=== PATIENT | female | born 1965 | race Caucasian/White ===

== ENCOUNTER 2022-05-20 13:59 | Day surgery (SDC) | payer BC ==
[2022-05-20 15:16] LABS: BASOPHILS # (AUTO) 0.1 X10'3 (0-0.2); BASOPHILS % (AUTO) 0.6 % (0-1); EOSINOPHILS # (AUTO) 0.3 X10'3 (0-0.9); EOSINOPHILS % (AUTO) 2.3 % (0-6); LYMPHOCYTES # (AUTO) 1.9 X10'3 (1.1-4.8); LYMPHOCYTES % (AUTO) 15.4 % (21-51); MEAN CORPUSCULAR HEMOGLOBIN 28.9 PG (27.0-31.0); MEAN CORPUSCULAR HGB CONC 33.4 g/dL (33.0-36.5); MEAN CORPUSCULAR VOLUME 86.5 FL (78-98); MEAN PLATELET VOLUME 9.2 FL (7.4-10.4); MONOCYTES # (AUTO) 0.9 X10'3 (0-0.9); MONOCYTES % (AUTO) 7.3 % (2-12); NEUTROPHILS % (AUTO) 74.4 % (42-75); PRE OP HEMATOCRIT 45.7 % (35.0-45.0); PRE OP HEMOGLOBIN 15.3 g/dL (12.0-16.0); PRE OP PLATELET COUNT 287 X10'3 (140-440); RED BLOOD COUNT 5.28 X10'6 (4.20-5.60); RED CELL DISTRIBUTION WIDTH 13.4 % (11.5-14.5)
[2022-05-20 15:29] LABS: PRE OP INR 0.9 INR; PRE OP PROTIME 9.8 SECONDS (9.0-12.0)
[2022-05-20 15:30] LABS: ALBUMIN 3.3 G/DL (3.4-5.0); ALBUMIN/GLOBULIN RATIO 0.9 (1.1-1.5); ALKALINE PHOSPHATASE 114 IU/L (46-116); BLOOD UREA NITROGEN 18 MG/DL (7-18); CALCIUM 8.8 MG/DL (8.5-10.1); CHLORIDE 100 MMOL/L (99-107); CREATININE 1.06 MG/DL (0.40-0.90); PRE OP ALT 24 U/L (30-65); PRE OP ANION GAP 6 (8-16); PRE OP AST 10 U/L (10-37); PRE OP BILIRUB, TOTAL 0.5 MG/DL (0.0-1.0); PRE OP POTASSIUM 3.4 MMOL/L (3.4-5.1); PRE OP SODIUM 137 MMOL/L (135-145); TOTAL CARBON DIOXIDE 30.8 MMOL/L (24-32); TOTAL PROTEIN 6.9 G/DL (6.4-8.2); eGFR 53 ML/MIN
[2022-05-20 15:35] LABS: PRE OP GLUCOSE 300 MG/DL (70-104)
[2022-05-20 15:39] LABS: HEMOGLOBIN A1C 12.1 % (4.5-6.2)
[2022-05-20] MEDS ORDERED: ATOR40TA PO (15:57)
[2022-05-20] MEDS ORDERED: HYDR12.55 PO (15:57)
[2022-05-20] MEDS ORDERED: SEMA1PEN3 (15:57)
[2022-05-20] MEDS ORDERED: ASPI-529 PO (15:57)
[2022-05-20] MEDS ORDERED: METF-900 PO (15:57)
[2022-05-20] MEDS ORDERED: LOSA25TA96 PO (15:57)
[2022-05-20] MEDS ORDERED: AMLO2.5T2 PO (15:57)
[2022-05-20] MEDS ORDERED: ESCI5TAB PO (15:57)
== END 2022-05-20 23:59 | disposition home or self-care (01) ==
LOC: PRE-OP 13:59 → EDSTATUS 05-23 11:15
PROVIDERS: ATTEND Surgery
DX: Z01.818 Encounter for other preprocedural examination (principal); D49.0 Neoplasm of unspecified behavior of digestive system; Z79.01 Long term (current) use of anticoagulants; Z79.899 Other long term (current) drug therapy; Z98.890 Other specified postprocedural states; Z88.2 Allergy status to sulfonamides; F17.210 Nicotine dependence, cigarettes, uncomplicated; Z90.710 Acquired absence of both cervix and uterus; F41.9 Anxiety disorder, unspecified; E66.01 Morbid (severe) obesity due to excess calories; E11.9 Type 2 diabetes mellitus without complications; Z85.42 Personal history of malignant neoplasm of other parts of uterus
CPT/HCPCS: 36415; 71046; 80053; 83036; 85025; 85610; 85730; 86885; 86900; 86901; 87081; 93005

== ENCOUNTER 2022-06-17 05:48 | Inpatient (IN) | payer BC ==
[2022-06-10 11:26] LABS: BASOPHILS # (AUTO) 0.1 X10'3 (0-0.2); BASOPHILS % (AUTO) 0.6 % (0-1); EOSINOPHILS # (AUTO) 0.2 X10'3 (0-0.9); EOSINOPHILS % (AUTO) 2.2 % (0-6); LYMPHOCYTES # (AUTO) 1.5 X10'3 (1.1-4.8); MEAN CORPUSCULAR HEMOGLOBIN 29.1 PG (27.0-31.0); MEAN CORPUSCULAR HGB CONC 33.6 g/dL (33.0-36.5); MEAN CORPUSCULAR VOLUME 86.7 FL (78-98); MEAN PLATELET VOLUME 9.5 FL (7.4-10.4); MONOCYTES # (AUTO) 0.5 X10'3 (0-0.9); MONOCYTES % (AUTO) 6.1 % (2-12); NEUTROPHILS # (AUTO) 6.6 X10'3 (1.8-7.7); NEUTROPHILS % (AUTO) 74.1 % (42-75); PRE OP HEMATOCRIT 47.2 % (35.0-45.0); PRE OP HEMOGLOBIN 15.8 g/dL (12.0-16.0); PRE OP PLATELET COUNT 292 X10'3 (140-440); RED BLOOD COUNT 5.44 X10'6 (4.20-5.60); RED CELL DISTRIBUTION WIDTH 13.4 % (11.5-14.5)
[2022-06-10 11:37] LABS: CLARITY,URINE CLEAR (Clear); COLOR,URINE YELLOW (Yellow); GLUCOSE, URINE >=1000 mg/dl (Neg); KETONES,URINE NEGATIVE (Neg); LEUKOCYTE ESTERASE ,URINE NEGATIVE (Neg); NITRITES, URINE NEGATIVE (Neg); OCCULT BLOOD,URINE NEGATIVE (Neg); PROTEIN,URINE 30 mg/dl (Neg); UROBILINOGEN,URINE 0.2 E.U/dL (0.2-1.0)
[2022-06-10 11:39] LABS: PRE OP INR 0.9 INR; PRE OP PROTIME 9.8 SECONDS (9.0-12.0)
[2022-06-10 11:40] LABS: BLOOD UREA NITROGEN 19 MG/DL (7-18); BUN/CREATININE RATIO 16.7 (6.6-38.0); CHLORIDE 97 MMOL/L (99-107); CREATININE 1.14 MG/DL (0.40-0.90); PRE OP ANION GAP 9 (8-16); PRE OP POTASSIUM 3.4 MMOL/L (3.4-5.1); PRE OP SODIUM 135 MMOL/L (135-145); TOTAL CARBON DIOXIDE 29.2 MMOL/L (24-32)
[2022-06-10 11:40] LABS: UA COLLECTION TYPE CLN CATCH MIDSTREAM
[2022-06-10 11:41] LABS: ALBUMIN 3.2 G/DL (3.4-5.0); ALBUMIN/GLOBULIN RATIO 0.8 (1.1-1.5); ALKALINE PHOSPHATASE 107 IU/L (46-116); CALCIUM 8.7 MG/DL (8.5-10.1); PRE OP ALT 16 U/L (30-65); PRE OP AST 12 U/L (10-37); PRE OP BILIRUB, TOTAL 0.5 MG/DL (0.0-1.0); eGFR 49 ML/MIN
[2022-06-10 11:42] LABS: PRE OP GLUCOSE 349 MG/DL (70-104)
[2022-06-10 11:45] LABS: YEAST MODERATE /HPF (NEGATIVE)
[2022-06-10 11:46] LABS: BACTERIA,URINE 2+ /HPF (Neg); MUCUS STRANDS NONE SEEN /LPF (Neg); RBC,URINE 0-2 /HPF (0-2); SQUAMOUS EPITHELIAL CELL,UR MODERATE /LPF (FEW)
[~2022-06-17] VITALS: Ht 154.9 cm; Wt 120.5 kg
[2022-06-17] VITALS (31 sets, daily range): BP systolic 147–189; BP diastolic 65–108
[~2022-06-17 05:48] MED LIST: AMLO2.5T2 PO; ASPI-529 PO; ATOR40TA PO; ESCI5TAB PO; HYDR12.55 PO; LOSA25TA96 PO; METF-900 PO; SEMA1PEN3; albuterol 2.5 MG/3 ML nebule NEB ONE; ceFOXitin 2GM-NS 100mL ADDvant 100 ML IV ONE; famotidine 20mg tablet PO ONE; ringers solution, lacted 1,000 ML IV SCH
[2022-06-17] MEDS ORDERED: insulin regular, human U-100 3ml vial - multi-dose IV ONE ×3 (06:25→12:00)
[2022-06-17] MEDS ORDERED: insulin regular, human 10 units/0.1 ml syringe IV ONE (08:00)
[2022-06-17] MEDS ORDERED: INDOCYANINE GREEN 25 MG/10 ML VIAL IV ONE ×3 (08:25→14:16)
[2022-06-17] MEDS: BUPIVAcaine/PF 2.5 mg/ml (0.25%) 30ml vial ONE ×2 (08:45→13:15)
[2022-06-17] MEDS ORDERED: fentaNYL /PF 50mcg/ml 5ml ampule ONE (08:50)
[2022-06-17] MEDS ORDERED: BUPIVACAINE liposomal/PF 13.3 MG/ML vial IM ONE (08:56)
[2022-06-17] MEDS ORDERED: BUPIVAcaine/PF 2.5 mg/ml (0.25%) 30ml vial ONE (08:56)
[2022-06-17] MEDS ORDERED: sevoflurane 250ml liquid IH ONE (12:20)
[2022-06-17] MEDS ORDERED: propofol inj 20 ML IV ONE (13:05)
[2022-06-17] MEDS ORDERED: rocuronium 10mg/ml inj IV ONE ×3 (13:06→14:28)
[2022-06-17] MEDS ORDERED: ondansetron/PF 4mg/2ml inj ONE (13:06)
[2022-06-17] MEDS ORDERED: LIDOcaine 2% (20mg/ml) 5ml vial ONE (13:06)
[2022-06-17] MEDS ORDERED: labetalol 20mg/4ml (5mg/ml) syringe IV ONE ×3 (13:29→16:18)
[2022-06-17] MEDS ORDERED: fentaNYL/PF 50MCG/1 ML 2ML syringe IV PRN ×2 (13:40)
[2022-06-17] MEDS ORDERED: labetalol 20mg/4ml (5mg/ml) syringe IV PRN (13:40)
[2022-06-17] MEDS ORDERED: ringers solution, lacted 1,000 ML IV SCH (13:40)
[2022-06-17] MEDS ORDERED: morphine 2 MG/ML inj. syringe IV PRN (13:40)
[2022-06-17] MEDS ORDERED: morphine 4 MG/ML inj SYRINge IV PRN (13:40)
[2022-06-17] MEDS ORDERED: ondansetron/PF 4mg/2ml inj IV PRN ×2 (13:40→16:50)
[2022-06-17] MEDS ORDERED: hydrALAZINE 20mg/ml inj. IV ONE ×2 (13:46→15:58)
[2022-06-17] MEDS ORDERED: sugammadex 200mg/2ml injection IV ONE (13:50)
--- NOTE | 2022-06-17 16:45 | NUR ---
Received from OR via HOSPITAL BED, accompanied by Anesthesiologist and OR NURSE. PT DROWSY DOES NOT APPEAR TO BE IN DISTRESS OR DISCOMFORT. ABDOMEN WITH 4 LAP SITES; 2 WITH BANDAIDS AND 2 WITH ALAN AND SMALL TEFLA DRESSING. ALAN WITH SEROSANGUINESS DRAINAGE. VELASCO CATHETER TO GRAVITY WITH YELLOW URINE. PT HTN; MD AWARE WILL GIVE MEDS PER ORDER. report given by Anesthesiolgist. Addendum: 06/17/22 at 1731 by Lavern Padilla RN Amended: Links added.
[2022-06-17] MEDS ORDERED: naloxone 0.4 mg/ml inj IV PRN (16:50)
[2022-06-17] MEDS ORDERED: HYDROmorphone inj. 0.5 MG/0.5 ML DISP.SYRIN IV PRN (16:50)
[2022-06-17] MEDS ORDERED: MESSAGE TO PHARMACY PO ONE (17:05)
[2022-06-17] MEDS ORDERED: dextrose 50%-water 50ml dispensing syringe IV PRN ×2 (17:05)
[2022-06-17] MEDS ORDERED: glucagon, human recombinant 1mg kit SUBCUT PRN (17:05)
[2022-06-17] MEDS ORDERED: DEXTROSE 15 GM of carb/4 tabs (each vial/BOTTLE has 4 tablets) PO PRN ×2 (17:05)
[2022-06-17] MEDS ORDERED: insulin Lispro (HumaLOG) vial - multi-dose SQ SCH ×2 (17:05→17:49)
--- NOTE | 2022-06-17 17:14 | NUR ---
PT VOMITED GREEN BILE WITH CONCERN OF ASPIRATION. 50 ML OUTPUT; MALATHI GIVEN AND NOTIFIED. ORDERS FOR CHEST XRAY Addendum: 06/17/22 at 1735 by Lavern Padilla RN Amended: Links added.
[2022-06-17] MEDS: hydrALAZINE 20mg/ml inj. IV PRN ×2 (17:16→18:06)
--- NOTE | 2022-06-17 18:55 | NUR ---
Received report from LEANDRO Govea. Awaiting patient arrival to the floor.
[2022-06-17 19:05] LABS: ABG BASE EXCESS -2.4 mmol/L (-2.0-2.0); ABG HCO3 22.7 mmol/L (22.0-26.0); ABG PCO2 (T) 38.8 mmHg (32.0-45.0); ABG PO2 (T) 71.4 mmHg (75.0-100.0); ALLEN'S TEST POSITIVE; FCOHb 0.4 % (0.0-3.9); FLOW 4 L/min; FMetHb 0.4 % (0.0-1.5); FO2Hb 94.2 % (94-97); PATIENT TEMPERATURE 36.3
[2022-06-17] MEDS: nitroGLYCERIN 0.4mg/hour patch TD SCH (19:09)
[2022-06-17] MEDS: metoclopramide 5 mg/ml inj IV SCH (19:16)
--- NOTE | 2022-06-17 19:55 | NUR ---
DR MARTINEZ IN TO ASSESS PT; PT HAD SMALL AMOUNT OF GREEN BILE EMESIS,ORDERS RECEIVED TO PLACX AN NGT AND REMOVE IF NO OUTPUT. NG PLACED PT DID NOT TOLERATE WELL, NO OUTPUT, NGT D'CD. Report called to receiving nurse. Transferred via BED. 2 BAGS OF Belongings RECEIVING NURSE AT BEDSIDE; BLL, CALL LIGHT GIVEN. SR UP X2. Special Issues communicated to receiving nurse. Addendum: 06/17/22 at 2105 by Lavern Padilla RN Amended: Links added.
[2022-06-17] MEDS: Potassium Cl inj 20 MEQ in ringers solution, lacted 1,000 ML IV SCH (22:04)
[2022-06-17] MEDS: insulin glargine (Lantus) pen - multi-dose SQ SCH (22:37)
[2022-06-18] VITALS (7 sets, daily range): BP systolic 132–203; BP diastolic 65–91
[2022-06-18] MEDS: Potassium Cl inj 20 MEQ in ringers solution, lacted 1,000 ML IV SCH ×3 (00:55→17:05)
[2022-06-18] MEDS: ceFOXitin inj 1,000 MG in normal saline 100ml IV soln 100 ML IV SCH ×2 (01:28→07:31)
[2022-06-18] MEDS: metoclopramide 5 mg/ml inj IV SCH ×4 (01:29→20:24)
[2022-06-18 06:10] LABS: BASOPHILS % (AUTO) 0.2 % (0-1); EOSINOPHILS % (AUTO) 0 % (0-6); HEMATOCRIT 43.7 % (35.0-45.0); HEMOGLOBIN 14.7 g/dl (12.0-16.0); LYMPHOCYTES # (AUTO) 0.9 X10'3 (1.1-4.8); LYMPHOCYTES % (AUTO) 4.8 % (21-51); MEAN CORPUSCULAR HEMOGLOBIN 29.4 PG (27.0-31.0); MEAN CORPUSCULAR HGB CONC 33.5 g/dL (33.0-36.5); MEAN CORPUSCULAR VOLUME 87.7 FL (78-98); MEAN PLATELET VOLUME 9.5 FL (7.4-10.4); MONOCYTES # (AUTO) 1.1 X10'3 (0-0.9); MONOCYTES % (AUTO) 5.9 % (2-12); NEUTROPHILS # (AUTO) 16.1 X10'3 (1.8-7.7); NEUTROPHILS % (AUTO) 89.1 % (42-75); PLATELET COUNT 263 X10'3 (140-440); RED BLOOD COUNT 4.98 X10'6 (4.20-5.60); RED CELL DISTRIBUTION WIDTH 13.9 % (11.5-14.5); WHITE BLOOD COUNT 18.1 X10'3 (4.5-11.0)
[2022-06-18 06:11] LABS: ALBUMIN 2.9 G/DL (3.4-5.0); ANION GAP 9 (8-16); BLOOD UREA NITROGEN 13 MG/DL (7-18); BUN/CREATININE RATIO 9.6 (6.6-38.0); CALCIUM 8.4 MG/DL (8.5-10.1); CHLORIDE 100 MMOL/L (99-107); CREATININE 1.35 MG/DL (0.40-0.90); GLUCOSE 344 MG/DL (70-104); POTASSIUM 3.4 MMOL/L (3.5-5.1); SODIUM 139 MMOL/L (135-145); TOTAL CARBON DIOXIDE 29.7 MMOL/L (24-32); eGFR 40 ML/MIN
--- NOTE | 2022-06-18 06:20 | NUR ---
received report from fer arguello
--- NOTE | 2022-06-18 06:22 | NUR ---
Problems reprioritized. Patient report given, questions answered & plan of care reviewed with LEANDRO Mclean.
[2022-06-18] MEDS: aspirin 81mg, enteric-coated 1 TAB TABLET.DR PO SCH (07:30)
[2022-06-18] MEDS: HYDROcodone/acetaminophen 5mg/325mg tablet PO PRN ×2 (07:30→20:34)
[2022-06-18] MEDS: atorvastatin 20mg tablet PO SCH (07:31)
[2022-06-18] MEDS ORDERED: amLODIPine 2.5mg tablet PO SCH (08:00)
[2022-06-18] MEDS: nitroGLYCERIN 0.4mg/hour patch TD SCH (08:00)
[2022-06-18] MEDS ORDERED: ESCITALOPRAM OXALATE 5 MG TABLET PO SCH ×2 (08:00→10:18)
[2022-06-18] MEDS: insulin Lispro (HumaLOG) vial - multi-dose SQ SCH ×3 (09:02→19:16)
[2022-06-18] MEDS ORDERED: potassium Cl 40MEQ/1/2NS 520ml 520 ML IV PRN ×2 (13:45)
[2022-06-18] MEDS ORDERED: potassium Cl 20 mEq SR tablet PO PRN (13:45)
--- NOTE | 2022-06-18 14:16 | NUR ---
THIS MORNING I WALKED PT TO BATHROOM TO VOID PT HAS NOT HAS VOIDED FOR A WHILE THEREFORE, I BLADDER SCANNED PT, SCANNER SHOWED 3ML IN BLADDER, CONTINUE TO ENCOURAGE PO INTAKE
--- NOTE | 2022-06-18 14:54 | NUR ---
EDUCATED PT ON USING HER IS, PT RETURNED DEMO HOW TO USE TO IS, CONTINUE TO ENCOURAGE PT TO USE HER IS
[2022-06-18] MEDS: potassium Cl 20 mEq SR tablet PO PRN ×2 (15:12→20:32)
--- NOTE | 2022-06-18 15:53 | NUR ---
[facility] PHARMACIST DISCOVERED THAT PT TAKES 10 MG OF LEXAPRO DAILY AT HOME, THIS MORNING PT TOOK 50 MG OF LEXAPRO THAT WAS SCHEDULED TO BE ADMIN ON HER EMAR, PT DOES REPORT CURRENTLY TAKING LEXAPRO BUT IS UNABLE TO TELL THE NURSE THE DOSE, [facility] PHARMACIST AND NURSE CALLED PT [facility] ON [address] IN [place], [place] AND [facility] TOLD ME AND [facility] PHARMACIST THAT PT HAS NOT FILLED HER 10 MG LEXAPRO SINCE SEP 2021, THEREFORE, [facility] DISCONTINUED LEXAPRO AT THIS TIME, SURGEON IN SURGERY AT THIS TIME, THEREFORE UNABLE TO NOTIFY SURGEON OF MEDICATION STOPPAGE, CONTINUE TO MONITOR PT
--- NOTE | 2022-06-18 18:21 | NUR ---
GAVE REPORT TO February
[2022-06-18] MEDS: ceFOXitin 2GM-NS 100mL ADDvant 100 ML IV SCH (20:17)
[2022-06-18] MEDS: losartan 50mg tablet PO SCH (20:21)
[2022-06-18] MEDS: HYDROchlorothiazide 12.5mg capsule PO SCH (20:22)
[2022-06-18] MEDS: insulin glargine (Lantus) pen - multi-dose SQ SCH (22:54)
[2022-06-19] VITALS (8 sets, daily range): BP systolic 163–199; BP diastolic 78–93
[2022-06-19] MEDS: Potassium Cl inj 20 MEQ in ringers solution, lacted 1,000 ML IV SCH ×3 (01:10→17:20)
[2022-06-19] MEDS ORDERED: nitroGLYCERIN 0.4mg/hour patch TD SCH ×2 (02:12→02:17)
[2022-06-19] MEDS: metoclopramide 5 mg/ml inj IV SCH ×4 (02:28→21:13)
[2022-06-19] MEDS: ceFOXitin 2GM-NS 100mL ADDvant 100 ML IV SCH ×4 (02:28→21:13)
[2022-06-19] MEDS: potassium Cl 20 mEq SR tablet PO PRN (02:50)
[2022-06-19] MEDS: HYDROcodone/acetaminophen 5mg/325mg tablet PO PRN (05:33)
--- NOTE | 2022-06-19 06:10 | NUR ---
Patient in room ORTHO 4021. I have received report from February and had the opportunity to ask questions and assume patient care.
[2022-06-19 06:12] LABS: BASOPHILS % (AUTO) 0.2 % (0-1); EOSINOPHILS % (AUTO) 0.1 % (0-6); HEMATOCRIT 43.3 % (35.0-45.0); HEMOGLOBIN 14.1 g/dl (12.0-16.0); LYMPHOCYTES # (AUTO) 1.1 X10'3 (1.1-4.8); LYMPHOCYTES % (AUTO) 6.8 % (21-51); MEAN CORPUSCULAR HEMOGLOBIN 29.2 PG (27.0-31.0); MEAN CORPUSCULAR HGB CONC 32.6 g/dL (33.0-36.5); MEAN CORPUSCULAR VOLUME 89.5 FL (78-98); MEAN PLATELET VOLUME 9.7 FL (7.4-10.4); MONOCYTES # (AUTO) 1.1 X10'3 (0-0.9); MONOCYTES % (AUTO) 6.9 % (2-12); NEUTROPHILS # (AUTO) 13.9 X10'3 (1.8-7.7); PLATELET COUNT 260 X10'3 (140-440); RED BLOOD COUNT 4.84 X10'6 (4.20-5.60); RED CELL DISTRIBUTION WIDTH 14.4 % (11.5-14.5); WHITE BLOOD COUNT 16.2 X10'3 (4.5-11.0)
[2022-06-19 06:16] LABS: ALBUMIN 2.9 G/DL (3.4-5.0); ANION GAP 9 (8-16); BLOOD UREA NITROGEN 12 MG/DL (7-18); BUN/CREATININE RATIO 9.8 (6.6-38.0); CALCIUM 8.9 MG/DL (8.5-10.1); CHLORIDE 104 MMOL/L (99-107); CREATININE 1.22 MG/DL (0.40-0.90); GLUCOSE 228 MG/DL (70-104); POTASSIUM 3.8 MMOL/L (3.5-5.1); SODIUM 142 MMOL/L (135-145); TOTAL CARBON DIOXIDE 29.1 MMOL/L (24-32); eGFR 45 ML/MIN
[2022-06-19] MEDS: aspirin 81mg, enteric-coated 1 TAB TABLET.DR PO SCH (08:14)
[2022-06-19] MEDS: amLODIPine 5mg tablet PO SCH (08:15)
[2022-06-19] MEDS: atorvastatin 20mg tablet PO SCH (08:15)
[2022-06-19] MEDS: insulin Lispro (HumaLOG) vial - multi-dose SQ SCH ×3 (08:37→19:08)
--- NOTE | 2022-06-19 13:06 | NUR ---
Reviewed charting with Amanda during documentation. I agree with the charted assessment.
--- NOTE | 2022-06-19 18:23 | NUR ---
Problems reprioritized. Patient report given, questions answered & plan of care reviewed with Kavita.
--- NOTE | 2022-06-19 18:23 | NUR ---
Patient in room ORTHO 4021. I have received report from Chaya REEVES and had the opportunity to ask questions and assume patient care.
[2022-06-19] MEDS: HYDROchlorothiazide 12.5mg capsule PO SCH (21:14)
[2022-06-19] MEDS: losartan 50mg tablet PO SCH (21:14)
[2022-06-19] MEDS: insulin glargine (Lantus) pen - multi-dose SQ SCH (21:36)
[2022-06-20] MEDS: ceFOXitin 2GM-NS 100mL ADDvant 100 ML IV SCH ×4 (01:23→15:19)
[2022-06-20] MEDS: Potassium Cl inj 20 MEQ in ringers solution, lacted 1,000 ML IV SCH ×2 (02:06→09:30)
[2022-06-20] MEDS: metoclopramide 5 mg/ml inj IV SCH ×4 (02:06→15:19)
[2022-06-20] MEDS: HYDROcodone/acetaminophen 5mg/325mg tablet PO PRN (05:10)
[2022-06-20] MEDS: amLODIPine 5mg tablet PO SCH (06:09)
[2022-06-20 06:21] LABS: BASOPHILS % (AUTO) 0.3 % (0-1); EOSINOPHILS # (AUTO) 0.2 X10'3 (0-0.9); EOSINOPHILS % (AUTO) 1.3 % (0-6); HEMATOCRIT 42.6 % (35.0-45.0); HEMOGLOBIN 14.2 g/dl (12.0-16.0); LYMPHOCYTES # (AUTO) 1.5 X10'3 (1.1-4.8); MEAN CORPUSCULAR HEMOGLOBIN 29.6 PG (27.0-31.0); MEAN CORPUSCULAR HGB CONC 33.4 g/dL (33.0-36.5); MEAN CORPUSCULAR VOLUME 88.6 FL (78-98); MEAN PLATELET VOLUME 9.5 FL (7.4-10.4); MONOCYTES % (AUTO) 7.8 % (2-12); NEUTROPHILS % (AUTO) 78.6 % (42-75); PLATELET COUNT 234 X10'3 (140-440); RED BLOOD COUNT 4.81 X10'6 (4.20-5.60); WHITE BLOOD COUNT 12.7 X10'3 (4.5-11.0)
--- NOTE | 2022-06-20 06:28 | NUR ---
Problems reprioritized. Patient report given, questions answered & plan of care reviewed with Dione REEVES.
[2022-06-20 06:53] LABS: ALBUMIN 2.7 G/DL (3.4-5.0); ANION GAP 8 (8-16); BLOOD UREA NITROGEN 10 MG/DL (7-18); CALCIUM 8.9 MG/DL (8.5-10.1); CHLORIDE 103 MMOL/L (99-107); CREATININE 0.91 MG/DL (0.40-0.90); GLUCOSE 149 MG/DL (70-104); POTASSIUM 3.4 MMOL/L (3.5-5.1); SODIUM 142 MMOL/L (135-145); TOTAL CARBON DIOXIDE 31.2 MMOL/L (24-32); eGFR 63 ML/MIN
[2022-06-20 07:30] VITALS: BP 196/99
[2022-06-20] MEDS: aspirin 81mg, enteric-coated 1 TAB TABLET.DR PO SCH (09:21)
[2022-06-20] MEDS: atorvastatin 20mg tablet PO SCH (09:21)
[2022-06-20] MEDS: insulin Lispro (HumaLOG) vial - multi-dose SQ SCH (09:24)
[2022-06-20 10:00] VITALS: BP 182/93
--- NOTE | 2022-06-20 10:31 | NUR ---
0800 dose of mefoxin "out for delivery" per pharmacy @ 4190
--- NOTE | 2022-06-20 16:35 | NUR ---
Patient stable and appropriate for discharge home. IV and library monitor removed. All belongings taken from room. ALAN drain dc'd without incident. All discharge instructions and education given and reviewed with patient, all questions answered. New RX sent by Dr. Roa office.
== END 2022-06-20 16:30 | disposition home or self-care (01) | DRG 331 ==
LOC: PAS IN 05:48 → ORTHO 4S 20:01
PROVIDERS: ADMIT Surgery; ATTEND Surgery
PROC: 0DTF0ZZ Resection of Right Large Intestine, Open Approach (ICD-10-PCS; principal; 2022-06-18)
PROC: 8E0W0CZ Robotic Assisted Procedure of Trunk Region, Open Approach (ICD-10-PCS; 2022-06-18)
DX: D12.2 Benign neoplasm of ascending colon (principal); Z79.899 Other long term (current) drug therapy; Z20.822 Contact with and (suspected) exposure to COVID-19
CPT/HCPCS: Z7506; Z7508; 36415; 36600; 71045; 80048; 80053; 81001; 82803; 82948; 85018; 85025; 85610; 85730; 86885; 86900; 86901; 87081; 87088; 87811; A4215; A4615; A4618; A6209; A6223; A6258; A6402; C1758; C9290; G0378; J0360; J0694; J1170; J1815; J2405; J2704; J2765; J3010; J3480; J3490; J7030; J7120

== ENCOUNTER 2022-12-04 17:07 | Inpatient (IN) | payer BC ==
[~2022-12-04] VITALS: Ht 154.9 cm; Wt 130.0 kg
[2022-12-04] MEDS: normal saline 1000ml 1,000 ML IV SCH ×2 (02:00→21:40)
[~2022-12-04 17:07] MED LIST changes: +ASPI-280 PO; +ATOR20TA66 PO; +CLOP75TA34 PO; -ESCI5TAB PO; -METF-900 PO; -SEMA1PEN3; -albuterol 2.5 MG/3 ML nebule NEB ONE; -ceFOXitin 2GM-NS 100mL ADDvant 100 ML IV ONE; -famotidine 20mg tablet PO ONE; -ringers solution, lacted 1,000 ML IV SCH
--- NOTE | 2022-12-04 17:46 | NUR ---
back from CT
[2022-12-04 17:51] LABS: BASOPHILS % (AUTO) 0.3 % (0-1); EOSINOPHILS % (AUTO) 0.1 % (0-6); HEMATOCRIT 50.4 % (35.0-45.0); HEMOGLOBIN 16.2 g/dl (12.0-16.0); LYMPHOCYTES # (AUTO) 1.1 X10'3 (1.1-4.8); LYMPHOCYTES % (AUTO) 7.8 % (21-51); MEAN CORPUSCULAR HEMOGLOBIN 28.7 PG (27.0-31.0); MEAN CORPUSCULAR HGB CONC 32.1 g/dL (33.0-36.5); MEAN CORPUSCULAR VOLUME 89.4 FL (78-98); MEAN PLATELET VOLUME 9.5 FL (7.4-10.4); MONOCYTES # (AUTO) 0.9 X10'3 (0-0.9); MONOCYTES % (AUTO) 6.4 % (2-12); NEUTROPHILS # (AUTO) 11.9 X10'3 (1.8-7.7); NEUTROPHILS % (AUTO) 85.4 % (42-75); PLATELET COUNT 339 X10'3 (140-440); RED BLOOD COUNT 5.64 X10'6 (4.20-5.60); RED CELL DISTRIBUTION WIDTH 13.3 % (11.5-14.5); WHITE BLOOD COUNT 13.9 X10'3 (4.5-11.0)
[2022-12-04 18:05] LABS: APTT 25 SECONDS (22-32)
[2022-12-04 18:13] LABS: ALANINE AMINOTRANSFERASE 23 U/L (12-78); ALBUMIN 3.8 G/DL (3.4-5.0); ALBUMIN/GLOBULIN RATIO 1.1 (1.1-1.5); ALKALINE PHOSPHATASE 113 IU/L (46-116); ANION GAP 8 (8-16); ASPARTATE AMINO TRANSFERASE 16 U/L (10-37); BILIRUBIN,TOTAL 1.2 MG/DL (0.1-1.0); BLOOD UREA NITROGEN 61 MG/DL (7-18); BUN/CREATININE RATIO 31.8 (6.6-38.0); CALCIUM 10.2 MG/DL (8.5-10.1); CHLORIDE 95 MMOL/L (99-107); CREATININE 1.92 MG/DL (0.40-0.90); GLUCOSE 342 MG/DL (70-104); SODIUM 139 MMOL/L (135-145); TOTAL CARBON DIOXIDE 36.2 MMOL/L (24-32); TOTAL PROTEIN 7.4 G/DL (6.4-8.2); eGFR 27 ML/MIN
[2022-12-04] MEDS ORDERED: normal saline 1000ML IV soln IVB ONE ×2 (18:35→19:30)
[2022-12-04] MEDS ORDERED: potassium Cl 20 mEq SR tablet PO ONE (18:37)
[2022-12-04 18:44] LABS: CLARITY,URINE SLIGHTLY CLOUDY (Clear); COLOR,URINE YELLOW (Yellow); GLUCOSE, URINE 500 mg/dl (Neg); KETONES,URINE TRACE mg/dl (Neg); LEUKOCYTE ESTERASE ,URINE NEGATIVE (Neg); NITRITES, URINE NEGATIVE (Neg); OCCULT BLOOD,URINE NEGATIVE (Neg); PH,URINE 5.5 (4.8-8.0); PROTEIN,URINE 30 mg/dl (Neg); UROBILINOGEN,URINE 0.2 E.U/dL (0.2-1.0)
[2022-12-04 18:51] LABS: UA COLLECTION TYPE STRAIGHT CATH
[2022-12-04 18:55] LABS: BACTERIA,URINE 2+ /HPF (Neg); MUCUS STRANDS FEW /LPF (Neg); SQUAMOUS EPITHELIAL CELL,UR FEW /LPF (FEW); TRANSITIONAL EPI CELLS,URINE FEW /HPF
[2022-12-04] MEDS ORDERED: CefTRIAXone 2gm/D5W 50ml BAG 50 ML IV ONE (19:30)
[2022-12-04] MEDS ORDERED: CEPH500C2 PO (20:50)
--- NOTE | 2022-12-04 21:32 | NUR ---
Pt. was helped getting OOB to w/c with max assist for discharge. Spoke with Dr. Dixon and felt this would not be a safe discharge. Dr. Dixon at bedside while I went to get larger W/C. Upon my return patient had slid down to the floor. Required max assist to get patient back to bed. Discharge cancelled per Dr. Dixon. Pt. minimally verbalizes, only able to answer questions that are yes/no answers and able to say her first and middle name.
[2022-12-04] MEDS ORDERED: ondansetron 4mg rapidly disintigrating tab PO PRN (21:40)
[2022-12-04] MEDS ORDERED: magnesium hydroxide 30ml (MOM) UD suspension PO PRN (21:40)
[2022-12-04] MEDS ORDERED: ondansetron/PF 4mg/2ml inj IV PRN (21:40)
[2022-12-04] MEDS ORDERED: Insulin Reg/NS 100units/100mL 100 ML IV SCH (21:40)
[2022-12-04] MEDS ORDERED: sodium bicarbonate (8.4%) inj. 50 MEQ in dextrose 5% water 500ml 250 ML IV PRN (21:40)
[2022-12-04] MEDS ORDERED: acetaminophen 650mg rectal suppository RC PRN (21:40)
[2022-12-04] MEDS ORDERED: sodium bicarbonate (8.4%) inj. 100 MEQ in dextrose 5% water 500ml 500 ML IV PRN (21:40)
[2022-12-04] MEDS ORDERED: potassium Cl 20 mEq SR tablet PO PRN ×3 (21:40)
[2022-12-04] MEDS ORDERED: sodium phosphate inj. 15 MMOL in dextrose 5%-water 250 ML IV PRN (21:40)
[2022-12-04] MEDS ORDERED: Neutra Phos packet PO PRN (21:40)
[2022-12-04] MEDS ORDERED: mag hydrox/Alum hydrox/simeth 30ml oral suspension PO PRN (21:40)
[2022-12-04] MEDS ORDERED: acetaminophen 325mg tablet PO PRN ×2 (21:40)
[2022-12-04] MEDS ORDERED: insulin regular, human U-100 3ml vial - multi-dose IV PRN (21:40)
[2022-12-04] MEDS ORDERED: magnesium 4gm in 100ml NS 100 ML IV PRN (21:40)
[2022-12-04] MEDS ORDERED: potassium CL 20mEq in D5-1/2NS 1,000 ML IV PRN (21:40)
[2022-12-04] MEDS ORDERED: sodium phosphate inj. 30 MMOL in dextrose 5%-water 250 ML IV PRN (21:40)
[2022-12-04] MEDS ORDERED: magnesium Cl slow-release 64mg tablet PO PRN (21:40)
[2022-12-04] MEDS ORDERED: potassium Cl 40MEQ/1/2NS 520ml 520 ML IV PRN ×3 (21:40)
[2022-12-04] MEDS ORDERED: normal saline 1000ml 1,000 ML IV SCH ×2 (21:40)
[2022-12-04 21:46] LABS: ABG BASE EXCESS 6.9 mmol/L (-2.0-2.0); ABG HCO3 30.3 mmol/L (22.0-26.0); ABG OXYGEN SATURATION 95.3 % (94-97); ABG PCO2 (T) 37.9 mmHg (32.0-45.0); ABG PO2 (T) 70.4 mmHg (75.0-100.0); ALLEN'S TEST POSITIVE; FCOHb 1.4 % (0.0-3.9); FMetHb 0.2 % (0.0-1.5); FO2Hb 93.8 % (94-97); PATIENT TEMPERATURE 36.5; TOTAL HEMOGLOBIN 16.4 G/dl (12.0-16.0)
[2022-12-04 22:15] LABS: PHOSPHORUS 3.3 MG/DL (2.3-4.5)
--- NOTE | 2022-12-04 22:40 | NUR ---
SPOKE TO DR. JACKSON REGARDING STARTING THE INSULIN GTT THAT WAS ORDERED AND K LEVEL OF 3.O. INSULIN GTT NOT TO BE STARTED PER DR. JACKSON, HE PUT IN NEW ORDER FOR INSULIN PROTOCOL AND CANCELLED THE DKA PROTOCOL.
[2022-12-04] MEDS ORDERED: dextrose 50%-water 50ml dispensing syringe IV PRN ×2 (23:30)
[2022-12-04] MEDS ORDERED: insulin regular, human U-100 3ml vial - multi-dose SQ SCH (23:30)
[2022-12-04] MEDS ORDERED: MESSAGE TO PHARMACY PO ONE (23:30)
[2022-12-04] MEDS ORDERED: DEXTROSE 15 GM of carb/4 tabs (each vial/BOTTLE has 4 tablets) PO PRN ×2 (23:30)
[2022-12-04] MEDS ORDERED: glucagon, human recombinant 1mg kit SUBCUT PRN (23:30)
[2022-12-05] MEDS: potassium Cl 40MEQ/1/2NS 520ml 520 ML IV SCH ×2 (00:34→04:21)
[2022-12-05 03:34] LABS: BASOPHILS % (AUTO) 0.2 % (0-1); EOSINOPHILS # (AUTO) 0.1 X10'3 (0-0.9); EOSINOPHILS % (AUTO) 0.5 % (0-6); HEMATOCRIT 43.6 % (35.0-45.0); HEMOGLOBIN 14.2 g/dl (12.0-16.0); LYMPHOCYTES # (AUTO) 1.5 X10'3 (1.1-4.8); MEAN CORPUSCULAR HEMOGLOBIN 29.1 PG (27.0-31.0); MEAN CORPUSCULAR HGB CONC 32.7 g/dL (33.0-36.5); MEAN CORPUSCULAR VOLUME 89.2 FL (78-98); MEAN PLATELET VOLUME 9.5 FL (7.4-10.4); MONOCYTES # (AUTO) 1.5 X10'3 (0-0.9); MONOCYTES % (AUTO) 11.6 % (2-12); NEUTROPHILS # (AUTO) 9.7 X10'3 (1.8-7.7); NEUTROPHILS % (AUTO) 75.7 % (42-75); PLATELET COUNT 284 X10'3 (140-440); RED BLOOD COUNT 4.88 X10'6 (4.20-5.60); RED CELL DISTRIBUTION WIDTH 13.3 % (11.5-14.5); WHITE BLOOD COUNT 12.8 X10'3 (4.5-11.0)
[2022-12-05 03:46] LABS: ALANINE AMINOTRANSFERASE 19 U/L (12-78); ALKALINE PHOSPHATASE 90 IU/L (46-116); ANION GAP 6 (8-16); ASPARTATE AMINO TRANSFERASE 13 U/L (10-37); BILIRUBIN,TOTAL 0.9 MG/DL (0.1-1.0); BLOOD UREA NITROGEN 64 MG/DL (7-18); BUN/CREATININE RATIO 32.7 (6.6-38.0); CALCIUM 8.8 MG/DL (8.5-10.1); CHLORIDE 103 MMOL/L (99-107); CREATININE 1.96 MG/DL (0.40-0.90); GLUCOSE 260 MG/DL (70-104); MAGNESIUM 2.1 MG/DL (1.5-2.4); PHOSPHORUS 3.5 MG/DL (2.3-4.5); POTASSIUM 3.6 MMOL/L (3.5-5.1); SODIUM 143 MMOL/L (135-145); TOTAL CARBON DIOXIDE 33.8 MMOL/L (24-32); eGFR 26 ML/MIN
--- NOTE | 2022-12-05 04:41 | NUR ---
PT. HAS BEEN SLEEPING MOST OF NIGHT WITHOUT DISTRESS. PURE WICK PLACED EARLIER IN THE EVENING, NO URINE OUTPUT AND HAS NOT BEEN INCONTINENT OF URINE.
--- NOTE | 2022-12-05 07:49 | NUR ---
Pt was seen by Cyril Speech Therapist. Patient passed the swallow eval, recommended mechanical soft diet
[2022-12-05] MEDS ORDERED: K and/or MAG REPLACEMENT MC SCH (08:00)
[2022-12-05] MEDS: docusate sod 100mg capsule PO SCH ×2 (08:00→19:39)
--- NOTE | 2022-12-05 08:05 | NUR ---
Attempted to give report to the nurse, the nurse not available at this time, just got a new patient.
[2022-12-05 09:15] VITALS: BP 198/88
--- NOTE | 2022-12-05 09:31 | NUR ---
Received report From Shanna, Patient arrived on floor at 0915, settled in room educated community relations specialist light. B/P , No Meds ordered to lower B/P. Paged Hospitalist Page Sent promotional table spacer PAGER ID: [phone] MESSAGE: RE: 347B Aimee Benitez, B/P , no med orders, please advise. [facility] 3864
[2022-12-05] MEDS: K and/or MAG REPLACEMENT MC SCH ×2 (10:09→19:31)
--- NOTE | 2022-12-05 10:17 | NUR ---
Noted pt hx DM A1C 11.4 11/21/22 recent admit; pt seen by CHRISSY for written/verbal DM diet ed 11/22/22. Pt endorsed non-compliance w/ no desire to follow or seek DM treatment at that time. Addendum: 12/05/22 at [address] Amended: Links added.
[2022-12-05 11:31] VITALS: BP 171/73
[2022-12-05] MEDS: hydrALAZINE 20mg/ml inj. IV PRN (12:28)
[2022-12-05] MEDS: insulin Lispro (HumaLOG) vial - multi-dose SQ SCH (13:19)
[2022-12-05 14:47] VITALS: BP 159/85
--- NOTE | 2022-12-05 16:44 | NUR ---
Per patient request Re 347B Aimee Benitze, Patient requesting X-ray of bilateral knees, has lg bruise on both knees from fall prior to admit. Please advise Patsy, Surgical [id number] Addendum: 12/05/22 at 1645 by Patsy Moore RN Page to Hospitalist
[2022-12-05 18:00] VITALS: BP 166/77
--- NOTE | 2022-12-05 18:12 | NUR ---
Problems reprioritized. Patient report given, questions answered & plan of care reviewed with Daisha RN.
--- NOTE | 2022-12-05 19:04 | NUR ---
Patient in room [facility] 347. I have received report from ALYSON REEVES and had the opportunity to ask questions and assume patient care.
[2022-12-05] MEDS: CefTRIAXone/D5W-Rocephin 1gm 50 ML IV SCH (19:39)
[2022-12-05] MEDS: insulin glargine (Lantus) pen - multi-dose SQ SCH (21:58)
[2022-12-05 22:00] VITALS: BP 137/90
[2022-12-06 04:40] LABS: BASOPHILS # (AUTO) 0.1 X10'3 (0-0.2); BASOPHILS % (AUTO) 0.6 % (0-1); EOSINOPHILS # (AUTO) 0.2 X10'3 (0-0.9); HEMATOCRIT 41.1 % (35.0-45.0); HEMOGLOBIN 13.6 g/dl (12.0-16.0); LYMPHOCYTES # (AUTO) 1.6 X10'3 (1.1-4.8); LYMPHOCYTES % (AUTO) 17.5 % (21-51); MEAN CORPUSCULAR HEMOGLOBIN 29.7 PG (27.0-31.0); MEAN CORPUSCULAR HGB CONC 33.1 g/dL (33.0-36.5); MEAN CORPUSCULAR VOLUME 89.6 FL (78-98); MEAN PLATELET VOLUME 9.4 FL (7.4-10.4); MONOCYTES # (AUTO) 0.8 X10'3 (0-0.9); MONOCYTES % (AUTO) 8.6 % (2-12); NEUTROPHILS # (AUTO) 6.5 X10'3 (1.8-7.7); NEUTROPHILS % (AUTO) 71.3 % (42-75); PLATELET COUNT 260 X10'3 (140-440); RED BLOOD COUNT 4.59 X10'6 (4.20-5.60); RED CELL DISTRIBUTION WIDTH 13.5 % (11.5-14.5); WHITE BLOOD COUNT 9.1 X10'3 (4.5-11.0)
[2022-12-06 04:57] LABS: ALANINE AMINOTRANSFERASE 16 U/L (12-78); ALBUMIN 2.8 G/DL (3.4-5.0); ALKALINE PHOSPHATASE 84 IU/L (46-116); ANION GAP 4 (8-16); ASPARTATE AMINO TRANSFERASE 21 U/L (10-37); BILIRUBIN,TOTAL 0.8 MG/DL (0.1-1.0); BLOOD UREA NITROGEN 59 MG/DL (7-18); BUN/CREATININE RATIO 40.4 (6.6-38.0); CALCIUM 8.8 MG/DL (8.5-10.1); CHLORIDE 107 MMOL/L (99-107); CREATININE 1.46 MG/DL (0.40-0.90); GLUCOSE 167 MG/DL (70-104); MAGNESIUM 1.9 MG/DL (1.5-2.4); PHOSPHORUS 2.7 MG/DL (2.3-4.5); POTASSIUM 3.4 MMOL/L (3.5-5.1); SODIUM 144 MMOL/L (135-145); TOTAL CARBON DIOXIDE 32.7 MMOL/L (24-32); TOTAL PROTEIN 5.7 G/DL (6.4-8.2); eGFR 37 ML/MIN
[2022-12-06 06:23] VITALS: BP 139/85
--- NOTE | 2022-12-06 06:34 | NUR ---
Patient in room [facility] 347. I have received report from LEANDRO King and had the opportunity to ask questions and assume patient care.
--- NOTE | 2022-12-06 06:38 | NUR ---
Problems reprioritized. Patient report given, questions answered & plan of care reviewed with KAMRAN ESCOBEDO.
[2022-12-06] MEDS: K and/or MAG REPLACEMENT MC SCH ×2 (08:00→19:24)
[2022-12-06] MEDS: atorvastatin 20mg tablet PO SCH (08:28)
[2022-12-06] MEDS: docusate sod 100mg capsule PO SCH ×2 (08:29→19:16)
[2022-12-06] MEDS: clopidogrel 75mg tablet PO SCH (08:29)
[2022-12-06] MEDS: aspirin 81mg, enteric-coated 1 TAB TABLET.DR PO SCH (08:32)
--- NOTE | 2022-12-06 08:34 | NUR ---
Student Medication Administration: For this medication-pass time frame, all medication were reviewed, dispensed, administered and documented per hospital policy by Chance lim with Geremias Jameson RN instructor.
[2022-12-06] MEDS: potassium Cl 20 mEq SR tablet PO PRN ×2 (09:01→16:44)
[2022-12-06] MEDS: insulin Lispro (HumaLOG) vial - multi-dose SQ SCH ×3 (09:08→19:15)
[2022-12-06 10:56] VITALS: BP 158/94
[2022-12-06] MEDS: hydrALAZINE 20mg/ml inj. IV PRN ×2 (11:55→19:46)
--- NOTE | 2022-12-06 13:12 | NUR ---
PAGER ID: [phone] MESSAGE: Patient in room 347B, Aimee Benitez had a manual BP of 191/114, PRN Hydralazine 10mg was administered. Recheck BP 176/73. Zoie 2485
[2022-12-06] MEDS ORDERED: amLODIPine 5mg tablet PO ONE (13:15)
[2022-12-06] MEDS: losartan 50mg tablet PO SCH (13:37)
--- NOTE | 2022-12-06 13:41 | NUR ---
Student Medication Administration: For this medication-pass time frame, all medication were reviewed, dispensed, administered and documented per hospital policy by Chance Perez and FANNY Pal
[2022-12-06] MEDS ORDERED: CLOP75TA34 PO (14:17)
[2022-12-06] MEDS ORDERED: ATOR20TA PO (14:17)
--- NOTE | 2022-12-06 14:28 | NUR ---
SLACKLINE OPERATOR documentation: I have reviewed and agree with all interventions, assessments performed and documented by Zoie Alexandra LVN .
[2022-12-06 18:00] VITALS: BP 176/84
--- NOTE | 2022-12-06 18:15 | NUR ---
Problems reprioritized. Patient report given, questions answered & plan of care reviewed with LEANDRO King.
--- NOTE | 2022-12-06 18:16 | NUR ---
Patient in room [facility] 347. I have received report from KAMRAN ESCOBEDO and had the opportunity to ask questions and assume patient care.
--- NOTE | 2022-12-06 18:43 | NUR ---
Student documentation: I have reviewed and agree with all interventions, assessments performed and documented by Joao Soni RN Instructor.
[2022-12-06] MEDS: CefTRIAXone/D5W-Rocephin 1gm 50 ML IV SCH (19:16)
[2022-12-06] MEDS: insulin glargine (Lantus) pen - multi-dose SQ SCH (21:49)
[2022-12-07 04:49] LABS: BASOPHILS # (AUTO) 0.1 X10'3 (0-0.2); BASOPHILS % (AUTO) 0.7 % (0-1); EOSINOPHILS # (AUTO) 0.3 X10'3 (0-0.9); EOSINOPHILS % (AUTO) 3.4 % (0-6); HEMATOCRIT 41.1 % (35.0-45.0); HEMOGLOBIN 13.5 g/dl (12.0-16.0); LYMPHOCYTES # (AUTO) 1.7 X10'3 (1.1-4.8); LYMPHOCYTES % (AUTO) 19.6 % (21-51); MEAN CORPUSCULAR HEMOGLOBIN 29.6 PG (27.0-31.0); MEAN CORPUSCULAR HGB CONC 32.9 g/dL (33.0-36.5); MEAN CORPUSCULAR VOLUME 89.8 FL (78-98); MEAN PLATELET VOLUME 9.4 FL (7.4-10.4); MONOCYTES # (AUTO) 0.8 X10'3 (0-0.9); MONOCYTES % (AUTO) 8.9 % (2-12); NEUTROPHILS # (AUTO) 5.7 X10'3 (1.8-7.7); NEUTROPHILS % (AUTO) 67.4 % (42-75); PLATELET COUNT 251 X10'3 (140-440); RED BLOOD COUNT 4.57 X10'6 (4.20-5.60); RED CELL DISTRIBUTION WIDTH 13.6 % (11.5-14.5); WHITE BLOOD COUNT 8.5 X10'3 (4.5-11.0)
[2022-12-07 04:58] LABS: ALANINE AMINOTRANSFERASE 17 U/L (12-78); ALBUMIN 2.8 G/DL (3.4-5.0); ALKALINE PHOSPHATASE 83 IU/L (46-116); ANION GAP 4 (8-16); ASPARTATE AMINO TRANSFERASE 17 U/L (10-37); BILIRUBIN,TOTAL 0.8 MG/DL (0.1-1.0); BLOOD UREA NITROGEN 46 MG/DL (7-18); BUN/CREATININE RATIO 38.3 (6.6-38.0); CALCIUM 9.1 MG/DL (8.5-10.1); CHLORIDE 105 MMOL/L (99-107); GLUCOSE 142 MG/DL (70-104); MAGNESIUM 1.8 MG/DL (1.5-2.4); PHOSPHORUS 2.7 MG/DL (2.3-4.5); POTASSIUM 3.7 MMOL/L (3.5-5.1); SODIUM 140 MMOL/L (135-145); TOTAL CARBON DIOXIDE 31.4 MMOL/L (24-32); TOTAL PROTEIN 5.7 G/DL (6.4-8.2); eGFR 46 ML/MIN
[2022-12-07] MEDS: hydrALAZINE 20mg/ml inj. IV PRN (05:50)
--- NOTE | 2022-12-07 06:29 | NUR ---
Problems reprioritized. Patient report given, questions answered & plan of care reviewed with AVELINA REEVES.
[2022-12-07 06:35] VITALS: BP 174/96
[2022-12-07] MEDS: K and/or MAG REPLACEMENT MC SCH (06:44)
[2022-12-07] MEDS ORDERED: amLODIPine 5mg tablet PO SCH (08:00)
[2022-12-07] MEDS: clopidogrel 75mg tablet PO SCH (08:12)
[2022-12-07] MEDS: atorvastatin 20mg tablet PO SCH (08:12)
[2022-12-07] MEDS: docusate sod 100mg capsule PO SCH (08:13)
[2022-12-07] MEDS: aspirin 81mg, enteric-coated 1 TAB TABLET.DR PO SCH (08:13)
[2022-12-07] MEDS: losartan 50mg tablet PO SCH (08:14)
[2022-12-07] MEDS: insulin Lispro (HumaLOG) vial - multi-dose SQ SCH ×2 (08:52→13:09)
[2022-12-07 10:51] VITALS: BP 169/84
[2022-12-07] MEDS ORDERED: LOSA50TA64 PO (15:08)
[2022-12-07] MEDS ORDERED: NOR5T PO (15:08)
--- NOTE | 2022-12-07 15:15 | NUR ---
I have tried to call Aditi, friend/mall plant caretaker for discharge but she is not answering message. I have left a brief message to call me back. If she calls me back I will talk to patient about potentially discharging tonight and if we need to provide a fww. Pt walked 200 ft w/fww. She needs some verbal direction because she is somewhat slow to respond to guidance but otherwise she did well. Dr Best has put in dc orders. I have messaged him to let him know i am unable to get ahold of caregiver at this time.
--- NOTE | 2022-12-07 16:48 | NUR ---
Pt caregiver Aditi has taken patient home. Patient did have incontinent BM on dc. IV taken out, patient and caregiver given extensive teaching on importance of having a pcp to follow patients blood sugar and blood pressure and cognitive changes that have, per aditi, been happening over the last few months. Pt slow at times to respond and find certain words but other times able to communicate fairly well. Aditi says this has been happening at home for quite a while.Tele taken off. Both aditi and patient state understanding that if there are any new concerns or further decline in condition to call 911 or come to nearest ER.
[2022-12-09] MEDS ORDERED: LOSA100T57 PO (17:30)
== END 2022-12-07 16:30 | disposition home health service (06) | DRG 689 ==
LOC: ER 17:08 → ED HOLD 21:46 → SUR 3N 21:47
PROVIDERS: ADMIT Family Medicine; ATTEND Family Medicine
DX: N39.0 Urinary tract infection, site not specified (principal); G93.41 Metabolic encephalopathy; I21.A1 Myocardial infarction type 2; N17.0 Acute kidney failure with tubular necrosis; E87.3 Alkalosis; E11.22 Type 2 diabetes mellitus with diabetic chronic kidney disease; E78.5 Hyperlipidemia, unspecified; E87.6 Hypokalemia; I12.9 Hypertensive chronic kidney disease with stage 1 through stage 4 chronic kidney disease, or unspecified chronic kidney disease; N18.9 Chronic kidney disease, unspecified; R29.6 Repeated falls; Z86.73 Personal history of transient ischemic attack (TIA), and cerebral infarction without residual deficits; Z88.2 Allergy status to sulfonamides
CPT/HCPCS: 36415; 36600; 70450; 71045; 80053; 81001; 82803; 82948; 83605; 83735; 84100; 84145; 84443; 84484; 85018; 85025; 85610; 85730; 87040; 87081; 87088; 92508; 92616; 93005; 96365; 97116; 97161; 97530; 99285; A4615; G0378; J0360; J0696; J1815; J3480; J7030; J7040

== ENCOUNTER 2022-12-08 15:35 | Inpatient (IN) | payer BC, MEDICAID ==
[~2022-12-08] VITALS: Ht 152.4 cm; Wt 100.9 kg
[~2022-12-08 15:35] MED LIST changes: -AMLO2.5T2 PO; -ASPI-280 PO; -ASPI-529 PO; +ATOR20TA PO; -ATOR20TA66 PO; -ATOR40TA PO; +CEPH500C2 PO; -HYDR12.55 PO; -LOSA25TA96 PO; +LOSA50TA64 PO; +NOR5T PO
[2022-12-08 15:57] LABS: BASOPHILS % (AUTO) 0.3 % (0-1); EOSINOPHILS # (AUTO) 0.1 X10'3 (0-0.9); EOSINOPHILS % (AUTO) 0.5 % (0-6); HEMATOCRIT 43.8 % (35.0-45.0); HEMOGLOBIN 14.4 g/dl (12.0-16.0); LYMPHOCYTES # (AUTO) 0.7 X10'3 (1.1-4.8); LYMPHOCYTES % (AUTO) 4.3 % (21-51); MEAN CORPUSCULAR HEMOGLOBIN 29.5 PG (27.0-31.0); MEAN CORPUSCULAR HGB CONC 32.8 g/dL (33.0-36.5); MEAN CORPUSCULAR VOLUME 89.8 FL (78-98); MEAN PLATELET VOLUME 8.9 FL (7.4-10.4); MONOCYTES # (AUTO) 0.8 X10'3 (0-0.9); MONOCYTES % (AUTO) 5.1 % (2-12); NEUTROPHILS # (AUTO) 13.8 X10'3 (1.8-7.7); NEUTROPHILS % (AUTO) 89.8 % (42-75); PLATELET COUNT 265 X10'3 (140-440); RED BLOOD COUNT 4.87 X10'6 (4.20-5.60); RED CELL DISTRIBUTION WIDTH 13.6 % (11.5-14.5); WHITE BLOOD COUNT 15.4 X10'3 (4.5-11.0)
[2022-12-08 16:25] LABS: ALANINE AMINOTRANSFERASE 20 U/L (12-78); ALBUMIN 3.2 G/DL (3.4-5.0); ALBUMIN/GLOBULIN RATIO 1.1 (1.1-1.5); ALKALINE PHOSPHATASE 89 IU/L (46-116); ANION GAP 12 (8-16); ASPARTATE AMINO TRANSFERASE 19 U/L (10-37); BILIRUBIN,TOTAL 1.1 MG/DL (0.1-1.0); BLOOD UREA NITROGEN 35 MG/DL (7-18); BUN/CREATININE RATIO 23.5 (6.6-38.0); CALCIUM 9.4 MG/DL (8.5-10.1); CHLORIDE 99 MMOL/L (99-107); CREATININE 1.49 MG/DL (0.40-0.90); GLUCOSE 306 MG/DL (70-104); POTASSIUM 4.4 MMOL/L (3.5-5.1); SODIUM 137 MMOL/L (135-145); TOTAL CARBON DIOXIDE 25.8 MMOL/L (24-32); TOTAL PROTEIN 6.1 G/DL (6.4-8.2); eGFR 36 ML/MIN
--- NOTE | 2022-12-09 08:46 | NUR ---
Meal tray requested for patient.
[2022-12-09] MEDS ORDERED: losartan 50mg tablet PO STA (10:54)
--- NOTE | 2022-12-09 13:33 | NUR ---
Patient has meal at bedside within reach.
--- NOTE | 2022-12-09 13:33 | NUR ---
Physical thereapy at bedside.
[2022-12-09] MEDS ORDERED: normal saline 1000ML IV soln IVB ONE (15:20)
--- NOTE | 2022-12-09 17:09 | NUR ---
Urine sent to lab.
[2022-12-09] MEDS ORDERED: morphine 2 MG/ML inj. syringe IV PRN ×2 (17:20)
[2022-12-09] MEDS ORDERED: magnesium hydroxide 30ml (MOM) UD suspension PO PRN (17:20)
[2022-12-09] MEDS ORDERED: ondansetron/PF 4mg/2ml inj IV PRN (17:20)
[2022-12-09] MEDS ORDERED: acetaminophen 325mg tablet PO PRN (17:20)
[2022-12-09] MEDS ORDERED: mag hydrox/Alum hydrox/simeth 30ml oral suspension PO PRN (17:20)
[2022-12-09] MEDS ORDERED: HYDROcodone/acetaminophen 5mg/325mg tablet PO PRN (17:20)
[2022-12-09] MEDS ORDERED: LOSA100T58 PO (17:30)
[2022-12-09] MEDS ORDERED: HYDR12.55 PO (17:30)
[2022-12-09] MEDS ORDERED: MESSAGE TO PHARMACY PO ONE (17:30)
[2022-12-09] MEDS ORDERED: DEXTROSE 15 GM of carb/4 tabs (each vial/BOTTLE has 4 tablets) PO PRN ×2 (17:30)
[2022-12-09] MEDS ORDERED: AMLO5TAB16 PO (17:30)
[2022-12-09] MEDS ORDERED: dextrose 50%-water 50ml dispensing syringe IV PRN ×2 (17:30)
[2022-12-09] MEDS ORDERED: glucagon, human recombinant 1mg kit SUBCUT PRN (17:30)
[2022-12-09] MEDS: losartan 50mg tablet PO SCH (17:37)
--- NOTE | 2022-12-09 17:42 | NUR ---
During medication administration patient was able to raise her right arm to her ear and scratch it for more than 5 seconds without my asking her to do so. When asked to raise her right arm to take her PO medication she raised her arm slowly and was not able to raise it to her mouth.
[2022-12-09 17:44] LABS: CLARITY,URINE SLIGHTLY CLOUDY (Clear); COLOR,URINE YELLOW (Yellow); GLUCOSE, URINE >=1000 mg/dl (Neg); KETONES,URINE 15 mg/dl (Neg); LEUKOCYTE ESTERASE ,URINE NEGATIVE (Neg); NITRITES, URINE NEGATIVE (Neg); OCCULT BLOOD,URINE NEGATIVE (Neg); PH,URINE 6.5 (4.8-8.0); PROTEIN,URINE TRACE mg/dl (Neg); UROBILINOGEN,URINE 0.2 E.U/dL (0.2-1.0)
[2022-12-09 17:45] LABS: UA COLLECTION TYPE STRAIGHT CATH
--- NOTE | 2022-12-09 17:49 | NUR ---
Dr. Schilling made aware of patients unilateral weakness when he came on shift. Patient to be admitted. Case management involved in patients care.
[2022-12-09 17:54] LABS: BACTERIA,URINE FEW /HPF (Neg); MUCUS STRANDS FEW /LPF (Neg); RBC,URINE 0-2 /HPF (0-2); SQUAMOUS EPITHELIAL CELL,UR MODERATE /LPF (FEW); WBC,URINE 0-4 /HPF (0-4); YEAST MANY /HPF (NEGATIVE)
--- NOTE | 2022-12-09 18:29 | NUR ---
Patient endorsed to Shiv ivy
[2022-12-09 19:30] LABS: BASOPHILS % (AUTO) 0.2 % (0-1); EOSINOPHILS # (AUTO) 0.1 X10'3 (0-0.9); EOSINOPHILS % (AUTO) 1.3 % (0-6); HEMATOCRIT 44.4 % (35.0-45.0); HEMOGLOBIN 14.5 g/dl (12.0-16.0); LYMPHOCYTES # (AUTO) 1.4 X10'3 (1.1-4.8); LYMPHOCYTES % (AUTO) 13.3 % (21-51); MEAN CORPUSCULAR HEMOGLOBIN 29.4 PG (27.0-31.0); MEAN CORPUSCULAR HGB CONC 32.7 g/dL (33.0-36.5); MEAN CORPUSCULAR VOLUME 89.8 FL (78-98); MEAN PLATELET VOLUME 8.9 FL (7.4-10.4); MONOCYTES # (AUTO) 1.1 X10'3 (0-0.9); MONOCYTES % (AUTO) 10.7 % (2-12); NEUTROPHILS # (AUTO) 7.9 X10'3 (1.8-7.7); NEUTROPHILS % (AUTO) 74.5 % (42-75); PLATELET COUNT 234 X10'3 (140-440); RED BLOOD COUNT 4.95 X10'6 (4.20-5.60); RED CELL DISTRIBUTION WIDTH 13.5 % (11.5-14.5); WHITE BLOOD COUNT 10.6 X10'3 (4.5-11.0)
[2022-12-09 19:45] LABS: ALANINE AMINOTRANSFERASE 21 U/L (12-78); ALBUMIN/GLOBULIN RATIO 0.9 (1.1-1.5); ALKALINE PHOSPHATASE 88 IU/L (46-116); ANION GAP 6 (8-16); ASPARTATE AMINO TRANSFERASE 18 U/L (10-37); BLOOD UREA NITROGEN 22 MG/DL (7-18); BUN/CREATININE RATIO 24.4 (6.6-38.0); CHLORIDE 103 MMOL/L (99-107); GLUCOSE 143 MG/DL (70-104); POTASSIUM 3.6 MMOL/L (3.5-5.1); SODIUM 139 MMOL/L (135-145); TOTAL CARBON DIOXIDE 29.7 MMOL/L (24-32); TOTAL PROTEIN 6.3 G/DL (6.4-8.2); eGFR 64 ML/MIN
--- NOTE | 2022-12-09 19:49 | NUR ---
pt placed on inpatient bed. food tray provided
[2022-12-09] MEDS: docusate sod 100mg capsule PO SCH (20:00)
[2022-12-09] MEDS: insulin glargine (Lantus) pen - multi-dose SQ SCH (21:00)
[2022-12-09] MEDS ORDERED: amLODIPine 5mg tablet PO ONE (22:15)
--- NOTE | 2022-12-09 22:18 | NUR ---
HOSPITALIST PAGED STATUS UPDATE PT BP ABOVE 200 . ORDER 5MG NORVASC.
[2022-12-09] MEDS: furosemide 20 MG/2 ML vial IV SCH (22:53)
[2022-12-10] VITALS (9 sets, daily range): BP systolic 142–186; BP diastolic 77–95
--- NOTE | 2022-12-10 01:18 | NUR ---
report called to floor nurse. tx to room 349
--- NOTE | 2022-12-10 01:18 | NUR ---
Received report from ELECTRICAL CONTACTS ADJUSTERLEANDRO Chaney. Patient to follow shortly on a hospital bed.
--- NOTE | 2022-12-10 01:30 | NUR ---
Patient arrived to floor at 0130. Alert but not very talkative. Alert to her name, couldn;t say her date of or wear she is. Settled in and VS taken , 2 RN skin check completed and MRSA swab taken.
--- NOTE | 2022-12-10 04:17 | NUR ---
Recheck on patients BP = very high at 189/106/75, 190/96 manual. New order for 1 time dose of norvasc 5mg po now.
[2022-12-10] MEDS ORDERED: amLODIPine 5mg tablet PO ONE (04:20)
--- NOTE | 2022-12-10 05:54 | NUR ---
Recheck on BP was 186/85 . order to give the jacquelyn borges.
[2022-12-10] MEDS: losartan 50mg tablet PO SCH ×2 (05:58→10:01)
--- NOTE | 2022-12-10 06:35 | NUR ---
Problems reprioritized. Patient report given, questions answered & plan of care reviewed with Andi REEVES.
--- NOTE | 2022-12-10 06:40 | NUR ---
Patient in room [facility] 349. I have received report from LEANDRO Palafox and had the opportunity to ask questions and assume patient care.
[2022-12-10 06:43] LABS: BASOPHILS % (AUTO) 0.4 % (0-1); EOSINOPHILS # (AUTO) 0.2 X10'3 (0-0.9); EOSINOPHILS % (AUTO) 2.4 % (0-6); HEMATOCRIT 46.7 % (35.0-45.0); HEMOGLOBIN 15.3 g/dl (12.0-16.0); LYMPHOCYTES # (AUTO) 1.3 X10'3 (1.1-4.8); LYMPHOCYTES % (AUTO) 13.2 % (21-51); MEAN CORPUSCULAR HEMOGLOBIN 29.5 PG (27.0-31.0); MEAN CORPUSCULAR HGB CONC 32.9 g/dL (33.0-36.5); MEAN CORPUSCULAR VOLUME 89.7 FL (78-98); MEAN PLATELET VOLUME 9.1 FL (7.4-10.4); MONOCYTES # (AUTO) 0.8 X10'3 (0-0.9); MONOCYTES % (AUTO) 8.9 % (2-12); NEUTROPHILS # (AUTO) 7.2 X10'3 (1.8-7.7); NEUTROPHILS % (AUTO) 75.1 % (42-75); PLATELET COUNT 251 X10'3 (140-440); RED CELL DISTRIBUTION WIDTH 13.5 % (11.5-14.5); WHITE BLOOD COUNT 9.5 X10'3 (4.5-11.0)
[2022-12-10 06:50] LABS: ALBUMIN 3.2 G/DL (3.4-5.0); ANION GAP 10 (8-16); BLOOD UREA NITROGEN 20 MG/DL (7-18); BUN/CREATININE RATIO 21.7 (6.6-38.0); CALCIUM 9.3 MG/DL (8.5-10.1); CHLORIDE 101 MMOL/L (99-107); CREATININE 0.92 MG/DL (0.40-0.90); GLUCOSE 146 MG/DL (70-104); POTASSIUM 3.2 MMOL/L (3.5-5.1); SODIUM 139 MMOL/L (135-145); TOTAL CARBON DIOXIDE 28.3 MMOL/L (24-32); eGFR 62 ML/MIN
--- NOTE | 2022-12-10 07:17 | NUR ---
PAGER ID: [phone] MESSAGE: 349A- Kaitlyn Benitez is 3.2 and receiving lasix 20 BID. Ok to add K replacement protocol? Andi 5186
[2022-12-10] MEDS: docusate sod 100mg capsule PO SCH ×2 (07:21→20:00)
[2022-12-10] MEDS: enoxaparin 40mg/0.4ml syringe SUBCUT SCH (07:21)
[2022-12-10] MEDS ORDERED: potassium Cl 20 mEq SR tablet PO STA (08:23)
[2022-12-10] MEDS: furosemide 20 MG/2 ML vial IV SCH ×2 (08:57→20:00)
--- NOTE | 2022-12-10 10:14 | NUR ---
PAGER ID: [phone] MESSAGE: 349A-Aimee Benitez- pt received her AM cozaar 100mg early at 0558 due to elevated BP. Another dose is ordered now. Please clarify if you would like her to have another dose or duplicate order?- Andi 2046
[2022-12-10] MEDS: HYDROchlorothiazide 12.5mg capsule PO SCH (10:41)
--- NOTE | 2022-12-10 12:40 | NUR ---
PAGER ID: [phone] MESSAGE: Max- Aimee Benitez- BP is 174/95 HR 79. Received Cozaar 100mg daily and lasix 20 PO BID, microzide 12.5mg daily at 1041. Norvasc 5mg PO BID to start at 2000. ANy new orders? - Alicia 1541
[2022-12-10] MEDS: amLODIPine 5mg tablet PO SCH (13:18)
--- NOTE | 2022-12-10 13:42 | NUR ---
DM Consult: Pt A1C 11.4% recent 11/21/22 admit seen by CHRISSY at that time for DM diet ed. Addendum: 12/10/22 at [address] Amended: Links added. Addendum: 12/10/22 at [address] *CORRECTION* Noted pt A1C 11.4% recent 11/21/22 admit seen by CHRISSY at that time for DM diet ed.
--- NOTE | 2022-12-10 17:04 | NUR ---
PAGER ID: [phone] MESSAGE: 349A-Emmanuel, Yu- UA culture indicated. Not on abx. Do you want abx ordered?- Andi 0497
--- NOTE | 2022-12-10 18:23 | NUR ---
Problems reprioritized. Patient report given, questions answered & plan of care reviewed with LEANDRO Palafox.
--- NOTE | 2022-12-10 18:35 | NUR ---
Patient in room [facility] 349. I have received report from Andi REEVES and had the opportunity to ask questions and assume patient care.
[2022-12-10] MEDS: insulin Lispro (HumaLOG) vial - multi-dose SQ SCH (19:49)
[2022-12-10] MEDS ORDERED: amLODIPine 5mg tablet PO SCH (20:00)
[2022-12-10] MEDS: insulin glargine (Lantus) pen - multi-dose SQ SCH (21:00)
[2022-12-10] MEDS: atorvastatin 20mg tablet PO SCH (22:12)
--- NOTE | 2022-12-10 22:33 | NUR ---
PER md, HOLD THE LANGeremiasUS TONIGHT PT. HAS ONLY JUST MET PROTOCOL AT DINNER TIME AND WAS GIVEN 5 UNITS THEN. Pt. has altered mentation, and does not know ss of low blood sugar.
[2022-12-11 06:00] VITALS: BP 151/67
[2022-12-11 06:40] LABS: BASOPHILS % (AUTO) 0.4 % (0-1); EOSINOPHILS # (AUTO) 0.2 X10'3 (0-0.9); EOSINOPHILS % (AUTO) 2.5 % (0-6); HEMATOCRIT 42.2 % (35.0-45.0); HEMOGLOBIN 13.9 g/dl (12.0-16.0); LYMPHOCYTES # (AUTO) 1.6 X10'3 (1.1-4.8); LYMPHOCYTES % (AUTO) 16.2 % (21-51); MEAN CORPUSCULAR HEMOGLOBIN 29.3 PG (27.0-31.0); MEAN CORPUSCULAR HGB CONC 32.8 g/dL (33.0-36.5); MEAN CORPUSCULAR VOLUME 89.2 FL (78-98); MEAN PLATELET VOLUME 9.3 FL (7.4-10.4); MONOCYTES % (AUTO) 9.8 % (2-12); NEUTROPHILS # (AUTO) 6.9 X10'3 (1.8-7.7); NEUTROPHILS % (AUTO) 71.1 % (42-75); PLATELET COUNT 278 X10'3 (140-440); RED BLOOD COUNT 4.73 X10'6 (4.20-5.60); RED CELL DISTRIBUTION WIDTH 13.4 % (11.5-14.5); WHITE BLOOD COUNT 9.8 X10'3 (4.5-11.0)
--- NOTE | 2022-12-11 06:40 | NUR ---
Problems reprioritized. Patient report given, questions answered & plan of care reviewed with Prema REEVES.
--- NOTE | 2022-12-11 06:40 | NUR ---
Patient in room [facility] 349. I have received report from Vivienne REEVES and had the opportunity to ask questions and assume patient care.
[2022-12-11 06:42] LABS: ANION GAP 6 (8-16); BLOOD UREA NITROGEN 28 MG/DL (7-18); BUN/CREATININE RATIO 19.9 (6.6-38.0); CALCIUM 9.2 MG/DL (8.5-10.1); CHLORIDE 100 MMOL/L (99-107); CREATININE 1.41 MG/DL (0.40-0.90); GLUCOSE 151 MG/DL (70-104); SODIUM 139 MMOL/L (135-145); TOTAL CARBON DIOXIDE 32.8 MMOL/L (24-32); eGFR 38 ML/MIN
[2022-12-11] MEDS: docusate sod 100mg capsule PO SCH ×2 (08:00→19:38)
[2022-12-11] MEDS: losartan 50mg tablet PO SCH (08:00)
[2022-12-11 10:00] VITALS: BP 156/78
[2022-12-11] MEDS: furosemide 20 MG/2 ML vial IV SCH ×2 (10:01→19:26)
[2022-12-11] MEDS: clopidogrel 75mg tablet PO SCH (10:02)
[2022-12-11] MEDS: amLODIPine 5mg tablet PO SCH (10:02)
[2022-12-11] MEDS: enoxaparin 40mg/0.4ml syringe SUBCUT SCH (10:02)
[2022-12-11] MEDS: HYDROchlorothiazide 12.5mg capsule PO SCH (10:03)
[2022-12-11] MEDS ORDERED: POTASSIUM BICARB 20meq eff tab 20 MEQ TABLET.EFF PO ONE (10:55)
[2022-12-11] MEDS: insulin Lispro (HumaLOG) vial - multi-dose SQ SCH (12:49)
[2022-12-11] MEDS ORDERED: POTASSIUM BICARB 20meq eff tab 20 MEQ TABLET.EFF PO SCH (13:00)
[2022-12-11 18:00] VITALS: BP 165/82
[2022-12-11] MEDS: atorvastatin 20mg tablet PO SCH (20:40)
--- NOTE | 2022-12-11 21:08 | NUR ---
PAGER ID: [phone] MESSAGE: Aimee Benitez #349A- Pt met protocol, barely eating, GFR 38 from (62). Do you want me to start her on 6 units of lantus instead of 12 or HOLD it? She is a brittle diabetic. Thank you Prema Taylor [phone]
[2022-12-11] MEDS: insulin glargine (Lantus) pen - multi-dose SQ SCH (21:17)
[2022-12-11 22:00] VITALS: BP 146/84
[2022-12-12 06:00] VITALS: BP 137/80
[2022-12-12 06:42] LABS: BASOPHILS # (AUTO) 0.1 X10'3 (0-0.2); BASOPHILS % (AUTO) 0.7 % (0-1); EOSINOPHILS # (AUTO) 0.3 X10'3 (0-0.9); EOSINOPHILS % (AUTO) 3.3 % (0-6); HEMATOCRIT 42.2 % (35.0-45.0); HEMOGLOBIN 14.3 g/dl (12.0-16.0); LYMPHOCYTES # (AUTO) 1.2 X10'3 (1.1-4.8); LYMPHOCYTES % (AUTO) 13.3 % (21-51); MEAN CORPUSCULAR HEMOGLOBIN 30.1 PG (27.0-31.0); MEAN CORPUSCULAR HGB CONC 33.9 g/dL (33.0-36.5); MEAN CORPUSCULAR VOLUME 88.9 FL (78-98); MEAN PLATELET VOLUME 9.2 FL (7.4-10.4); MONOCYTES # (AUTO) 0.9 X10'3 (0-0.9); MONOCYTES % (AUTO) 9.2 % (2-12); NEUTROPHILS # (AUTO) 6.8 X10'3 (1.8-7.7); NEUTROPHILS % (AUTO) 73.5 % (42-75); PLATELET COUNT 244 X10'3 (140-440); RED BLOOD COUNT 4.74 X10'6 (4.20-5.60); RED CELL DISTRIBUTION WIDTH 13.3 % (11.5-14.5); WHITE BLOOD COUNT 9.3 X10'3 (4.5-11.0)
--- NOTE | 2022-12-12 06:46 | NUR ---
Problems reprioritized. Patient report given, questions answered & plan of care reviewed with Naomie REEVES Traveler.
[2022-12-12 07:20] LABS: ALBUMIN 2.8 G/DL (3.4-5.0); ANION GAP 8 (8-16); BLOOD UREA NITROGEN 33 MG/DL (7-18); CALCIUM 9.3 MG/DL (8.5-10.1); CHLORIDE 98 MMOL/L (99-107); CREATININE 1.27 MG/DL (0.40-0.90); GLUCOSE 141 MG/DL (70-104); SODIUM 137 MMOL/L (135-145); TOTAL CARBON DIOXIDE 31.2 MMOL/L (24-32); eGFR 43 ML/MIN
[2022-12-12] MEDS ORDERED: potassium Cl 20 mEq SR tablet PO STA (08:53)
--- NOTE | 2022-12-12 09:00 | NUR ---
Dr Black verballly notified of K+ 3.0. Orders entered
[2022-12-12] MEDS: heparin, porcine 5000 units/ml vial SQ SCH ×2 (09:10→20:59)
[2022-12-12] MEDS: amLODIPine 5mg tablet PO SCH (09:11)
[2022-12-12] MEDS: losartan 50mg tablet PO SCH (09:11)
[2022-12-12] MEDS: clopidogrel 75mg tablet PO SCH (09:11)
[2022-12-12] MEDS: furosemide 20 MG/2 ML vial IV SCH ×2 (09:16→21:03)
--- NOTE | 2022-12-12 09:34 | NUR ---
DM Consult: Addressed; see prior RD note. Addendum: 12/12/22 at [address] Amended: Links added.
[2022-12-12] MEDS: insulin Lispro (HumaLOG) vial - multi-dose SQ SCH ×3 (10:17→18:53)
--- NOTE | 2022-12-12 10:17 | NUR ---
pt5
--- NOTE | 2022-12-12 10:17 | NUR ---
pt began vomiting after last bite of medications administered. Small emesis with meds, not notable. Zofran given. No insulin given, RN to follow later after rest of breakfast finished. Addendum: 12/12/22 at 1104 by Naomie Samuel RN Attempted to feed breakfast, pt refused
[2022-12-12 12:00] VITALS: BP 136/81
--- NOTE | 2022-12-12 15:19 | NUR ---
Encouraged PO intake. Pt does not express interest
[2022-12-12 16:00] VITALS: BP 135/80
[2022-12-12 18:00] VITALS: BP 142/70
--- NOTE | 2022-12-12 18:34 | NUR ---
Patient in room [facility] 349. I have received report from [place] and had the opportunity to ask questions and assume patient care.
[2022-12-12] MEDS: insulin glargine (Lantus) pen - multi-dose SQ SCH (20:56)
[2022-12-12] MEDS: atorvastatin 20mg tablet PO SCH (21:14)
[2022-12-12 22:00] VITALS: BP 133/78
[2022-12-13 06:00] VITALS: BP 138/89
--- NOTE | 2022-12-13 06:00 | NUR ---
report received from Cherelle REEVES
--- NOTE | 2022-12-13 06:51 | NUR ---
Problems reprioritized. Patient report given, questions answered & plan of care reviewed with Eboni.
[2022-12-13 07:03] LABS: BASOPHILS # (AUTO) 0.1 X10'3 (0-0.2); BASOPHILS % (AUTO) 0.7 % (0-1); EOSINOPHILS # (AUTO) 0.2 X10'3 (0-0.9); EOSINOPHILS % (AUTO) 2.4 % (0-6); HEMATOCRIT 41.7 % (35.0-45.0); HEMOGLOBIN 13.8 g/dl (12.0-16.0); LYMPHOCYTES # (AUTO) 1.3 X10'3 (1.1-4.8); LYMPHOCYTES % (AUTO) 13.5 % (21-51); MEAN CORPUSCULAR HEMOGLOBIN 29.4 PG (27.0-31.0); MEAN CORPUSCULAR HGB CONC 33.1 g/dL (33.0-36.5); MEAN CORPUSCULAR VOLUME 88.7 FL (78-98); MEAN PLATELET VOLUME 9.2 FL (7.4-10.4); MONOCYTES % (AUTO) 10.6 % (2-12); NEUTROPHILS # (AUTO) 7.1 X10'3 (1.8-7.7); NEUTROPHILS % (AUTO) 72.8 % (42-75); PLATELET COUNT 281 X10'3 (140-440); RED CELL DISTRIBUTION WIDTH 13.6 % (11.5-14.5); WHITE BLOOD COUNT 9.7 X10'3 (4.5-11.0)
[2022-12-13 07:46] LABS: ANION GAP 8 (8-16); BLOOD UREA NITROGEN 43 MG/DL (7-18); BUN/CREATININE RATIO 25.1 (6.6-38.0); CALCIUM 9.5 MG/DL (8.5-10.1); CHLORIDE 97 MMOL/L (99-107); CREATININE 1.71 MG/DL (0.40-0.90); GLUCOSE 131 MG/DL (70-104); POTASSIUM 3.3 MMOL/L (3.5-5.1); SODIUM 138 MMOL/L (135-145); TOTAL CARBON DIOXIDE 33.4 MMOL/L (24-32); eGFR 31 ML/MIN
[2022-12-13] MEDS: insulin Lispro (HumaLOG) vial - multi-dose SQ SCH ×3 (09:11→20:36)
[2022-12-13] MEDS: heparin, porcine 5000 units/ml vial SQ SCH ×2 (09:33→21:52)
[2022-12-13] MEDS: amLODIPine 5mg tablet PO SCH (09:36)
[2022-12-13] MEDS: clopidogrel 75mg tablet PO SCH (09:36)
[2022-12-13] MEDS: losartan 50mg tablet PO SCH (09:36)
[2022-12-13] MEDS: normal saline 1000ml 1,000 ML IV SCH (09:56)
[2022-12-13 11:17] VITALS: BP_SYST 148; BP_SYST 156; BP_DIAS 81; BP_DIAS 86
--- NOTE | 2022-12-13 11:34 | NUR ---
PRESSURE ULCER EDUCATION: DEFINITION: A pressure ulcer is an area of skin that breaks down when you stay in one position too long. The constant pressure against the skin reduces the blood flow to that area and the affected tissue dies. CAUSES: "Being bedridden or in a wheelchair "Fragile skin "Having a chronic condition, such as diabetes or vascular disease "Inability to move certain parts of your body without assistance "Older age "Incontinence of urine or stool SYMPTOMS: "A reddened area that DOES NOT turn white when pressed on - this can be the beginning of a pressure ulcer "A blister, deep sore or a crater - these can be advanced pressure ulcers FIRST AID: "Relieve the pressure on this area "Keep the area clean and dry "Call your primary doctor if you see any of the above symptoms "DO NOT massage the area "DO NOT use a donut shaped or ring shaped pillow- these actually interfere with the blood flow and cause complications PREVENTION: "Check for pressure ulcers everyday "Change position at least every two hours to relieve pressure "Use items that help relieve pressure- pillows, sheepskin, foam padding, and powders. "Keep skin clean and dry "Eat healthy well balanced meals "Exercise daily IF YOU SEE ANY OF THESE SYMPTOMS WHILE IN THE HOSPITAL - TELL YOUR NURSE IMMEDIATELY. IF YOU SEE ANY OF THESE SYMPTOMS WHILE AT HOME OR HAVE ANY QUESTIONS OR CONCERNS ABOUT PRESSURE ULCERS - CALL YOUR PRIMARY DOCTOR IMMEDIATELY. Addendum: 12/13/22 at 1135 by Kirstin Johnson LVN Amended: Links added.
[2022-12-13] MEDS: insulin glargine (Lantus) pen - multi-dose SQ SCH (21:49)
[2022-12-13] MEDS: atorvastatin 20mg tablet PO SCH (21:51)
[2022-12-13] MEDS: nystatin 15 GM powder TP SCH (21:51)
[2022-12-14 05:00] VITALS: BP 178/88
[2022-12-14] MEDS: normal saline 1000ml 1,000 ML IV SCH (05:55)
[2022-12-14 06:36] LABS: BASOPHILS # (AUTO) 0.1 X10'3 (0-0.2); BASOPHILS % (AUTO) 0.7 % (0-1); EOSINOPHILS # (AUTO) 0.3 X10'3 (0-0.9); HEMATOCRIT 41.3 % (35.0-45.0); HEMOGLOBIN 13.4 g/dl (12.0-16.0); LYMPHOCYTES # (AUTO) 1.2 X10'3 (1.1-4.8); LYMPHOCYTES % (AUTO) 14.3 % (21-51); MEAN CORPUSCULAR HEMOGLOBIN 28.8 PG (27.0-31.0); MEAN CORPUSCULAR HGB CONC 32.5 g/dL (33.0-36.5); MEAN CORPUSCULAR VOLUME 88.8 FL (78-98); MEAN PLATELET VOLUME 9.2 FL (7.4-10.4); MONOCYTES # (AUTO) 0.9 X10'3 (0-0.9); MONOCYTES % (AUTO) 10.1 % (2-12); NEUTROPHILS # (AUTO) 6.1 X10'3 (1.8-7.7); NEUTROPHILS % (AUTO) 71.9 % (42-75); PLATELET COUNT 277 X10'3 (140-440); RED BLOOD COUNT 4.65 X10'6 (4.20-5.60); RED CELL DISTRIBUTION WIDTH 13.6 % (11.5-14.5); WHITE BLOOD COUNT 8.5 X10'3 (4.5-11.0)
[2022-12-14 06:49] LABS: ALBUMIN 2.8 G/DL (3.4-5.0); ANION GAP 8 (8-16); BLOOD UREA NITROGEN 46 MG/DL (7-18); BUN/CREATININE RATIO 33.1 (6.6-38.0); CALCIUM 9.3 MG/DL (8.5-10.1); CHLORIDE 101 MMOL/L (99-107); CREATININE 1.39 MG/DL (0.40-0.90); GLUCOSE 148 MG/DL (70-104); POTASSIUM 3.4 MMOL/L (3.5-5.1); SODIUM 142 MMOL/L (135-145); TOTAL CARBON DIOXIDE 33.5 MMOL/L (24-32); eGFR 39 ML/MIN
[2022-12-14 09:38] VITALS: BP 137/87
[2022-12-14] MEDS: insulin Lispro (HumaLOG) vial - multi-dose SQ SCH (09:51)
[2022-12-14] MEDS: heparin, porcine 5000 units/ml vial SQ SCH ×2 (09:53→20:55)
[2022-12-14] MEDS: nystatin 15 GM powder TP SCH ×2 (09:55→20:56)
[2022-12-14] MEDS: losartan 50mg tablet PO SCH (09:56)
[2022-12-14] MEDS: clopidogrel 75mg tablet PO SCH (09:57)
[2022-12-14] MEDS: amLODIPine 5mg tablet PO SCH (09:57)
[2022-12-14 10:00] VITALS: BP 164/66
[2022-12-14] MEDS ORDERED: potassium Cl 40MEQ/1/2NS 520ml 520 ML IV ONE (10:45)
--- NOTE | 2022-12-14 11:29 | NUR ---
Initial: Pt admit for generalized weakness. Per EMR pt A/O x 3 and confused, receiving total assist with meals however eating poorly with mostly 0-25% PO intake of meals, though pt is documented with average 63% PO intake of dinner 12/13. Pt on an MM5 diet with thin liquids per ST recs. Recommend discontinuing heart healthy and CHO controlled restriction to diet order in view of poor PO intake. Message left for RN with recommendation for NGT placement for EN given poor PO intake throughout LOS. Noted pt with a low Fabian of 11, skin is intact per WOC note. LBM 2/10 per I&O. Will continue to follow closely. Recommendations: 1) Continue MM5 diet with thin liquids per ST recs; discontinue heart healthy and CHO controlled diet restriction in view of poor PO intake 2) Encourage PO intake; total assist with meals 3) Consider NGT placement for EN if within POC; IF EN continuous Glucerna 1.2 with 55 mL/hr goal rate 4) Routine bowel care 5) Weekly scaled weights Addendum: 12/14/22 at [address] Amended: Links added.
[2022-12-14 18:00] VITALS: BP 143/81
--- NOTE | 2022-12-14 19:02 | NUR ---
Report given to Supriya Epps RN, all questions answered at this time.
--- NOTE | 2022-12-14 19:03 | NUR ---
Patient in room [facility] 349. I have received report from AVELINA REEVES and had the opportunity to ask questions and assume patient care.
[2022-12-14] MEDS: atorvastatin 20mg tablet PO SCH (20:55)
[2022-12-14] MEDS: insulin glargine (Lantus) pen - multi-dose SQ SCH (21:11)
[2022-12-14 22:00] VITALS: BP 158/86
[2022-12-15] MEDS: normal saline 1000ml 1,000 ML IV SCH ×2 (04:42→23:18)
--- NOTE | 2022-12-15 06:35 | NUR ---
Problems reprioritized. Patient report given, questions answered & plan of care reviewed with TAMELA REEVES.
[2022-12-15 07:00] VITALS: BP 161/90
[2022-12-15] MEDS: amLODIPine 5mg tablet PO SCH (07:51)
[2022-12-15] MEDS: clopidogrel 75mg tablet PO SCH (07:51)
[2022-12-15] MEDS: heparin, porcine 5000 units/ml vial SQ SCH ×2 (07:51→19:21)
[2022-12-15] MEDS: nystatin 15 GM powder TP SCH ×2 (07:51→19:20)
[2022-12-15] MEDS: losartan 50mg tablet PO SCH (07:52)
--- NOTE | 2022-12-15 11:48 | NUR ---
Pt had 7gm CHO. CBG 112 this AM Not enough to warrant insulin coverage. RN to follow Addendum: 12/15/22 at 1321 by Naomie Samuel RN Nystatin powder applied under bilat breast folds and groin during morning med pass
[2022-12-15 12:00] VITALS: BP 167/90
--- NOTE | 2022-12-15 15:21 | NUR ---
Paged Dr Black: Emmanuel 349A. Pt not eating, FTT. K+ 3.4 today, no protocol ordered. Should we reassess code status or alternate nutrient source? Naomie 0170
[2022-12-15 18:00] VITALS: BP 169/90
[2022-12-15] MEDS: lisinopril 10 MG tablet PO SCH (19:21)
[2022-12-15] MEDS: insulin Lispro (HumaLOG) vial - multi-dose SQ SCH (19:23)
[2022-12-15] MEDS: atorvastatin 20mg tablet PO SCH ×2 (21:00→21:06)
[2022-12-15] MEDS: insulin glargine (Lantus) pen - multi-dose SQ SCH (21:06)
--- NOTE | 2022-12-15 21:10 | NUR ---
Attempt was made by student officer Virgie and this nurse to have patient take PO Lipitor as ordered, patient refused stating she just didn't want to take it. Patient request was honored at this time. Medication marked as refused by patient.
[2022-12-15 22:49] VITALS: BP 195/94
[2022-12-15] MEDS: cloNIDine 0.1 mg tablet PO PRN (23:27)
[2022-12-16] VITALS (8 sets, daily range): BP systolic 138–190; BP diastolic 67–91
--- NOTE | 2022-12-16 06:21 | NUR ---
Student documentation: I have reviewed and agree with all interventions, assessments performed and documented by Virgie Guevara Medication Administration: For this medication-pass time frame, all medication were reviewed, dispensed, administered and documented per hospital policy by Virgie Cheema
[2022-12-16] MEDS: clopidogrel 75mg tablet PO SCH (08:57)
[2022-12-16] MEDS: amLODIPine 5mg tablet PO SCH (08:57)
[2022-12-16] MEDS: heparin, porcine 5000 units/ml vial SQ SCH ×2 (08:58→20:12)
[2022-12-16] MEDS: lisinopril 10 MG tablet PO SCH ×2 (08:58→20:11)
[2022-12-16] MEDS: nystatin 15 GM powder TP SCH ×2 (09:07→20:12)
--- NOTE | 2022-12-16 10:08 | NUR ---
905: administering AM meds, SBP 170, HR 61, pt asymptomatic. Tele reported 21 beat vtach. Shannan REEVES notified Dr Black Addendum: 12/16/22 at 1057 by Naomie Samuel RN Verbally notified Dr Black and received verbal orders to d/c dana
--- NOTE | 2022-12-16 16:37 | NUR ---
Roommate and only family contact for pt is Aditi #[phone]. 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 Pt has been not interested in ADLs and apathetic for over a month. Aditi is not certain pt should be a full code. Answered all questions satisfactorily.
[2022-12-16] MEDS: normal saline 1000ml 1,000 ML IV SCH (17:40)
[2022-12-16] MEDS: atorvastatin 20mg tablet PO SCH (20:11)
[2022-12-16] MEDS: insulin glargine (Lantus) pen - multi-dose SQ SCH (21:00)
--- NOTE | 2022-12-17 01:40 | NUR ---
Patient in room [facility] 349. I have received report from Moe REEVES and had the opportunity to ask questions and assume patient care.
--- NOTE | 2022-12-17 01:41 | NUR ---
Problems reprioritized. Patient report given, questions answered & plan of care reviewed with BOBO. Addendum: 12/17/22 at 0141 by Nato Monroe RN Amended: Links added.
[2022-12-17 01:52] VITALS: BP 179/83
[2022-12-17] MEDS: cloNIDine 0.1 mg tablet PO PRN ×2 (01:53→14:00)
--- NOTE | 2022-12-17 02:00 | NUR ---
I have reviewed previous assessment and agree with findings.
[2022-12-17 06:00] VITALS: BP 129/68
--- NOTE | 2022-12-17 06:05 | NUR ---
Patient in room [facility] 349. I have received report from Vivienne REEVES and had the opportunity to ask questions and assume patient care.
[2022-12-17 06:10] LABS: ALBUMIN 2.4 G/DL (3.4-5.0); ANION GAP 6 (8-16); BLOOD UREA NITROGEN 25 MG/DL (7-18); BUN/CREATININE RATIO 32.5 (6.6-38.0); CALCIUM 8.8 MG/DL (8.5-10.1); CHLORIDE 106 MMOL/L (99-107); CREATININE 0.77 MG/DL (0.40-0.90); GLUCOSE 120 MG/DL (70-104); POTASSIUM 3.6 MMOL/L (3.5-5.1); SODIUM 139 MMOL/L (135-145); TOTAL CARBON DIOXIDE 26.6 MMOL/L (24-32); eGFR 77 ML/MIN
--- NOTE | 2022-12-17 06:30 | NUR ---
Problems reprioritized. Patient report given, questions answered & plan of care reviewed with Amanda ESCOBEDO.
[2022-12-17] MEDS: nystatin 15 GM powder TP SCH ×2 (08:00→20:27)
[2022-12-17] MEDS: clopidogrel 75mg tablet PO SCH (08:02)
[2022-12-17] MEDS: amLODIPine 5mg tablet PO SCH (08:02)
[2022-12-17] MEDS: lisinopril 10 MG tablet PO SCH ×2 (08:03→20:17)
[2022-12-17] MEDS: heparin, porcine 5000 units/ml vial SQ SCH ×2 (08:06→20:20)
[2022-12-17 11:00] VITALS: BP 180/83
--- NOTE | 2022-12-17 11:47 | NUR ---
F/u 12/17: Pt PO remains poor 0-25% vs refusing majority of meals now 8 days not meeting needs. PO 100% starch only WB no milk or protein intake this AM per RN; noted AOx4 in EMR though RN reports pt still w/ confusion. RD d/w RN and pagereinaldo SAMUEL recommends NG for supplemental EN to meet nutrition needs; TF recs below in case to start. Given prolonged inadequate intake 8 days, mild weakness, and BLE/BUE +1 edemas pt meets minimum non-severe malnutrition criteria; MD notified. IF no nutrition support pt would at least benefit from removal of carb controlled and heart healthy diet restrictions given poor intake. LBM 12/16. Will continue to follow. Recommendations: 1) Continue MM5 diet with thin liquids per ST recs; discontinue heart healthy and CHO controlled diet restriction in view of poor PO intake 2) Encourage PO intake; total assist with meals 3) Consider NGT placement for EN if within POC given malnutrition status w/ poor intake 8 days; IF EN continuous Glucerna 1.2 at 55 mL/hr goal rate would provide 1320ml volume/day, 1584 kcals, 1063ml water, and 79g protein 4) IF TF; additional free water 100ml Q4H; PALB Q / 5) Routine bowel care 6) Weekly scaled weights Addendum: 12/17/22 at [address] Amended: Links added.
--- NOTE | 2022-12-17 12:48 | NUR ---
verbally spoke with Dr. Black and he d/c fluids but wants to keep iv in place. nursing order was placed.
[2022-12-17 14:00] VITALS: BP 180/100
--- NOTE | 2022-12-17 17:30 | NUR ---
I have reviewed and agree with interventions, assessments and documentation by Radha Duarte LVN.
[2022-12-17 18:00] VITALS: BP 157/82
--- NOTE | 2022-12-17 18:13 | NUR ---
Problems reprioritized. Patient report given, questions answered & plan of care reviewed with Nikole REEVES.
[2022-12-17] MEDS: insulin Lispro (HumaLOG) vial - multi-dose SQ SCH (19:21)
[2022-12-17] MEDS: atorvastatin 20mg tablet PO SCH (20:17)
--- NOTE | 2022-12-17 20:57 | NUR ---
Pt. took two bites of her mashed potatoes, then refused the rest. Addendum: 12/17/22 at 2057 by Adele RIVERA Amended: Links added.
[2022-12-17] MEDS: insulin glargine (Lantus) pen - multi-dose SQ SCH (21:37)
[2022-12-17 22:00] VITALS: BP 140/66
--- NOTE | 2022-12-18 01:30 | NUR ---
GAVE REPORT TO LEANDRO BROUSSARD.
--- NOTE | 2022-12-18 01:30 | NUR ---
Patient in room [facility] 349. I have received report from Nikole Harrison and had the opportunity to ask questions and assume patient care.
--- NOTE | 2022-12-18 01:40 | NUR ---
I have reviewed previous assessment and agree with findings.
--- NOTE | 2022-12-18 06:40 | NUR ---
Problems reprioritized. Patient report given, questions answered & plan of care reviewed with Yolanda REEVES.
[2022-12-18] MEDS: nystatin 15 GM powder TP SCH ×2 (08:00→20:41)
[2022-12-18] MEDS: clopidogrel 75mg tablet PO SCH (09:12)
[2022-12-18] MEDS: amLODIPine 5mg tablet PO SCH (09:14)
[2022-12-18] MEDS: lisinopril 10 MG tablet PO SCH ×2 (09:14→20:34)
[2022-12-18] MEDS: heparin, porcine 5000 units/ml vial SQ SCH ×2 (09:16→20:36)
[2022-12-18 11:00] VITALS: BP 139/68
[2022-12-18] MEDS: insulin Lispro (HumaLOG) vial - multi-dose SQ SCH (13:58)
--- NOTE | 2022-12-18 18:25 | NUR ---
Problems reprioritized. Patient report given, questions answered & plan of care reviewed with NAT REEVES.
--- NOTE | 2022-12-18 18:25 | NUR ---
REport received from Yolanda REEVES.
[2022-12-18 18:48] VITALS: BP 159/83
[2022-12-18] MEDS: atorvastatin 20mg tablet PO SCH (20:34)
[2022-12-18] MEDS: insulin glargine (Lantus) pen - multi-dose SQ SCH (20:47)
--- NOTE | 2022-12-18 22:00 | NUR ---
Agree with student assessment with my exceptions.
--- NOTE | 2022-12-18 23:06 | NUR ---
Student Medication Administration: For this medication-pass time frame, all medication were reviewed, dispensed, administered and documented per hospital policy by Adele [facility]IN[facility].
--- NOTE | 2022-12-18 23:07 | NUR ---
Student documentation: I have reviewed interventions, assessments performed and documented by Adele [facility]IN[facility].
[2022-12-19 02:00] VITALS: BP 161/89
--- NOTE | 2022-12-19 06:35 | NUR ---
Report to Liudmila REEVES.
--- NOTE | 2022-12-19 06:53 | NUR ---
Patient in room [facility]. I have received report from LEANDRO Estrella and had the opportunity to ask questions and assume patient care.
[2022-12-19 07:27] VITALS: BP_SYST 75
[2022-12-19] MEDS: clopidogrel 75mg tablet PO SCH (08:53)
[2022-12-19] MEDS: lisinopril 10 MG tablet PO SCH ×2 (08:53→21:02)
[2022-12-19] MEDS: nystatin 15 GM powder TP SCH ×2 (08:54→21:06)
[2022-12-19] MEDS: heparin, porcine 5000 units/ml vial SQ SCH ×2 (08:54→21:02)
[2022-12-19] MEDS: amLODIPine 5mg tablet PO SCH (08:55)
[2022-12-19 11:04] LABS: BASOPHILS % (AUTO) 0.6 % (0-1); EOSINOPHILS # (AUTO) 0.2 X10'3 (0-0.9); EOSINOPHILS % (AUTO) 1.9 % (0-6); HEMATOCRIT 41.6 % (35.0-45.0); LYMPHOCYTES # (AUTO) 1.1 X10'3 (1.1-4.8); LYMPHOCYTES % (AUTO) 13.5 % (21-51); MEAN CORPUSCULAR HEMOGLOBIN 29.5 PG (27.0-31.0); MEAN CORPUSCULAR HGB CONC 33.6 g/dL (33.0-36.5); MEAN CORPUSCULAR VOLUME 87.9 FL (78-98); MEAN PLATELET VOLUME 8.4 FL (7.4-10.4); MONOCYTES # (AUTO) 0.7 X10'3 (0-0.9); MONOCYTES % (AUTO) 8.5 % (2-12); NEUTROPHILS # (AUTO) 6.1 X10'3 (1.8-7.7); NEUTROPHILS % (AUTO) 75.5 % (42-75); PLATELET COUNT 294 X10'3 (140-440); RED BLOOD COUNT 4.73 X10'6 (4.20-5.60); RED CELL DISTRIBUTION WIDTH 13.4 % (11.5-14.5); WHITE BLOOD COUNT 8.1 X10'3 (4.5-11.0)
[2022-12-19 11:19] LABS: ALANINE AMINOTRANSFERASE 32 U/L (12-78); ALBUMIN 2.6 G/DL (3.4-5.0); ALBUMIN/GLOBULIN RATIO 0.8 (1.1-1.5); ALKALINE PHOSPHATASE 109 IU/L (46-116); ANION GAP 6 (8-16); ASPARTATE AMINO TRANSFERASE 37 U/L (10-37); BILIRUBIN,TOTAL 0.9 MG/DL (0.1-1.0); BLOOD UREA NITROGEN 21 MG/DL (7-18); BUN/CREATININE RATIO 25.9 (6.6-38.0); CALCIUM 9.3 MG/DL (8.5-10.1); CHLORIDE 102 MMOL/L (99-107); CREATININE 0.81 MG/DL (0.40-0.90); GLUCOSE 114 MG/DL (70-104); POTASSIUM 3.8 MMOL/L (3.5-5.1); SODIUM 137 MMOL/L (135-145); TOTAL CARBON DIOXIDE 28.7 MMOL/L (24-32); eGFR 72 ML/MIN
--- NOTE | 2022-12-19 18:50 | NUR ---
Problems reprioritized. Patient report given, questions answered & plan of care reviewed with LEANDRO Anna.
[2022-12-19 20:00] VITALS: BP 166/92
[2022-12-19] MEDS: insulin glargine (Lantus) pen - multi-dose SQ SCH (21:00)
[2022-12-19] MEDS: atorvastatin 20mg tablet PO SCH (21:02)
[2022-12-19 22:00] VITALS: BP 147/84
[2022-12-20 06:00] VITALS: BP 135/86
--- NOTE | 2022-12-20 07:09 | NUR ---
Problems reprioritized. Patient report given, questions answered & plan of care reviewed with Juany REEVES.
[2022-12-20] MEDS: lisinopril 10 MG tablet PO SCH ×2 (08:26→19:12)
[2022-12-20] MEDS: amLODIPine 5mg tablet PO SCH (08:26)
[2022-12-20] MEDS: clopidogrel 75mg tablet PO SCH (08:26)
[2022-12-20] MEDS: heparin, porcine 5000 units/ml vial SQ SCH ×2 (08:27→19:13)
[2022-12-20] MEDS: nystatin 15 GM powder TP SCH ×2 (08:28→19:12)
[2022-12-20 10:00] VITALS: BP 161/80
--- NOTE | 2022-12-20 13:30 | NUR ---
Patient report given, questions answered & plan of care reviewed with Shannan Duarte RN.
--- NOTE | 2022-12-20 15:00 | NUR ---
Visitors at bedside. Pt demonstrating to them how she can mobilize her right hand/arm today. Pt smiling and actively participating in visit.
[2022-12-20 18:00] VITALS: BP 186/81
--- NOTE | 2022-12-20 18:22 | NUR ---
Patient in room [facility]. I have received report from BOOM REEVES and had the opportunity to ask questions and assume patient care.
[2022-12-20] MEDS: insulin glargine (Lantus) pen - multi-dose SQ SCH (21:00)
[2022-12-20 22:00] VITALS: BP 149/74
[2022-12-20] MEDS: atorvastatin 20mg tablet PO SCH (22:21)
--- NOTE | 2022-12-21 05:58 | NUR ---
Problems reprioritized. Patient report given, questions answered & plan of care reviewed with RONNIE REEVES.
--- NOTE | 2022-12-21 06:27 | NUR ---
Patient in room [facility]. I have received report from LEANDRO TENORIO and had the opportunity to ask questions and assume patient care.
[2022-12-21] MEDS: clopidogrel 75mg tablet PO SCH (08:10)
[2022-12-21] MEDS: amLODIPine 5mg tablet PO SCH (08:10)
[2022-12-21] MEDS: lisinopril 10 MG tablet PO SCH ×2 (08:10→21:02)
[2022-12-21] MEDS: heparin, porcine 5000 units/ml vial SQ SCH ×2 (08:11→21:01)
[2022-12-21] MEDS: nystatin 15 GM powder TP SCH ×2 (08:11→21:02)
[2022-12-21 08:21] VITALS: BP 165/90
[2022-12-21 11:01] VITALS: BP 158/57
--- NOTE | 2022-12-21 11:09 | NUR ---
Reassessment: Pt s/p f/u BSS with ST recs texture upgrade to EC7. PO intake fluctuates however overall remains poor. Since 12/18 pt with average 59% PO intake of 4 meals though has refused 4 meals, bringing overall average PO intake down to 30%, insufficient to meet estimated nutrient needs. Recommend Ensure Plus HP TID to optimize nutrient intake, to be sent pending physician approval in EMR. IF pt not accepting of ONS and/or PO intake of meals does not improve pt would benefit from NGT placement for supplemental EN. LBM 12/20. Will continue to follow closely. Recommendations: 1) Continue EC7 diet with thin liquids per ST recs; discontinue heart healthy and CHO controlled diet restriction in view of poor PO intake 2) Encourage PO intake; total assist with meals 3) Ensure Plus HP TID, pending physician approval in EMR 4) Consider NGT placement for EN if within POC given malnutrition status with poor intake 11 days; IF EN continuous Glucerna 1.2 at 55 mL/hr goal rate to provide 1320 ml volume/day, 1584 kcal, 1063 ml water, and 79 g protein 5) IF TF; additional 100 ml water flush Q4H; PALB Q / 6) Routine bowel care 7) Weekly scaled weights Addendum: 12/21/22 at [address] Amended: Links added.
[2022-12-21] MEDS: LACTOSE-REDUCED FOOD 237ML LIQUID PO SCH (13:00)
[2022-12-21 18:00] VITALS: BP 153/77
--- NOTE | 2022-12-21 18:19 | NUR ---
Problems reprioritized. Patient report given, questions answered & plan of care reviewed with LEANDRO King.
--- NOTE | 2022-12-21 18:34 | NUR ---
Patient in room [facility]. I have received report from RONNIE REEVES and had the opportunity to ask questions and assume patient care.
[2022-12-21] MEDS: insulin glargine (Lantus) pen - multi-dose SQ SCH (21:00)
[2022-12-21] MEDS: atorvastatin 20mg tablet PO SCH (21:01)
[2022-12-21 22:00] VITALS: BP 142/73
[2022-12-22 06:00] VITALS: BP 155/87
--- NOTE | 2022-12-22 06:23 | NUR ---
Problems reprioritized. Patient report given, questions answered & plan of care reviewed with BOOM REEVES.
[2022-12-22] MEDS: heparin, porcine 5000 units/ml vial SQ SCH ×2 (07:36→20:04)
[2022-12-22] MEDS: clopidogrel 75mg tablet PO SCH (07:37)
[2022-12-22] MEDS: amLODIPine 5mg tablet PO SCH (07:37)
[2022-12-22] MEDS: lisinopril 10 MG tablet PO SCH ×2 (07:37→20:03)
[2022-12-22] MEDS: nystatin 15 GM powder TP SCH ×2 (08:00→20:04)
[2022-12-22 10:42] VITALS: BP 154/83
[2022-12-22 18:00] VITALS: BP 176/84
--- NOTE | 2022-12-22 18:38 | NUR ---
Problems reprioritized. Patient report given, questions answered & plan of care reviewed with Vivienne REEVES.
--- NOTE | 2022-12-22 18:45 | NUR ---
Patient in room [facility]. I have received report from Shannan REEVES and had the opportunity to ask questions and assume patient care.
[2022-12-22] MEDS: atorvastatin 20mg tablet PO SCH (20:03)
[2022-12-22] MEDS: insulin glargine (Lantus) pen - multi-dose SQ SCH (21:00)
[2022-12-22 22:00] VITALS: BP 155/80
[2022-12-23] MEDS ORDERED: HALLS - SOOTHE MENTHOL 1.8 MG cough drop LOZENGE MM PRN (00:40)
--- NOTE | 2022-12-23 06:30 | NUR ---
Problems reprioritized. Patient report given, questions answered & plan of care reviewed with Patt monroe.
[2022-12-23 07:00] VITALS: BP 129/64
[2022-12-23] MEDS: nystatin 15 GM powder TP SCH ×2 (08:00→20:11)
[2022-12-23] MEDS: heparin, porcine 5000 units/ml vial SQ SCH ×2 (08:28→20:13)
[2022-12-23] MEDS: amLODIPine 5mg tablet PO SCH (08:28)
[2022-12-23] MEDS: clopidogrel 75mg tablet PO SCH (08:28)
[2022-12-23] MEDS: lisinopril 10 MG tablet PO SCH ×2 (08:28→20:07)
[2022-12-23] MEDS: LACTOSE-REDUCED FOOD 237ML LIQUID PO SCH ×2 (13:00→18:00)
[2022-12-23 17:14] VITALS: BP 146/89
[2022-12-23 18:00] VITALS: BP 141/75
--- NOTE | 2022-12-23 18:18 | NUR ---
Problems reprioritized. Patient report given, questions answered & plan of care reviewed with Vivienne REEVES.
--- NOTE | 2022-12-23 18:20 | NUR ---
Patient in room [facility]. I have received report from Shannan REEVES and had the opportunity to ask questions and assume patient care.
[2022-12-23] MEDS: atorvastatin 20mg tablet PO SCH (20:11)
[2022-12-23] MEDS: insulin glargine (Lantus) pen - multi-dose SQ SCH (21:00)
[2022-12-23] MEDS: cloNIDine 0.1 mg tablet PO PRN (21:59)
[2022-12-23 22:00] VITALS: BP 167/85
--- NOTE | 2022-12-24 06:37 | NUR ---
Problems reprioritized. Patient report given, questions answered & plan of care reviewed with Shannan REEVES.
[2022-12-24 07:00] VITALS: BP 131/72
[2022-12-24] MEDS: LACTOSE-REDUCED FOOD 237ML LIQUID PO SCH ×3 (08:00→18:00)
[2022-12-24] MEDS: amLODIPine 5mg tablet PO SCH (09:25)
[2022-12-24] MEDS: clopidogrel 75mg tablet PO SCH (09:25)
[2022-12-24] MEDS: heparin, porcine 5000 units/ml vial SQ SCH ×2 (09:25→21:44)
[2022-12-24] MEDS: lisinopril 10 MG tablet PO SCH ×2 (09:26→21:48)
[2022-12-24] MEDS: nystatin 15 GM powder TP SCH ×2 (09:26→21:55)
[2022-12-24 11:05] VITALS: BP 164/91
[2022-12-24 11:06] LABS: BASOPHILS % (AUTO) 0.6 % (0-1); EOSINOPHILS # (AUTO) 0.2 X10'3 (0-0.9); EOSINOPHILS % (AUTO) 3.2 % (0-6); HEMATOCRIT 41.5 % (35.0-45.0); HEMOGLOBIN 13.5 g/dl (12.0-16.0); LYMPHOCYTES # (AUTO) 1.3 X10'3 (1.1-4.8); MEAN CORPUSCULAR HGB CONC 32.5 g/dL (33.0-36.5); MEAN CORPUSCULAR VOLUME 89.3 FL (78-98); MEAN PLATELET VOLUME 8.9 FL (7.4-10.4); MONOCYTES # (AUTO) 0.8 X10'3 (0-0.9); MONOCYTES % (AUTO) 11.1 % (2-12); NEUTROPHILS # (AUTO) 4.8 X10'3 (1.8-7.7); NEUTROPHILS % (AUTO) 67.1 % (42-75); PLATELET COUNT 285 X10'3 (140-440); RED BLOOD COUNT 4.65 X10'6 (4.20-5.60); RED CELL DISTRIBUTION WIDTH 14.2 % (11.5-14.5); WHITE BLOOD COUNT 7.1 X10'3 (4.5-11.0)
[2022-12-24 11:14] LABS: ALANINE AMINOTRANSFERASE 39 U/L (12-78); ALBUMIN 2.5 G/DL (3.4-5.0); ALBUMIN/GLOBULIN RATIO 0.7 (1.1-1.5); ALKALINE PHOSPHATASE 117 IU/L (46-116); ANION GAP 5 (8-16); ASPARTATE AMINO TRANSFERASE 31 U/L (10-37); BILIRUBIN,TOTAL 0.6 MG/DL (0.1-1.0); BLOOD UREA NITROGEN 34 MG/DL (7-18); BUN/CREATININE RATIO 31.5 (6.6-38.0); CALCIUM 9.7 MG/DL (8.5-10.1); CHLORIDE 103 MMOL/L (99-107); CREATININE 1.08 MG/DL (0.40-0.90); GLUCOSE 146 MG/DL (70-104); POTASSIUM 3.8 MMOL/L (3.5-5.1); SODIUM 139 MMOL/L (135-145); TOTAL CARBON DIOXIDE 31.3 MMOL/L (24-32); TOTAL PROTEIN 6.1 G/DL (6.4-8.2); eGFR 52 ML/MIN
[2022-12-24 18:00] VITALS: BP 133/72
--- NOTE | 2022-12-24 18:39 | NUR ---
Patient in room [facility]. I have received report from Shannan REEVES and had the opportunity to ask questions and assume patient care.
--- NOTE | 2022-12-24 18:46 | NUR ---
Problems reprioritized. Patient report given, questions answered & plan of care reviewed with Vivienne REEVES.
[2022-12-24] MEDS: insulin glargine (Lantus) pen - multi-dose SQ SCH (21:00)
[2022-12-24] MEDS: atorvastatin 20mg tablet PO SCH (21:44)
[2022-12-24 23:00] VITALS: BP 126/64
--- NOTE | 2022-12-25 03:38 | NUR ---
Called MD with regard to no urine output thus far. Bladder scan revealed 183cc maximum Patient currently not on fluids. NO new orders received at this time. Will encourage fluid intake when patient is awake.
[2022-12-25 06:00] VITALS: BP 153/66
--- NOTE | 2022-12-25 06:35 | NUR ---
Problems reprioritized. Patient report given, questions answered & plan of care reviewed with Eboni REEVES.
--- NOTE | 2022-12-25 08:00 | NUR ---
RN notified MD regarding pt low urine output. No new interventions at this time, will continue to monitor, and encourage PO fluid intake.
[2022-12-25] MEDS: clopidogrel 75mg tablet PO SCH (08:54)
[2022-12-25] MEDS: lisinopril 10 MG tablet PO SCH ×2 (08:55→20:32)
[2022-12-25] MEDS: amLODIPine 5mg tablet PO SCH (08:55)
[2022-12-25] MEDS: heparin, porcine 5000 units/ml vial SQ SCH ×2 (08:56→20:32)
[2022-12-25] MEDS: LACTOSE-REDUCED FOOD 237ML LIQUID PO SCH ×3 (08:56→18:00)
[2022-12-25] MEDS: nystatin 15 GM powder TP SCH ×2 (08:56→20:33)
[2022-12-25 11:00] VITALS: BP 135/92
--- NOTE | 2022-12-25 14:50 | NUR ---
F/u 12/25: Pt PO overall remains poor this LOS though improving ~69% avg past 4 meals w/ Ensure Plus High Protein TIDWM started WS last night PO ~58% initial ONS. If current PO trends persist pt will be meeting estimated needs for first time this admit. If PO regresses again would certainly benefit from EN via NG for nutrition provision given prior 14 days poor PO intake this LOS. LBM 12/24. Will continue to follow. Recommendations: 1) Continue EC7 diet with thin liquids per ST recs; discontinue heart healthy and CHO controlled diet restriction in view of poor PO hx 2) Encourage PO intake; total assist with meals 3) Ensure Plus HP TID; encourage PO 4) IF PO regresses consider NGT placement for EN if within POC given malnutrition status w/ poor PO hx 14 days. IF EN continuous Glucerna 1.2 at 55 mL/hr goal rate to provide 1320 ml volume/day, 1584 kcal, 1063 ml water, and 79 g protein 5) Routine bowel care 6) Weekly scaled weights Addendum: 12/25/22 at [address] Amended: Links added.
[2022-12-25] MEDS: insulin Lispro (HumaLOG) vial - multi-dose SQ SCH (16:21)
--- NOTE | 2022-12-25 17:45 | NUR ---
Patient had large formed BM this evening
[2022-12-25 18:00] VITALS: BP 126/74
--- NOTE | 2022-12-25 18:30 | NUR ---
report given to tim REEVES
[2022-12-25] MEDS: atorvastatin 20mg tablet PO SCH (20:33)
[2022-12-25 22:00] VITALS: BP 138/76
[2022-12-25] MEDS: insulin glargine (Lantus) pen - multi-dose SQ SCH (22:36)
--- NOTE | 2022-12-26 00:56 | NUR ---
Pt. is awake alert attempting to feed self with right hand, nods yes able to feed self, ate very small amt. Able to drink fluids with assistance, unable to hold on to cup. Pt. has a flat affect appears depressed. IV/SL Purewick intact. Repositioned in bed as needed. Plan for LTAC, SNF when cleared.
[2022-12-26 06:00] VITALS: BP 141/76
[2022-12-26 06:23] LABS: BASOPHILS % (AUTO) 0.7 % (0-1); EOSINOPHILS # (AUTO) 0.2 X10'3 (0-0.9); EOSINOPHILS % (AUTO) 3.1 % (0-6); HEMATOCRIT 39.8 % (35.0-45.0); HEMOGLOBIN 12.9 g/dl (12.0-16.0); LYMPHOCYTES # (AUTO) 1.6 X10'3 (1.1-4.8); LYMPHOCYTES % (AUTO) 23.7 % (21-51); MEAN CORPUSCULAR HEMOGLOBIN 28.8 PG (27.0-31.0); MEAN CORPUSCULAR HGB CONC 32.5 g/dL (33.0-36.5); MEAN CORPUSCULAR VOLUME 88.4 FL (78-98); MEAN PLATELET VOLUME 8.3 FL (7.4-10.4); MONOCYTES # (AUTO) 0.8 X10'3 (0-0.9); MONOCYTES % (AUTO) 12.3 % (2-12); NEUTROPHILS # (AUTO) 4.1 X10'3 (1.8-7.7); NEUTROPHILS % (AUTO) 60.2 % (42-75); PLATELET COUNT 278 X10'3 (140-440); RED CELL DISTRIBUTION WIDTH 13.9 % (11.5-14.5); WHITE BLOOD COUNT 6.8 X10'3 (4.5-11.0)
[2022-12-26 06:32] LABS: ALBUMIN 2.3 G/DL (3.4-5.0); ANION GAP 4 (8-16); BLOOD UREA NITROGEN 32 MG/DL (7-18); BUN/CREATININE RATIO 35.6 (6.6-38.0); CALCIUM 9.3 MG/DL (8.5-10.1); CHLORIDE 103 MMOL/L (99-107); GLUCOSE 121 MG/DL (70-104); POTASSIUM 3.8 MMOL/L (3.5-5.1); SODIUM 138 MMOL/L (135-145); eGFR 64 ML/MIN
[2022-12-26] MEDS: LACTOSE-REDUCED FOOD 237ML LIQUID PO SCH ×3 (07:40→18:47)
[2022-12-26] MEDS: lisinopril 10 MG tablet PO SCH ×2 (07:41→19:56)
[2022-12-26] MEDS: amLODIPine 5mg tablet PO SCH (07:41)
[2022-12-26] MEDS: nystatin 15 GM powder TP SCH ×2 (07:42→19:57)
[2022-12-26] MEDS: heparin, porcine 5000 units/ml vial SQ SCH ×2 (07:42→19:53)
[2022-12-26] MEDS: clopidogrel 75mg tablet PO SCH (07:42)
[2022-12-26 10:00] VITALS: BP 178/87
--- NOTE | 2022-12-26 18:15 | NUR ---
Patient in room [facility]. I have received report from LEANDRO Nur and had the opportunity to ask questions and assume patient care.
--- NOTE | 2022-12-26 18:36 | NUR ---
Problems reprioritized. Patient report given, questions answered & plan of care reviewed with LEANDRO Mcdonald.
[2022-12-26] MEDS: insulin Lispro (HumaLOG) vial - multi-dose SQ SCH (19:53)
[2022-12-26] MEDS: atorvastatin 20mg tablet PO SCH (19:58)
[2022-12-26] MEDS: insulin glargine (Lantus) pen - multi-dose SQ SCH (21:37)
[2022-12-26 22:00] VITALS: BP 146/71
--- NOTE | 2022-12-27 06:40 | NUR ---
Problems reprioritized. Patient report given, questions answered & plan of care reviewed with LEANDRO Guerrero.
--- NOTE | 2022-12-27 06:48 | NUR ---
Patient in room [facility]. I have received report from Ivette and had the opportunity to ask questions and assume patient care.
[2022-12-27] MEDS: LACTOSE-REDUCED FOOD 237ML LIQUID PO SCH ×3 (08:00→18:15)
[2022-12-27 08:30] VITALS: BP 149/85
[2022-12-27] MEDS: clopidogrel 75mg tablet PO SCH (08:45)
[2022-12-27] MEDS: lisinopril 10 MG tablet PO SCH ×2 (08:46→19:46)
[2022-12-27] MEDS: amLODIPine 5mg tablet PO SCH (08:47)
[2022-12-27] MEDS: heparin, porcine 5000 units/ml vial SQ SCH ×2 (08:49→19:48)
[2022-12-27] MEDS: nystatin 15 GM powder TP SCH ×2 (08:52→19:48)
--- NOTE | 2022-12-27 09:03 | NUR ---
Student Medication Administration: For this medication-pass time frame, all medication were reviewed, dispensed, administered and documented per hospital policy by Student Nicky Persaud and Instructor Jenae Jameson RN.
[2022-12-27] MEDS: fluconazole 100mg tablet PO SCH (10:04)
[2022-12-27] MEDS: insulin Lispro (HumaLOG) vial - multi-dose SQ SCH ×2 (13:28→18:52)
--- NOTE | 2022-12-27 14:55 | NUR ---
AGREE WITH PHYSICAL ASSESSMENT DONE BY GARFIELD REEVES EXCEPT FOR CHANGES MADE Addendum: 12/27/22 at 1456 by Carissa Gordon RN Amended: Links added.
--- NOTE | 2022-12-27 16:01 | NUR ---
helped PT position pt, noticed reddened, raw area under lt panus. Moist, but no draining or blood.
--- NOTE | 2022-12-27 17:26 | NUR ---
PAGED DR FOX RE: PAGER ID: [phone] MESSAGE: STEPHEN FIELD. 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 I TOLD HER I WOULD PASS HER REQUEST ON TO MD. GARCIA [phone]
--- NOTE | 2022-12-27 17:58 | NUR ---
Student documentation: I have reviewed and agree with all interventions, assessments performed and documented by Dina Persaud student nurse, by Joao Jameson RN, Instructor.
[2022-12-27 18:00] VITALS: BP 133/75
--- NOTE | 2022-12-27 18:22 | NUR ---
Patient in room [facility]. I have received report from YolandaRN and GalinaRN and had the opportunity to ask questions and assume patient care.
--- NOTE | 2022-12-27 18:28 | NUR ---
Problems reprioritized. Patient report given to Guerda REEVES, questions answered & plan of care reviewed with .
[2022-12-27] MEDS: atorvastatin 20mg tablet PO SCH (19:47)
[2022-12-27] MEDS: insulin glargine (Lantus) pen - multi-dose SQ SCH (21:01)
[2022-12-27 22:00] VITALS: BP 148/78
[2022-12-28 05:00] VITALS: BP 154/86
--- NOTE | 2022-12-28 06:28 | NUR ---
Problems reprioritized. Patient report given, questions answered & plan of care reviewed with LEANDRO Larkin.
[2022-12-28] MEDS: heparin, porcine 5000 units/ml vial SQ SCH ×2 (08:54→20:52)
[2022-12-28] MEDS: amLODIPine 5mg tablet PO SCH (08:55)
[2022-12-28] MEDS: fluconazole 100mg tablet PO SCH (08:55)
[2022-12-28] MEDS: clopidogrel 75mg tablet PO SCH (08:55)
[2022-12-28] MEDS: nystatin 15 GM powder TP SCH ×2 (08:55→20:53)
[2022-12-28] MEDS: lisinopril 10 MG tablet PO SCH ×2 (08:55→20:53)
[2022-12-28] MEDS: LACTOSE-REDUCED FOOD 237ML LIQUID PO SCH ×3 (08:55→17:44)
--- NOTE | 2022-12-28 10:51 | NUR ---
Dr Deluca notified: PAGER ID: [phone] MESSAGE: Chaya, flakita [phone] Gracie Erazo FYI: MRSA in wong/Urine culture. Addendum: 12/28/22 at 1051 by Chaya Howard RN, RN wrong patient, disregard.
--- NOTE | 2022-12-28 11:21 | NUR ---
Patient refused 1000 vitals
[2022-12-28 18:00] VITALS: BP 147/79
--- NOTE | 2022-12-28 18:15 | NUR ---
Patient in room [facility]. I have received report from LEANDRO Larkin and had the opportunity to ask questions and assume patient care.
--- NOTE | 2022-12-28 18:22 | NUR ---
Report given to Ivette REEVES, patient resting comfortably in bed at this time.
[2022-12-28] MEDS: insulin Lispro (HumaLOG) vial - multi-dose SQ SCH (19:11)
[2022-12-28] MEDS: atorvastatin 20mg tablet PO SCH (20:53)
[2022-12-28] MEDS: insulin glargine (Lantus) pen - multi-dose SQ SCH (20:58)
[2022-12-28 22:00] VITALS: BP 136/81
[2022-12-29 06:00] VITALS: BP 143/77
--- NOTE | 2022-12-29 06:14 | NUR ---
Problems reprioritized. Patient report given, questions answered & plan of care reviewed with LEANDRO Guy and FANNY Garsia.
--- NOTE | 2022-12-29 06:38 | NUR ---
Patient in room [facility]. I have received report from LEANDRO Steele and had the opportunity to ask questions and assume patient care.
[2022-12-29] MEDS: amLODIPine 5mg tablet PO SCH (08:00)
[2022-12-29] MEDS: LACTOSE-REDUCED FOOD 237ML LIQUID PO SCH ×3 (08:00→18:30)
[2022-12-29] MEDS: nystatin 15 GM powder TP SCH ×2 (08:00→19:31)
[2022-12-29] MEDS: fluconazole 100mg tablet PO SCH (09:56)
[2022-12-29] MEDS: clopidogrel 75mg tablet PO SCH (09:57)
[2022-12-29] MEDS: lisinopril 10 MG tablet PO SCH ×2 (09:57→19:27)
[2022-12-29] MEDS: heparin, porcine 5000 units/ml vial SQ SCH ×2 (09:59→19:28)
[2022-12-29 10:00] VITALS: BP 143/73
--- NOTE | 2022-12-29 10:30 | NUR ---
Notified MD that patient has not had any labs for 3 days and has heparin ordered. No new labs ordered.
--- NOTE | 2022-12-29 11:28 | NUR ---
I have reviewed and agree with all interventions, assessments performed and documented by LEANDRO ANDRE. Addendum: 12/29/22 at 1414 by Malena Wilburn RN I have reviewed and agree with all interventions, assessments performed and documented by FANNY ANDRE.
--- NOTE | 2022-12-29 13:04 | NUR ---
Page sent to . PAGER ID: [phone] MESSAGE: Aimee Benitez room 349B. Can we take her off tele? She has been in sinus rhythm. Thank you! Sun [phone] Addendum: 12/29/22 at 1305 by Sun Seals SILVER WRAPPER called and said we could remove tele.
[2022-12-29] MEDS: insulin Lispro (HumaLOG) vial - multi-dose SQ SCH ×2 (13:57→19:30)
--- NOTE | 2022-12-29 14:13 | NUR ---
JES, PLUMBER AND TINNER
--- NOTE | 2022-12-29 14:27 | NUR ---
F/u 12/29: Pt PO regressed past 4 days refusing meals 2 of 4 days w/ PO ~34% avg when eating; increased refusals of ONS now at ~38% avg overall partially meeting needs. CHRISSY paged DO regarding liberalizing to regular diet if agreeable given frequent meal refusals w/ overall poor intake LOS. LBM 12/28. Will continue to follow. Recommendations: 1) Continue EC7 diet with thin liquids per ST recs; discontinue heart healthy and CHO controlled diet restriction in view of poor PO hx 2) Encourage PO intake; total assist with meals 3) Ensure Plus HP TID; encourage PO 4) IF PO further regresses consider NGT placement for EN if within POC given malnutrition status w/ poor PO hx >14 days. IF EN continuous Glucerna 1.2 at 55 mL/hr goal rate to provide 1320 ml volume/day, 1584 kcal, 1063 ml water, and 79 g protein 5) Routine bowel care 6) Weekly scaled weights Addendum: 12/29/22 at [address] Amended: Links added.
--- NOTE | 2022-12-29 18:12 | NUR ---
Problems reprioritized. Patient report given, questions answered & plan of care reviewed with LEANDRO Mares.
[2022-12-29 18:30] VITALS: BP 137/76
--- NOTE | 2022-12-29 18:30 | NUR ---
Patient in room [facility]. I have received report from FANNY ANDRE and had the opportunity to ask questions and assume patient care. Addendum: 12/30/22 at 0157 by Wero Mcguire RN Amended: Links added.
[2022-12-29] MEDS: atorvastatin 20mg tablet PO SCH (21:29)
[2022-12-29] MEDS: insulin glargine (Lantus) pen - multi-dose SQ SCH (21:33)
[2022-12-29 22:00] VITALS: BP 155/80
[2022-12-30 05:00] VITALS: BP 157/74
--- NOTE | 2022-12-30 06:44 | NUR ---
Problems reprioritized. Patient report given, questions answered & plan of care reviewed with LEANDRO Rogers. Addendum: 12/30/22 at 0644 by Wero Mcguire RN Amended: Links added.
--- NOTE | 2022-12-30 06:56 | NUR ---
Received report from night nurse Divina REEVES. Assumed care of patient. No acute changes reported. All safety measures in place and call light in reach. Will continue to monitor.
[2022-12-30] MEDS: lisinopril 10 MG tablet PO SCH ×2 (08:11→19:23)
[2022-12-30] MEDS: heparin, porcine 5000 units/ml vial SQ SCH ×2 (08:11→19:24)
[2022-12-30] MEDS: amLODIPine 5mg tablet PO SCH (08:12)
[2022-12-30] MEDS: clopidogrel 75mg tablet PO SCH (08:12)
[2022-12-30] MEDS: fluconazole 100mg tablet PO SCH (08:12)
[2022-12-30] MEDS: LACTOSE-REDUCED FOOD 237ML LIQUID PO SCH ×5 (08:13→17:55)
[2022-12-30] MEDS: nystatin 15 GM powder TP SCH ×2 (08:13→19:24)
[2022-12-30] MEDS: insulin Lispro (HumaLOG) vial - multi-dose SQ SCH ×3 (09:09→19:22)
[2022-12-30 11:00] VITALS: BP 139/87
--- NOTE | 2022-12-30 16:47 | NUR ---
PAGER ID: [phone] MESSAGE: [id number] Aimee Benitez Please call family would like to talk with you. She can make it in the am, if you have time frame for her. Shannan [phone]
--- NOTE | 2022-12-30 16:49 | NUR ---
Aditi [phone] please call so she can talk with the doctor and find out what is going.
--- NOTE | 2022-12-30 17:41 | NUR ---
End of shift note.Problems prioritized. Patient report given, questions answered & plan of care reviewed with NIGHT NURSE. who will assume care of patient. Patient resting in bed with all safety measures and call light within reach.
[2022-12-30 18:30] VITALS: BP 186/89
--- NOTE | 2022-12-30 18:30 | NUR ---
Patient in room [facility]. I have received report from FANNY Rogers and had the opportunity to ask questions and assume patient care. Addendum: 12/31/22 at 0343 by Wero Mcguire RN Amended: Links added.
--- NOTE | 2022-12-30 19:28 | NUR ---
Agree with FANNY's assessment and added my own findings. Addendum: 12/30/22 at 1929 by Shannan Douglass RN Amended: Links added.
[2022-12-30 22:00] VITALS: BP 165/91
[2022-12-30] MEDS: cloNIDine 0.1 mg tablet PO PRN (22:48)
[2022-12-30] MEDS: atorvastatin 20mg tablet PO SCH (22:48)
[2022-12-30] MEDS: insulin glargine (Lantus) pen - multi-dose SQ SCH (23:00)
--- NOTE | 2022-12-31 06:17 | NUR ---
Problems reprioritized. Patient report given, questions answered & plan of care reviewed with FANNY Rogers. Addendum: 12/31/22 at 0617 by Wero Mcguire RN Amended: Links added.
--- NOTE | 2022-12-31 06:26 | NUR ---
DELIA PROGRAMMER DONE. Addendum: 12/31/22 at 0626 by Wero Mcguire RN Amended: Links added.
--- NOTE | 2022-12-31 06:32 | NUR ---
received report from night nurse Assumed care of patient. Patient resting at this time. All safety measures in place and call light in reach. Will continue to monitor.
[2022-12-31] MEDS: heparin, porcine 5000 units/ml vial SQ SCH ×2 (08:02→22:30)
[2022-12-31] MEDS: lisinopril 10 MG tablet PO SCH ×2 (08:03→22:31)
[2022-12-31] MEDS: amLODIPine 5mg tablet PO SCH (08:03)
[2022-12-31] MEDS: clopidogrel 75mg tablet PO SCH (08:03)
[2022-12-31] MEDS: nystatin 15 GM powder TP SCH ×2 (08:04→22:29)
[2022-12-31] MEDS: insulin Lispro (HumaLOG) vial - multi-dose SQ SCH ×3 (08:53→19:55)
[2022-12-31 11:00] VITALS: BP 120/65
--- NOTE | 2022-12-31 17:11 | NUR ---
patient alert and resting in bed. All medications administered as ordered. No acute changes this shift. Will report to night nurse. All safety measures in place and call light in reach. Will continue to monitor.
[2022-12-31 17:27] VITALS: BP 128/76
[2022-12-31 18:00] VITALS: BP 128/76
--- NOTE | 2022-12-31 18:40 | NUR ---
Patient in room [facility]. I have received report from DILIP REEVES and had the opportunity to ask questions and assume patient care.
[2022-12-31] MEDS: LACTOSE-REDUCED FOOD 237ML LIQUID PO SCH (19:39)
[2022-12-31 22:00] VITALS: BP 134/72
[2022-12-31] MEDS: atorvastatin 20mg tablet PO SCH (22:31)
[2022-12-31] MEDS: insulin glargine (Lantus) pen - multi-dose SQ SCH (22:47)
[2023-01-01 06:00] VITALS: BP 126/72
--- NOTE | 2023-01-01 06:32 | NUR ---
Problems reprioritized. Patient report given, questions answered & plan of care reviewed with GERALD REEVES.
--- NOTE | 2023-01-01 07:18 | NUR ---
Patient in room [facility]. I have received report from Supriya Epps Rn and had the opportunity to ask questions and assume patient care.
[2023-01-01] MEDS: nystatin 15 GM powder TP SCH ×2 (08:00→19:43)
[2023-01-01] MEDS: lisinopril 10 MG tablet PO SCH ×2 (08:00→19:42)
[2023-01-01] MEDS: heparin, porcine 5000 units/ml vial SQ SCH ×2 (08:00→19:43)
[2023-01-01] MEDS: LACTOSE-REDUCED FOOD 237ML LIQUID PO SCH ×3 (08:00→19:52)
[2023-01-01] MEDS: clopidogrel 75mg tablet PO SCH (08:38)
[2023-01-01] MEDS: amLODIPine 5mg tablet PO SCH (08:38)
[2023-01-01] MEDS: insulin Lispro (HumaLOG) vial - multi-dose SQ SCH ×2 (09:23→19:40)
--- NOTE | 2023-01-01 13:44 | NUR ---
Reassessment: Pt now on an MM5 diet as of dinner 12/29 per EMR. Received TC from ST stating pt cleared for EC7 food. TC to RN who states pt tolerates MM5 food better, ST notified and pt to continue with MM5 diet. PO intake significantly improved with texture modification, documented with average 63% PO intake of meals and average 71% PO intake of ONS (100% x 5 though refused two most recent). Per EMR pt remains confused and continues receiving total assistance with meals. LBM 12/31. No further nutrition intervention implemented at this time. Will continue to follow. Recommendations: 1) Continue MM5 diet with thin liquids, ST notified 01/01 2) Encourage PO intake; total assist with meals 3) Ensure Plus HP TID; encourage PO intake 4) IF PO further regresses consider NGT placement for EN if within POC given malnutrition status w/ poor PO hx >14 days. IF EN, continuous Glucerna 1.2 at 55 mL/hr goal rate to provide 1320 ml volume/day, 1584 kcal, 1063 ml water, and 79 g protein 5) Routine bowel care 6) Weekly scaled weights Addendum: 01/01/23 at [address] Amended: Links added.
[2023-01-01 18:00] VITALS: BP 152/78
--- NOTE | 2023-01-01 18:37 | NUR ---
Problems reprioritized. Patient report given, questions answered & plan of care reviewed with Supriya Epps RN.
--- NOTE | 2023-01-01 18:40 | NUR ---
Patient in room [facility]. I have received report from GERALD and had the opportunity to ask questions and assume patient care.
[2023-01-01] MEDS: atorvastatin 20mg tablet PO SCH (19:42)
[2023-01-01 22:00] VITALS: BP 147/82
[2023-01-01] MEDS: insulin glargine (Lantus) pen - multi-dose SQ SCH (22:02)
[2023-01-02] VITALS (7 sets, daily range): BP systolic 132–160; BP diastolic 67–99
--- NOTE | 2023-01-02 06:36 | NUR ---
Problems reprioritized. Patient report given, questions answered & plan of care reviewed with RANDALL REEVES.
--- NOTE | 2023-01-02 07:32 | NUR ---
Patient in room [facility]. I have received report from Supriya Epps RN and had the opportunity to ask questions and assume patient care.
[2023-01-02] MEDS: LACTOSE-REDUCED FOOD 237ML LIQUID PO SCH ×3 (08:00→18:00)
[2023-01-02] MEDS: lisinopril 10 MG tablet PO SCH (08:25)
[2023-01-02] MEDS: clopidogrel 75mg tablet PO SCH (08:25)
[2023-01-02] MEDS: amLODIPine 5mg tablet PO SCH (08:27)
[2023-01-02] MEDS: insulin Lispro (HumaLOG) vial - multi-dose SQ SCH (08:29)
[2023-01-02] MEDS: nystatin 15 GM powder TP SCH ×2 (08:34→20:26)
[2023-01-02 10:15] LABS: BASOPHILS % (AUTO) 0.4 % (0-1); EOSINOPHILS # (AUTO) 0.2 X10'3 (0-0.9); EOSINOPHILS % (AUTO) 2.3 % (0-6); HEMATOCRIT 40.6 % (35.0-45.0); HEMOGLOBIN 13.6 g/dl (12.0-16.0); LYMPHOCYTES # (AUTO) 1.6 X10'3 (1.1-4.8); LYMPHOCYTES % (AUTO) 18.2 % (21-51); MEAN CORPUSCULAR HEMOGLOBIN 29.8 PG (27.0-31.0); MEAN CORPUSCULAR HGB CONC 33.4 g/dL (33.0-36.5); MEAN CORPUSCULAR VOLUME 89.3 FL (78-98); MEAN PLATELET VOLUME 7.9 FL (7.4-10.4); MONOCYTES # (AUTO) 0.9 X10'3 (0-0.9); MONOCYTES % (AUTO) 10.4 % (2-12); NEUTROPHILS % (AUTO) 68.7 % (42-75); PLATELET COUNT 388 X10'3 (140-440); RED BLOOD COUNT 4.55 X10'6 (4.20-5.60); RED CELL DISTRIBUTION WIDTH 14.1 % (11.5-14.5); WHITE BLOOD COUNT 8.7 X10'3 (4.5-11.0)
[2023-01-02 11:01] LABS: ALANINE AMINOTRANSFERASE 31 U/L (12-78); ALBUMIN 2.5 G/DL (3.4-5.0); ALBUMIN/GLOBULIN RATIO 0.6 (1.1-1.5); ALKALINE PHOSPHATASE 135 IU/L (46-116); ANION GAP 2 (8-16); ASPARTATE AMINO TRANSFERASE 18 U/L (10-37); BILIRUBIN,TOTAL 0.4 MG/DL (0.1-1.0); BLOOD UREA NITROGEN 29 MG/DL (7-18); BUN/CREATININE RATIO 29.3 (6.6-38.0); CALCIUM 9.8 MG/DL (8.5-10.1); CHLORIDE 101 MMOL/L (99-107); CREATININE 0.99 MG/DL (0.40-0.90); GLUCOSE 136 MG/DL (70-104); MAGNESIUM 1.7 MG/DL (1.5-2.4); POTASSIUM 4.1 MMOL/L (3.5-5.1); SODIUM 135 MMOL/L (135-145); TOTAL CARBON DIOXIDE 32.3 MMOL/L (24-32); TOTAL PROTEIN 6.6 G/DL (6.4-8.2); eGFR 57 ML/MIN
[2023-01-02] MEDS ORDERED: PERFLUTREN PROTEIN-A MICROSPHR (Optison) 0.22 MG/ML 3ML VIAL IV ONE (12:25)
[2023-01-02] MEDS: aspirin 81mg tab.chew PO SCH (13:06)
[2023-01-02] MEDS: heparin, porcine 5000 units/ml vial SQ SCH ×2 (13:07→20:26)
[2023-01-02 13:46] LABS: CHOL/HDL RATIO 3.3 (0.00-4.99); CHOLESTEROL 116 MG/DL (0-200); HDL CHOLESTEROL 35 MG/DL (35-60); LDL CHOLESTEROL 50 MG/DL (50-100); TRIGLYCERIDES 204 MG/DL (20-135)
--- NOTE | 2023-01-02 14:32 | NUR ---
PAGER ID: [phone] MESSAGE: Aishwarya Surg [phone] Re: [id number] Emmanuel have information from Dr Grey Giles
--- NOTE | 2023-01-02 16:00 | NUR ---
Was in patients room with Dr Winter who was informing patient of what her current test results were saying. Patient was having a hard time understanding completely what was going on and what all the tests mean. I asked patient if she had any family besides her friend Aditi and patient stated "No". I asked patient if she would like her friend Aditi to help her make decisions about her care and tests that needed to be done. Patient responded " yes" Dr Winter was at bedside and will be calling Aditi Whitfield and discussing treatment.
[2023-01-02] MEDS ORDERED: hydrALAZINE 20mg/ml inj. IV PRN (16:15)
--- NOTE | 2023-01-02 18:34 | NUR ---
Problems reprioritized. Patient report given, questions answered & plan of care reviewed with Merry Guillermo.
--- NOTE | 2023-01-02 18:59 | NUR ---
called Dr. Ceron - pt passed bedside swallow eval. MD ordered previous diet with speech eval in am. 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
[2023-01-02] MEDS: atorvastatin 20mg tablet PO SCH (20:23)
[2023-01-02] MEDS: insulin glargine (Lantus) pen - multi-dose SQ SCH (21:18)
[2023-01-03] VITALS (21 sets, daily range): BP systolic 112–208; BP diastolic 51–107
--- NOTE | 2023-01-03 02:11 | NUR ---
agree with student charting and edits.
--- NOTE | 2023-01-03 06:45 | NUR ---
Patient in room [facility]. I have received report from Dary REEVES and had the opportunity to ask questions and assume patient care.
[2023-01-03] MEDS: aspirin 81mg tab.chew PO SCH (07:44)
[2023-01-03] MEDS: clopidogrel 75mg tablet PO SCH (07:44)
[2023-01-03] MEDS: heparin, porcine 5000 units/ml vial SQ SCH ×2 (07:45→19:51)
[2023-01-03] MEDS: nystatin 15 GM powder TP SCH ×2 (07:45→19:52)
[2023-01-03] MEDS: LACTOSE-REDUCED FOOD 237ML LIQUID PO SCH ×3 (08:05→18:16)
[2023-01-03] MEDS: insulin Lispro (HumaLOG) vial - multi-dose SQ SCH ×2 (09:24→18:58)
[2023-01-03 12:06] LABS: BASOPHILS # (AUTO) 0.1 X10'3 (0-0.2); BASOPHILS % (AUTO) 0.9 % (0-1); EOSINOPHILS # (AUTO) 0.1 X10'3 (0-0.9); EOSINOPHILS % (AUTO) 1.5 % (0-6); HEMATOCRIT 40.2 % (35.0-45.0); HEMOGLOBIN 13.2 g/dl (12.0-16.0); LYMPHOCYTES # (AUTO) 0.8 X10'3 (1.1-4.8); LYMPHOCYTES % (AUTO) 8.9 % (21-51); MEAN CORPUSCULAR HEMOGLOBIN 29.2 PG (27.0-31.0); MEAN CORPUSCULAR HGB CONC 32.9 g/dL (33.0-36.5); MEAN CORPUSCULAR VOLUME 88.9 FL (78-98); MEAN PLATELET VOLUME 8.1 FL (7.4-10.4); MONOCYTES # (AUTO) 0.8 X10'3 (0-0.9); MONOCYTES % (AUTO) 9.1 % (2-12); NEUTROPHILS # (AUTO) 7.4 X10'3 (1.8-7.7); NEUTROPHILS % (AUTO) 79.6 % (42-75); PLATELET COUNT 386 X10'3 (140-440); RED BLOOD COUNT 4.52 X10'6 (4.20-5.60); WHITE BLOOD COUNT 9.3 X10'3 (4.5-11.0)
--- NOTE | 2023-01-03 12:13 | NUR ---
Orders for morphine and versed put in per Dr. Cosme for NAOMI.
[2023-01-03] MEDS ORDERED: morphine 10mg/ml inj. IV ONE (12:15)
[2023-01-03] MEDS ORDERED: MIDAZolam 1mg/ml 10ml vial IV ONE (12:15)
[2023-01-03 12:25] LABS: ALANINE AMINOTRANSFERASE 28 U/L (12-78); ALBUMIN 2.4 G/DL (3.4-5.0); ALBUMIN/GLOBULIN RATIO 0.6 (1.1-1.5); ALKALINE PHOSPHATASE 128 IU/L (46-116); ANION GAP 5 (8-16); ASPARTATE AMINO TRANSFERASE 18 U/L (10-37); BILIRUBIN,TOTAL 0.4 MG/DL (0.1-1.0); BLOOD UREA NITROGEN 32 MG/DL (7-18); BUN/CREATININE RATIO 31.1 (6.6-38.0); CALCIUM 9.6 MG/DL (8.5-10.1); CHLORIDE 101 MMOL/L (99-107); CREATININE 1.03 MG/DL (0.40-0.90); GLUCOSE 166 MG/DL (70-104); SODIUM 138 MMOL/L (135-145); TOTAL CARBON DIOXIDE 31.8 MMOL/L (24-32); TOTAL PROTEIN 6.2 G/DL (6.4-8.2); eGFR 55 ML/MIN
--- NOTE | 2023-01-03 15:38 | NUR ---
PRESSURE ULCER EDUCATION: DEFINITION: A pressure ulcer is an area of skin that breaks down when you stay in one position too long. The constant pressure against the skin reduces the blood flow to that area and the affected tissue dies. CAUSES: "Being bedridden or in a wheelchair "Fragile skin "Having a chronic condition, such as diabetes or vascular disease "Inability to move certain parts of your body without assistance "Older age "Incontinence of urine or stool SYMPTOMS: "A reddened area that DOES NOT turn white when pressed on - this can be the beginning of a pressure ulcer "A blister, deep sore or a crater - these can be advanced pressure ulcers FIRST AID: "Relieve the pressure on this area "Keep the area clean and dry "Call your primary doctor if you see any of the above symptoms "DO NOT massage the area "DO NOT use a donut shaped or ring shaped pillow- these actually interfere with the blood flow and cause complications PREVENTION: "Check for pressure ulcers everyday "Change position at least every two hours to relieve pressure "Use items that help relieve pressure- pillows, sheepskin, foam padding, and powders. "Keep skin clean and dry "Eat healthy well balanced meals "Exercise daily IF YOU SEE ANY OF THESE SYMPTOMS WHILE IN THE HOSPITAL - TELL YOUR NURSE IMMEDIATELY. IF YOU SEE ANY OF THESE SYMPTOMS WHILE AT HOME OR HAVE ANY QUESTIONS OR CONCERNS ABOUT PRESSURE ULCERS - CALL YOUR PRIMARY DOCTOR IMMEDIATELY. Addendum: 01/03/23 at 1538 by Sofi Wisdom RN Amended: Links added.
--- NOTE | 2023-01-03 18:07 | NUR ---
I have reviewed and agree with all interventions, assessments performed and documented by FANNY Cage.
--- NOTE | 2023-01-03 18:14 | NUR ---
Patient in room [facility]. I have received report from LEANDRO Cage and had the opportunity to ask questions and assume patient care.
--- NOTE | 2023-01-03 18:36 | NUR ---
Problems reprioritized. Patient report given, questions answered & plan of care reviewed with Tamara REEVES.
[2023-01-03] MEDS ORDERED: amLODIPine 5mg tablet PO ONE (19:30)
[2023-01-03] MEDS: atorvastatin 20mg tablet PO SCH (19:51)
[2023-01-03] MEDS: insulin glargine (Lantus) pen - multi-dose SQ SCH (21:23)
[2023-01-04] VITALS (7 sets, daily range): BP systolic 130–153; BP diastolic 62–87
[2023-01-04 00:22] LABS: CLARITY,URINE SLIGHTLY CLOUDY (Clear); COLOR,URINE YELLOW (Yellow); GLUCOSE, URINE NEGATIVE (Neg); KETONES,URINE NEGATIVE (Neg); LEUKOCYTE ESTERASE ,URINE NEGATIVE (Neg); NITRITES, URINE NEGATIVE (Neg); OCCULT BLOOD,URINE NEGATIVE (Neg); PROTEIN,URINE NEGATIVE (Neg); UROBILINOGEN,URINE 0.2 E.U/dL (0.2-1.0)
[2023-01-04 00:40] LABS: UA COLLECTION TYPE NON-SPECIFIED
[2023-01-04 00:45] LABS: RBC,URINE 0-2 /HPF (0-2)
[2023-01-04 00:46] LABS: BACTERIA,URINE FEW /HPF (Neg); MUCUS STRANDS MODERATE /LPF (Neg); SQUAMOUS EPITHELIAL CELL,UR FEW /LPF (FEW); TRANSITIONAL EPI CELLS,URINE FEW /HPF; WBC CLUMPS,URINE FEW /HPF (NEGATIVE)
[2023-01-04 00:47] LABS: CAL OXALATE CRYSTALS FEW /HPF (NEGATIVE)
[2023-01-04 00:48] LABS: FINE GRANULAR CAST 0-3 /LPF (NEGATIVE)
--- NOTE | 2023-01-04 06:27 | NUR ---
Problems reprioritized. Patient report given, questions answered & plan of care reviewed with LEANDRO Escamilla.
--- NOTE | 2023-01-04 06:38 | NUR ---
Patient in room [facility]. I have received report from LEANDRO Mcdonald and had the opportunity to ask questions and assume patient care.
[2023-01-04] MEDS: clopidogrel 75mg tablet PO SCH (07:36)
[2023-01-04] MEDS: lisinopril 20mg tablet PO SCH (07:38)
[2023-01-04] MEDS: amLODIPine 5mg tablet PO SCH (07:40)
[2023-01-04] MEDS: heparin, porcine 5000 units/ml vial SQ SCH ×2 (07:41→18:36)
[2023-01-04] MEDS: LACTOSE-REDUCED FOOD 237ML LIQUID PO SCH ×3 (08:00→18:38)
[2023-01-04] MEDS: nystatin 15 GM powder TP SCH ×2 (08:00→18:41)
[2023-01-04 08:36] LABS: BASOPHILS # (AUTO) 0.1 X10'3 (0-0.2); BASOPHILS % (AUTO) 0.7 % (0-1); EOSINOPHILS # (AUTO) 0.2 X10'3 (0-0.9); EOSINOPHILS % (AUTO) 2.3 % (0-6); HEMATOCRIT 41.1 % (35.0-45.0); HEMOGLOBIN 13.8 g/dl (12.0-16.0); LYMPHOCYTES # (AUTO) 1.5 X10'3 (1.1-4.8); LYMPHOCYTES % (AUTO) 19.3 % (21-51); MEAN CORPUSCULAR HEMOGLOBIN 29.7 PG (27.0-31.0); MEAN CORPUSCULAR HGB CONC 33.5 g/dL (33.0-36.5); MEAN CORPUSCULAR VOLUME 88.6 FL (78-98); MEAN PLATELET VOLUME 7.9 FL (7.4-10.4); MONOCYTES # (AUTO) 0.8 X10'3 (0-0.9); MONOCYTES % (AUTO) 10.2 % (2-12); NEUTROPHILS # (AUTO) 5.2 X10'3 (1.8-7.7); NEUTROPHILS % (AUTO) 67.5 % (42-75); PLATELET COUNT 400 X10'3 (140-440); RED BLOOD COUNT 4.64 X10'6 (4.20-5.60); WHITE BLOOD COUNT 7.7 X10'3 (4.5-11.0)
[2023-01-04 08:57] LABS: ALANINE AMINOTRANSFERASE 29 U/L (12-78); ALBUMIN 2.5 G/DL (3.4-5.0); ALBUMIN/GLOBULIN RATIO 0.6 (1.1-1.5); ALKALINE PHOSPHATASE 127 IU/L (46-116); ANION GAP 6 (8-16); ASPARTATE AMINO TRANSFERASE 17 U/L (10-37); BILIRUBIN,TOTAL 0.5 MG/DL (0.1-1.0); BLOOD UREA NITROGEN 30 MG/DL (7-18); BUN/CREATININE RATIO 34.9 (6.6-38.0); CALCIUM 9.9 MG/DL (8.5-10.1); CHLORIDE 102 MMOL/L (99-107); CREATININE 0.86 MG/DL (0.40-0.90); GLUCOSE 106 MG/DL (70-104); POTASSIUM 4.3 MMOL/L (3.5-5.1); SODIUM 138 MMOL/L (135-145); TOTAL CARBON DIOXIDE 30.1 MMOL/L (24-32); TOTAL PROTEIN 6.4 G/DL (6.4-8.2); eGFR 68 ML/MIN
[2023-01-04] MEDS: insulin Lispro (HumaLOG) vial - multi-dose SQ SCH ×2 (09:04→18:39)
[2023-01-04] MEDS: aspirin 81mg tab.chew PO SCH (09:10)
--- NOTE | 2023-01-04 10:17 | NUR ---
Patient has not voided and denies pain or discomfort and the urge to void. Bladder scan shows 287ml. Will continue to monitor.
--- NOTE | 2023-01-04 12:20 | NUR ---
Dr. Winter in to see patient. Patient had bladder incontinence. Pericare performed. Patient repositioned for comfort.
--- NOTE | 2023-01-04 18:34 | NUR ---
Problems reprioritized. Patient report given, questions answered & plan of care reviewed with LEANDRO Cuevas.
[2023-01-04] MEDS: atorvastatin 20mg tablet PO SCH (18:36)
[2023-01-04] MEDS: insulin glargine (Lantus) pen - multi-dose SQ SCH (21:18)
[2023-01-05 02:00] VITALS: BP 137/74
[2023-01-05 07:00] VITALS: BP 166/82
[2023-01-05 07:58] LABS: BASOPHILS % (AUTO) 0.6 % (0-1); EOSINOPHILS # (AUTO) 0.1 X10'3 (0-0.9); EOSINOPHILS % (AUTO) 1.7 % (0-6); HEMATOCRIT 39.5 % (35.0-45.0); HEMOGLOBIN 13.2 g/dl (12.0-16.0); LYMPHOCYTES # (AUTO) 1.4 X10'3 (1.1-4.8); LYMPHOCYTES % (AUTO) 17.8 % (21-51); MEAN CORPUSCULAR HEMOGLOBIN 29.6 PG (27.0-31.0); MEAN CORPUSCULAR HGB CONC 33.4 g/dL (33.0-36.5); MEAN CORPUSCULAR VOLUME 88.8 FL (78-98); MONOCYTES # (AUTO) 0.7 X10'3 (0-0.9); MONOCYTES % (AUTO) 9.6 % (2-12); NEUTROPHILS # (AUTO) 5.5 X10'3 (1.8-7.7); NEUTROPHILS % (AUTO) 70.3 % (42-75); PLATELET COUNT 376 X10'3 (140-440); RED BLOOD COUNT 4.45 X10'6 (4.20-5.60); RED CELL DISTRIBUTION WIDTH 13.9 % (11.5-14.5); WHITE BLOOD COUNT 7.8 X10'3 (4.5-11.0)
[2023-01-05] MEDS: LACTOSE-REDUCED FOOD 237ML LIQUID PO SCH ×3 (08:00→18:00)
[2023-01-05] MEDS: nystatin 15 GM powder TP SCH ×2 (08:00→22:01)
[2023-01-05 08:18] LABS: ALANINE AMINOTRANSFERASE 32 U/L (12-78); ALBUMIN 2.4 G/DL (3.4-5.0); ALBUMIN/GLOBULIN RATIO 0.6 (1.1-1.5); ALKALINE PHOSPHATASE 119 IU/L (46-116); ANION GAP 6 (8-16); ASPARTATE AMINO TRANSFERASE 29 U/L (10-37); BILIRUBIN,TOTAL 0.4 MG/DL (0.1-1.0); BLOOD UREA NITROGEN 34 MG/DL (7-18); CALCIUM 9.8 MG/DL (8.5-10.1); CHLORIDE 102 MMOL/L (99-107); GLUCOSE 114 MG/DL (70-104); POTASSIUM 4.2 MMOL/L (3.5-5.1); SODIUM 138 MMOL/L (135-145); TOTAL CARBON DIOXIDE 29.9 MMOL/L (24-32); TOTAL PROTEIN 6.1 G/DL (6.4-8.2); eGFR 57 ML/MIN
[2023-01-05] MEDS: aspirin 81mg tab.chew PO SCH (08:50)
[2023-01-05] MEDS: heparin, porcine 5000 units/ml vial SQ SCH ×2 (08:50→19:24)
[2023-01-05] MEDS: lisinopril 20mg tablet PO SCH (08:51)
[2023-01-05] MEDS: clopidogrel 75mg tablet PO SCH (08:51)
[2023-01-05] MEDS: amLODIPine 5mg tablet PO SCH (08:51)
[2023-01-05 10:00] VITALS: BP 147/82
[2023-01-05] MEDS ORDERED: amLODIPine 5mg tablet PO ONE (15:45)
--- NOTE | 2023-01-05 17:49 | NUR ---
Medical POA: Aditi Whitfield, telephone: [phone].
[2023-01-05 18:00] VITALS: BP 128/75
--- NOTE | 2023-01-05 18:25 | NUR ---
Problems reprioritized. Patient report given, questions answered & plan of care reviewed with Nikole REEVES.
[2023-01-05] MEDS: insulin Lispro (HumaLOG) vial - multi-dose SQ SCH (19:22)
[2023-01-05] MEDS: atorvastatin 20mg tablet PO SCH (21:58)
[2023-01-05 22:00] VITALS: BP 144/81
[2023-01-05] MEDS: insulin glargine (Lantus) pen - multi-dose SQ SCH (22:00)
[2023-01-06 02:47] VITALS: BP 153/72
--- NOTE | 2023-01-06 06:34 | NUR ---
Problems reprioritized. Patient report given, questions answered & plan of care reviewed with fer Campbell.
[2023-01-06] MEDS: LACTOSE-REDUCED FOOD 237ML LIQUID PO SCH (08:00)
[2023-01-06] MEDS: nystatin 15 GM powder TP SCH ×2 (08:00→21:11)
--- NOTE | 2023-01-06 08:00 | NUR ---
[employer] did not save meds. Checked all meds prior to administration
[2023-01-06] MEDS: aspirin 81mg tab.chew PO SCH (08:15)
[2023-01-06] MEDS: insulin Lispro (HumaLOG) vial - multi-dose SQ SCH ×3 (08:48→19:14)
[2023-01-06] MEDS: heparin, porcine 5000 units/ml vial SQ SCH ×2 (09:15→21:11)
[2023-01-06] MEDS: lisinopril 20mg tablet PO SCH (09:15)
[2023-01-06] MEDS: clopidogrel 75mg tablet PO SCH (09:15)
[2023-01-06] MEDS: amLODIPine 5mg tablet PO SCH (09:15)
[2023-01-06 10:43] VITALS: BP 156/90
--- NOTE | 2023-01-06 14:43 | NUR ---
Nestor from dietary here to evaluate dietary and offering suggestions. Client refuses Ensure, and all foods and drinks.
--- NOTE | 2023-01-06 15:51 | NUR ---
F/u 01/06: Pt PO intake now regressing drank 4 of past 18 ONS and participating in 6 of past 16 meals ~21% recent documented meals receiving max assistance per EMR not meeting needs. RD paged MD regarding liberalizing to regular/MM5 diet if agreeable given poor intake now 19 of [address] notified MD recommends new scaled wt this admit since last 12/14 so can further determine malnutrition severity. Pt AOx4 per EMR and seen by RD at bedside. Pt able to responds appropriately though only responds when wants to and didn't answer any of RD's questions regarding food preferences. Pt agreed when RD provided verbal ed on importance of nutrition for recovery reviewing malnutrition status yet only reports she does not like Ensures. Ensures now cancelled in EMR to avoid waste as pt has multiple unopened at bedside. RD reviewed alternative nutrition options w/ pt but no response pt turns back to watching TV-would likely refuse NG per RN today. RD contacted Medical POA Aditi Whitfield [phone] provided in EMR to obtain food preferences. 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 RD offered smoothies/shakes to pt but no response; will try magic cup shake TIDWM in hopes pt will intake given POA report. IF current trends persists pt will certainly need EN nutrition support to assist w/ nutrition repletion. LBM 3/4. Will monitor for further nutrition intervention needs. Recommendations: 1) Continue MM5 diet with thin liquids for ease of PO ST notified 01/01; cancel carb controlled/heart healthy diet restrictions given malnutrition and poor intake majority of LOS 2) Encourage PO intake; total assist with meals 3) Dislikes Ensures per pt, magic cup shake TIDWM-encourage PO 4) IF poor PO persists consider NGT placement for EN if within POC given malnutrition status w/ poor PO hx >14 days. IF EN, continuous Glucerna 1.2 at 55 mL/hr goal rate to provide 1320 ml volume/day, 1584 kcal, 1063 ml water, and 79 g protein 5) Routine bowel care 6) Weekly scaled weights Addendum: 01/06/23 at [address] Amended: Links added.
[2023-01-06 16:43] VITALS: BP 115/78
[2023-01-06 18:00] VITALS: BP 136/64
[2023-01-06] MEDS: atorvastatin 20mg tablet PO SCH (21:07)
[2023-01-06] MEDS: insulin glargine (Lantus) pen - multi-dose SQ SCH (21:25)
[2023-01-06 22:00] VITALS: BP 155/81
[2023-01-07] VITALS (7 sets, daily range): BP systolic 127–189; BP diastolic 76–90
--- NOTE | 2023-01-07 06:40 | NUR ---
Problems reprioritized. Patient report given, questions answered & plan of care reviewed with BOOM REEVES.
[2023-01-07 09:55] LABS: BASOPHILS # (AUTO) 0.1 X10'3 (0-0.2); BASOPHILS % (AUTO) 0.5 % (0-1); EOSINOPHILS # (AUTO) 0.1 X10'3 (0-0.9); EOSINOPHILS % (AUTO) 0.9 % (0-6); HEMATOCRIT 40.7 % (35.0-45.0); HEMOGLOBIN 13.7 g/dl (12.0-16.0); LYMPHOCYTES % (AUTO) 9.8 % (21-51); MEAN CORPUSCULAR HEMOGLOBIN 29.7 PG (27.0-31.0); MEAN CORPUSCULAR HGB CONC 33.5 g/dL (33.0-36.5); MEAN CORPUSCULAR VOLUME 88.5 FL (78-98); MEAN PLATELET VOLUME 7.7 FL (7.4-10.4); MONOCYTES # (AUTO) 0.7 X10'3 (0-0.9); MONOCYTES % (AUTO) 6.9 % (2-12); NEUTROPHILS # (AUTO) 8.1 X10'3 (1.8-7.7); NEUTROPHILS % (AUTO) 81.9 % (42-75); PLATELET COUNT 410 X10'3 (140-440); RED CELL DISTRIBUTION WIDTH 13.8 % (11.5-14.5); WHITE BLOOD COUNT 9.9 X10'3 (4.5-11.0)
[2023-01-07 10:26] LABS: ALANINE AMINOTRANSFERASE 28 U/L (12-78); ALBUMIN 2.6 G/DL (3.4-5.0); ALBUMIN/GLOBULIN RATIO 0.7 (1.1-1.5); ALKALINE PHOSPHATASE 132 IU/L (46-116); ANION GAP 8 (8-16); ASPARTATE AMINO TRANSFERASE 17 U/L (10-37); BILIRUBIN,TOTAL 0.4 MG/DL (0.1-1.0); BLOOD UREA NITROGEN 32 MG/DL (7-18); BUN/CREATININE RATIO 31.1 (6.6-38.0); CALCIUM 9.4 MG/DL (8.5-10.1); CHLORIDE 100 MMOL/L (99-107); CREATININE 1.03 MG/DL (0.40-0.90); GLUCOSE 293 MG/DL (70-104); POTASSIUM 4.6 MMOL/L (3.5-5.1); SODIUM 136 MMOL/L (135-145); TOTAL CARBON DIOXIDE 28.1 MMOL/L (24-32); TOTAL PROTEIN 6.4 G/DL (6.4-8.2); eGFR 55 ML/MIN
[2023-01-07] MEDS: lisinopril 20mg tablet PO SCH (10:45)
[2023-01-07] MEDS: clopidogrel 75mg tablet PO SCH (10:45)
[2023-01-07] MEDS: aspirin 81mg tab.chew PO SCH (10:46)
[2023-01-07] MEDS: heparin, porcine 5000 units/ml vial SQ SCH ×2 (10:52→22:21)
[2023-01-07] MEDS: nystatin 15 GM powder TP SCH ×2 (10:52→22:29)
[2023-01-07] MEDS: amLODIPine 5mg tablet PO SCH (10:57)
--- NOTE | 2023-01-07 14:55 | NUR ---
PAGER ID: [phone] MESSAGE: [phone] Cassi Benitez Can we please try oral hypoglycemics? She is not a consistent eater and it is hard to cover her with the insulin protocol with out dropping her due to her not wanting to eat, every meal. Shannan [phone] Addendum: 01/07/23 at 1458 by Shannan Douglass RN Dr. Fierro decided against oral hypoglycemics.
[2023-01-07] MEDS: insulin Lispro (HumaLOG) vial - multi-dose SQ SCH ×3 (15:16→22:36)
--- NOTE | 2023-01-07 15:34 | NUR ---
Rechecked patients blood sugar prior to insulin, Blood sugar was 290, continued with late lunch coverage.
--- NOTE | 2023-01-07 18:30 | NUR ---
Patient in room [facility]. I have received report from BOOM REEVES and had the opportunity to ask questions and assume patient care.
[2023-01-07] MEDS: atorvastatin 20mg tablet PO SCH (22:22)
[2023-01-07] MEDS: insulin glargine (Lantus) pen - multi-dose SQ SCH (22:35)
[2023-01-08 03:00] VITALS: BP 132/82
--- NOTE | 2023-01-08 06:22 | NUR ---
Problems reprioritized. Patient report given, questions answered & plan of care reviewed with RONNIE REEVES.
--- NOTE | 2023-01-08 06:24 | NUR ---
Patient in room [facility]. I have received report from LEANDRO Pedroza and had the opportunity to ask questions and assume patient care.
[2023-01-08 08:00] VITALS: BP 133/77
[2023-01-08] MEDS: clopidogrel 75mg tablet PO SCH (08:17)
[2023-01-08] MEDS: amLODIPine 5mg tablet PO SCH (08:19)
[2023-01-08] MEDS: aspirin 81mg tab.chew PO SCH (08:20)
[2023-01-08] MEDS: nystatin 15 GM powder TP SCH ×2 (08:22→20:20)
[2023-01-08] MEDS: lisinopril 20mg tablet PO SCH (08:22)
[2023-01-08] MEDS: heparin, porcine 5000 units/ml vial SQ SCH ×2 (08:25→20:12)
[2023-01-08] MEDS: insulin Lispro (HumaLOG) vial - multi-dose SQ SCH ×2 (09:45→14:10)
[2023-01-08 12:00] VITALS: BP 144/75
[2023-01-08 16:48] VITALS: BP 130/73
--- NOTE | 2023-01-08 18:34 | NUR ---
Problems reprioritized. Patient report given, questions answered & plan of care reviewed with LEANDRO Pedroza.
[2023-01-08 19:00] VITALS: BP 130/73
[2023-01-08] MEDS: atorvastatin 20mg tablet PO SCH (20:12)
[2023-01-08] MEDS: insulin glargine (Lantus) pen - multi-dose SQ SCH (22:40)
[2023-01-08 23:00] VITALS: BP 135/86
[2023-01-09 03:00] VITALS: BP 138/82
--- NOTE | 2023-01-09 06:19 | NUR ---
Problems reprioritized. Patient report given, questions answered & plan of care reviewed with RONNIE REEVES.
[2023-01-09 07:30] VITALS: BP 165/95
[2023-01-09] MEDS: aspirin 81mg tab.chew PO SCH (08:06)
[2023-01-09] MEDS: lisinopril 20mg tablet PO SCH (08:06)
[2023-01-09] MEDS: amLODIPine 5mg tablet PO SCH (08:07)
[2023-01-09] MEDS: heparin, porcine 5000 units/ml vial SQ SCH ×2 (08:07→20:51)
[2023-01-09] MEDS: clopidogrel 75mg tablet PO SCH (08:07)
[2023-01-09] MEDS: nystatin 15 GM powder TP SCH ×2 (10:04→20:51)
[2023-01-09] MEDS: insulin Lispro (HumaLOG) vial - multi-dose SQ SCH ×3 (10:08→19:31)
[2023-01-09 11:39] VITALS: BP 138/82
--- NOTE | 2023-01-09 14:42 | NUR ---
F/u 01/09: Pt PO overall poor though past 4 meals improving only one refusal w/ ~61% avg and 100% starch WB this AM partially meeting needs. Per RN, friend brought garlic seasoning to pt which has assisted intake though pt did not drink magic cup shake WB this AM. Will stop sending shake WB and monitor further PO acceptance. Pt new wt 100.9kg -3.4kg past month ~3.3% UBW loss non-severe but already triggered for non-severe malnutrition this admit. RD was previously on regular/grind all diet per RD/CONTENT SPECIALIST recs but returned to carb controlled/heart healthy restriction; RD paged MD regarding removal of diet restrictions to transition to regular/MM5 meals given poor intake overall LOS. LBM 01/07. Will monitor for further PO trends and nutrition intervention needs. Recommendations: 1) Continue MM5 diet with thin liquids for ease of PO ST notified 01/01; cancel carb controlled/heart healthy diet restrictions given malnutrition and poor intake majority of LOS 2) Encourage PO intake; total assist with meals 3) Dislikes Ensures per pt, magic cup shake BIDLD-encourage PO 4) IF PO trends regress to prior poor intake hx; consider NGT placement for EN if within POC given malnutrition status w/ poor PO hx >14 days. IF EN, continuous Glucerna 1.2 at 55 mL/hr goal rate to provide 1320 ml volume/day, 1584 kcal, 1063 ml water, and 79 g protein 5) Routine bowel care 6) Weekly scaled weights Addendum: 01/09/23 at [address] Amended: Links added.
[2023-01-09 16:49] VITALS: BP 175/94
--- NOTE | 2023-01-09 18:23 | NUR ---
Problems reprioritized. Patient report given, questions answered & plan of care reviewed with LEANDRO Pedroza.
[2023-01-09 19:00] VITALS: BP 115/85
[2023-01-09] MEDS: atorvastatin 20mg tablet PO SCH (20:51)
[2023-01-09] MEDS: insulin glargine (Lantus) pen - multi-dose SQ SCH (22:00)
[2023-01-09 23:00] VITALS: BP 146/82
[2023-01-10 03:00] VITALS: BP 149/86
--- NOTE | 2023-01-10 06:17 | NUR ---
Problems reprioritized. Patient report given, questions answered & plan of care reviewed with RONNIE REEVES.
--- NOTE | 2023-01-10 06:35 | NUR ---
Patient in room [facility]. I have received report from LEANDRO Pedroza and had the opportunity to ask questions and assume patient care.
[2023-01-10 07:00] VITALS: BP 159/82
[2023-01-10] MEDS: lisinopril 20mg tablet PO SCH (08:12)
[2023-01-10] MEDS: aspirin 81mg tab.chew PO SCH (08:12)
[2023-01-10] MEDS: clopidogrel 75mg tablet PO SCH (08:12)
[2023-01-10] MEDS: amLODIPine 5mg tablet PO SCH (08:13)
[2023-01-10] MEDS: heparin, porcine 5000 units/ml vial SQ SCH ×2 (08:15→20:51)
--- NOTE | 2023-01-10 08:18 | NUR ---
Student Medication Administration: For this medication-pass time frame, all medication were reviewed, dispensed, administered and documented per hospital policy by Henok student with Andi Mcbride RN.
[2023-01-10] MEDS: insulin Lispro (HumaLOG) vial - multi-dose SQ SCH ×2 (10:00→13:45)
[2023-01-10] MEDS: nystatin 15 GM powder TP SCH ×2 (10:03→20:51)
--- NOTE | 2023-01-10 10:56 | NUR ---
Dr. Deluca in to see patient and ok for neuro checks to be dc'd.
[2023-01-10 11:45] VITALS: BP 138/74
[2023-01-10 16:13] VITALS: BP 109/87
[2023-01-10 18:00] VITALS: BP 123/79
--- NOTE | 2023-01-10 18:40 | NUR ---
Patient in room [facility]. I have received report from RONNIE REEVES and had the opportunity to ask questions and assume patient care.
--- NOTE | 2023-01-10 20:09 | NUR ---
Student documentation: I have reviewed and agree with all interventions, assessments performed and documented by Manasa Orellana student nurse, by Joao Jameson RN Instructor.
[2023-01-10] MEDS: atorvastatin 20mg tablet PO SCH (20:51)
[2023-01-10] MEDS: insulin glargine (Lantus) pen - multi-dose SQ SCH (22:44)
[2023-01-10 23:00] VITALS: BP 105/61
[2023-01-11 06:00] VITALS: BP 121/74
--- NOTE | 2023-01-11 06:40 | NUR ---
Problems reprioritized. Patient report given, questions answered & plan of care reviewed with GERALD REEVES.
--- NOTE | 2023-01-11 07:08 | NUR ---
Patient in room [facility]. I have received report from Supriya Epps RN and had the opportunity to ask questions and assume patient care.
[2023-01-11] MEDS: lisinopril 20mg tablet PO SCH ×2 (08:00→18:43)
[2023-01-11] MEDS: aspirin 81mg tab.chew PO SCH (08:44)
[2023-01-11] MEDS: clopidogrel 75mg tablet PO SCH (08:44)
[2023-01-11] MEDS: nystatin 15 GM powder TP SCH ×2 (08:45→18:54)
[2023-01-11] MEDS: amLODIPine 5mg tablet PO SCH (08:45)
[2023-01-11] MEDS: heparin, porcine 5000 units/ml vial SQ SCH ×2 (08:45→18:53)
[2023-01-11 10:00] VITALS: BP 148/77
[2023-01-11] MEDS: insulin Lispro (HumaLOG) vial - multi-dose SQ SCH ×2 (14:23→18:48)
--- NOTE | 2023-01-11 15:29 | NUR ---
Problems reprioritized. Patient report given, questions answered & plan of care reviewed with nahun REEVESdischarge planner.
--- NOTE | 2023-01-11 15:30 | NUR ---
Assumed care of pt. Pt awake and alert. Pt aphasic but able to use 2-3 words to express concerns. Pt denied any pain at this time.
[2023-01-11 18:00] VITALS: BP 137/77
[2023-01-11] MEDS: atorvastatin 20mg tablet PO SCH (18:54)
[2023-01-11] MEDS: insulin glargine (Lantus) pen - multi-dose SQ SCH (20:58)
[2023-01-12] VITALS: BP 133/65
[2023-01-12 06:00] VITALS: BP 142/82
--- NOTE | 2023-01-12 07:00 | NUR ---
Patient in room [facility]. I have received report from BRITTANY REEVES and had the opportunity to ask questions and assume patient care.
[2023-01-12 08:00] VITALS: BP_SYST 104; BP_SYST 154; BP_DIAS 50; BP_DIAS 71
[2023-01-12 09:23] LABS: BASOPHILS # (AUTO) 0.1 X10'3 (0-0.2); BASOPHILS % (AUTO) 0.8 % (0-1); EOSINOPHILS # (AUTO) 0.1 X10'3 (0-0.9); EOSINOPHILS % (AUTO) 1.5 % (0-6); HEMATOCRIT 40.8 % (35.0-45.0); HEMOGLOBIN 13.6 g/dl (12.0-16.0); LYMPHOCYTES # (AUTO) 1.4 X10'3 (1.1-4.8); LYMPHOCYTES % (AUTO) 17.2 % (21-51); MEAN CORPUSCULAR HEMOGLOBIN 29.8 PG (27.0-31.0); MEAN CORPUSCULAR HGB CONC 33.4 g/dL (33.0-36.5); MEAN CORPUSCULAR VOLUME 89.3 FL (78-98); MEAN PLATELET VOLUME 7.7 FL (7.4-10.4); MONOCYTES # (AUTO) 0.6 X10'3 (0-0.9); MONOCYTES % (AUTO) 7.5 % (2-12); NEUTROPHILS # (AUTO) 5.9 X10'3 (1.8-7.7); PLATELET COUNT 381 X10'3 (140-440); RED BLOOD COUNT 4.57 X10'6 (4.20-5.60); WHITE BLOOD COUNT 8.1 X10'3 (4.5-11.0)
[2023-01-12] MEDS: nystatin 15 GM powder TP SCH ×2 (09:26→20:32)
[2023-01-12] MEDS: clopidogrel 75mg tablet PO SCH (09:26)
[2023-01-12] MEDS: aspirin 81mg tab.chew PO SCH (09:26)
[2023-01-12] MEDS: lisinopril 20mg tablet PO SCH (09:27)
[2023-01-12] MEDS: amLODIPine 5mg tablet PO SCH (09:27)
[2023-01-12 09:43] LABS: ALANINE AMINOTRANSFERASE 40 U/L (12-78); ALBUMIN 2.6 G/DL (3.4-5.0); ALBUMIN/GLOBULIN RATIO 0.7 (1.1-1.5); ALKALINE PHOSPHATASE 119 IU/L (46-116); ANION GAP 7 (8-16); ASPARTATE AMINO TRANSFERASE 32 U/L (10-37); BILIRUBIN,TOTAL 0.4 MG/DL (0.1-1.0); BLOOD UREA NITROGEN 42 MG/DL (7-18); BUN/CREATININE RATIO 39.6 (6.6-38.0); CALCIUM 9.7 MG/DL (8.5-10.1); CHLORIDE 102 MMOL/L (99-107); CREATININE 1.06 MG/DL (0.40-0.90); GLUCOSE 173 MG/DL (70-104); POTASSIUM 4.3 MMOL/L (3.5-5.1); SODIUM 137 MMOL/L (135-145); TOTAL CARBON DIOXIDE 28.1 MMOL/L (24-32); TOTAL PROTEIN 6.3 G/DL (6.4-8.2); eGFR 53 ML/MIN
[2023-01-12] MEDS: heparin, porcine 5000 units/ml vial SQ SCH ×2 (10:05→20:31)
[2023-01-12] MEDS: insulin Lispro (HumaLOG) vial - multi-dose SQ SCH ×3 (10:18→19:22)
[2023-01-12 11:00] VITALS: BP_SYST 146; BP_SYST 166; BP_DIAS 45; BP_DIAS 77
[2023-01-12 18:40] VITALS: BP 141/76
[2023-01-12] MEDS: atorvastatin 20mg tablet PO SCH (20:31)
[2023-01-12] MEDS: insulin glargine (Lantus) pen - multi-dose SQ SCH (22:11)
[2023-01-12 22:30] VITALS: BP 147/71
--- NOTE | 2023-01-13 02:45 | NUR ---
Problems reprioritized. Patient report given, questions answered & plan of care reviewed with tello monroe.
--- NOTE | 2023-01-13 03:07 | NUR ---
Patient in room [facility]. I have received report from BRAD and had the opportunity to ask questions and assume patient care.
[2023-01-13 05:00] VITALS: BP 160/84
--- NOTE | 2023-01-13 06:10 | NUR ---
Patient in room [facility]. I have received report from Carmen REEVES and had the opportunity to ask questions and assume patient care.
[2023-01-13] MEDS: clopidogrel 75mg tablet PO SCH (07:33)
[2023-01-13] MEDS: lisinopril 20mg tablet PO SCH (07:34)
[2023-01-13] MEDS: amLODIPine 5mg tablet PO SCH (07:34)
[2023-01-13] MEDS: heparin, porcine 5000 units/ml vial SQ SCH ×2 (07:36→21:25)
[2023-01-13] MEDS: nystatin 15 GM powder TP SCH ×2 (08:00→21:25)
[2023-01-13] MEDS: aspirin 81mg tab.chew PO SCH (08:30)
--- NOTE | 2023-01-13 09:04 | NUR ---
Patient didn't have an appetite this morning and barely took a bite of oatmeal. Patient BS [id number] and is at a level 2. Patient didn't qualify for nutritional or correctional insulin this morning. No insulin given.
[2023-01-13] MEDS: insulin Lispro (HumaLOG) vial - multi-dose SQ SCH ×2 (14:29→21:12)
--- NOTE | 2023-01-13 17:30 | NUR ---
I have reviewed and agree with interventions, assessments, and documentation by Amanda Duarte LVN
--- NOTE | 2023-01-13 18:30 | NUR ---
Patient in room [facility]. I have received report from [facility] and had the opportunity to ask questions and assume patient care.
--- NOTE | 2023-01-13 18:51 | NUR ---
Problems reprioritized. Patient report given, questions answered & plan of care reviewed with Carmen REEVES.
[2023-01-13 19:00] VITALS: BP 143/78
[2023-01-13] MEDS: insulin glargine (Lantus) pen - multi-dose SQ SCH (21:22)
[2023-01-13] MEDS: atorvastatin 20mg tablet PO SCH (21:24)
[2023-01-13 22:00] VITALS: BP 138/79
[2023-01-14 06:00] VITALS: BP 155/87
--- NOTE | 2023-01-14 06:30 | NUR ---
Patient in room [facility]. I have received report from Carmen REEVES and had the opportunity to ask questions and assume patient care.
[2023-01-14] MEDS: heparin, porcine 5000 units/ml vial SQ SCH ×2 (07:40→21:33)
[2023-01-14] MEDS: lisinopril 20mg tablet PO SCH (07:40)
[2023-01-14] MEDS: amLODIPine 5mg tablet PO SCH (07:40)
[2023-01-14] MEDS: clopidogrel 75mg tablet PO SCH (07:40)
[2023-01-14] MEDS: aspirin 81mg tab.chew PO SCH (07:40)
[2023-01-14] MEDS: nystatin 15 GM powder TP SCH ×2 (08:00→21:41)
[2023-01-14] MEDS: insulin Lispro (HumaLOG) vial - multi-dose SQ SCH ×2 (09:12→13:49)
[2023-01-14 11:00] VITALS: BP 173/82
--- NOTE | 2023-01-14 11:28 | NUR ---
PAGER ID: [phone] MESSAGE: [phone]- Roc Benitez- May I straight cath patient for the UA? Pls advise? ANDREW Patel [phone]
--- NOTE | 2023-01-14 14:10 | NUR ---
F/u 01/14: Pt PO remains poor continues to fluctuate between partial intake and periods of 0-25% overall ~42% avg past 5 days partially meeting estimated needs. Pt still on carb control and heart healthy diet restrictions despite multiple pages to physician; CHRISSY paged MD again today regarding this as well as appetite stimulant if agreeable. Receiving magic cup shake BIDLD to assist meeting needs. LBM 01/12 per EMR. Will continue to follow. Recommendations: 1) Continue MM5 diet with thin liquids for ease of PO ST notified 01/01; cancel carb controlled/heart healthy diet restrictions given malnutrition and poor intake majority of LOS 1.5 months 2) Encourage PO intake; total assist with meals 3) Dislikes Ensures per pt, magic cup shake BIDLD-encourage PO 4) IF PO trends regress to prior poor intake hx; consider NGT placement for EN if within POC given malnutrition status w/ poor PO hx >14 days. IF EN, continuous Glucerna 1.2 at 55 mL/hr goal rate to provide 1320 ml volume/day, 1584 kcal, 1063 ml water, and 79 g protein 5) appetite stimulant per physician discretion 6) Routine bowel care 7) Weekly scaled weights Addendum: 01/14/23 at [address] Amended: Links added.
--- NOTE | 2023-01-14 17:00 | NUR ---
I have reviewed and agree with interventions, assessments, and documentation by Amanda Duarte LVN.
[2023-01-14 18:00] VITALS: BP 172/89
--- NOTE | 2023-01-14 18:13 | NUR ---
Problems reprioritized. Patient report given, questions answered & plan of care reviewed with Jenelle EREVES.
[2023-01-14] MEDS: atorvastatin 20mg tablet PO SCH (21:32)
[2023-01-14] MEDS: insulin glargine (Lantus) pen - multi-dose SQ SCH (21:40)
[2023-01-14 22:00] VITALS: BP 165/89
[2023-01-15 03:11] LABS: CLARITY,URINE CLOUDY (Clear); COLOR,URINE YELLOW (Yellow); GLUCOSE, URINE NEGATIVE (Neg); KETONES,URINE NEGATIVE (Neg); LEUKOCYTE ESTERASE ,URINE MODERATE (Neg); NITRITES, URINE POSITIVE (Neg); OCCULT BLOOD,URINE LARGE (Neg); PROTEIN,URINE 100 mg/dl (Neg); UROBILINOGEN,URINE 0.2 E.U/dL (0.2-1.0)
[2023-01-15 03:25] LABS: UA COLLECTION TYPE STRAIGHT CATH
[2023-01-15 03:27] LABS: BACTERIA,URINE 4+ /HPF (Neg); RBC,URINE TNTC /HPF (0-2); SQUAMOUS EPITHELIAL CELL,UR FEW /LPF (FEW); WBC,URINE 30-50 /HPF (0-4)
[2023-01-15 03:28] LABS: WBC CLUMPS,URINE MODERATE /HPF (NEGATIVE)
[2023-01-15 03:29] LABS: CAL OXALATE CRYSTALS FEW /HPF (NEGATIVE)
[2023-01-15 03:30] LABS: AMORPHOUS URATES 1+
--- NOTE | 2023-01-15 06:36 | NUR ---
Problems reprioritized. Patient report given, questions answered & plan of care reviewed with LEANDRO CHERRY.
[2023-01-15] MEDS: clopidogrel 75mg tablet PO SCH (08:35)
[2023-01-15] MEDS: lisinopril 20mg tablet PO SCH (08:35)
[2023-01-15] MEDS: aspirin 81mg tab.chew PO SCH (08:35)
[2023-01-15] MEDS: nystatin 15 GM powder TP SCH ×2 (08:36→21:39)
[2023-01-15] MEDS: amLODIPine 5mg tablet PO SCH (08:36)
[2023-01-15] MEDS: heparin, porcine 5000 units/ml vial SQ SCH ×2 (08:37→21:39)
[2023-01-15 11:00] VITALS: BP 169/87
--- NOTE | 2023-01-15 17:00 | NUR ---
I have reviewed and agree with interventions, assessments and documentation by FANNY Rogers.
[2023-01-15 18:00] VITALS: BP 142/75
[2023-01-15 21:16] LABS: EOSINOPHILS # (AUTO) 0.1 X10'3 (0-0.9); WHITE BLOOD COUNT 8.6 X10'3 (4.5-11.0)
[2023-01-15 21:18] LABS: BASOPHILS % (AUTO) 0.5 % (0-1); EOSINOPHILS % (AUTO) 0.9 % (0-6); HEMATOCRIT 44.4 % (35.0-45.0); HEMOGLOBIN 14.7 g/dl (12.0-16.0); LYMPHOCYTES # (AUTO) 1.4 X10'3 (1.1-4.8); LYMPHOCYTES % (AUTO) 16.7 % (21-51); MEAN CORPUSCULAR HEMOGLOBIN 29.4 PG (27.0-31.0); MEAN CORPUSCULAR HGB CONC 33.1 g/dL (33.0-36.5); MEAN CORPUSCULAR VOLUME 88.9 FL (78-98); MEAN PLATELET VOLUME 7.7 FL (7.4-10.4); MONOCYTES # (AUTO) 0.6 X10'3 (0-0.9); MONOCYTES % (AUTO) 7.3 % (2-12); NEUTROPHILS # (AUTO) 6.4 X10'3 (1.8-7.7); NEUTROPHILS % (AUTO) 74.6 % (42-75); PLATELET COUNT 425 X10'3 (140-440); RED BLOOD COUNT 4.99 X10'6 (4.20-5.60); RED CELL DISTRIBUTION WIDTH 14.3 % (11.5-14.5)
[2023-01-15] MEDS: atorvastatin 20mg tablet PO SCH (21:24)
[2023-01-15 21:28] LABS: ALBUMIN 3.2 G/DL (3.4-5.0); ANION GAP 6 (8-16); BLOOD UREA NITROGEN 35 MG/DL (7-18); BUN/CREATININE RATIO 36.8 (6.6-38.0); CALCIUM 10.2 MG/DL (8.5-10.1); CHLORIDE 103 MMOL/L (99-107); CREATININE 0.95 MG/DL (0.40-0.90); GLUCOSE 136 MG/DL (70-104); SODIUM 140 MMOL/L (135-145); TOTAL CARBON DIOXIDE 30.7 MMOL/L (24-32); eGFR 60 ML/MIN
[2023-01-15] MEDS: insulin glargine (Lantus) pen - multi-dose SQ SCH (21:38)
--- NOTE | 2023-01-15 21:54 | NUR ---
Student Medication Administration: For this medication-pass time frame, all medication were reviewed, dispensed, administered and documented per hospital policy by Lian DINH [facility].
--- NOTE | 2023-01-15 23:46 | NUR ---
Student documentation: I have reviewed interventions, assessments performed and documented by Lian DINH [facility].
--- NOTE | 2023-01-16 04:57 | NUR ---
PT HAD ONE VOID EARLIER IN THE SHIFT INTO A BRIEF WHILE SITTING IN THE RECLINER. PT WAS THEN MOVED TO BED AND A WICK WAS USED. PT HAD NO URINE OUTPUT AND WAS BLADDER SCANNED AT 0457 WITH ONLY 82 ML IN BLADDER. PT IS REFUSING FLUIDS WHEN OFFERED.
[2023-01-16 05:41] VITALS: BP 141/61
--- NOTE | 2023-01-16 06:26 | NUR ---
Patient in room [facility] 349B. I have received report from Jenelle REEVES and had the opportunity to ask questions and assume patient care.
--- NOTE | 2023-01-16 06:36 | NUR ---
Problems reprioritized. Patient report given, questions answered & plan of care reviewed with FANNY CHERRY.
[2023-01-16] MEDS: nystatin 15 GM powder TP SCH ×2 (08:00→22:06)
[2023-01-16] MEDS: heparin, porcine 5000 units/ml vial SQ SCH ×2 (08:00→22:12)
[2023-01-16] MEDS: lisinopril 20mg tablet PO SCH (08:00)
[2023-01-16] MEDS: aspirin 81mg tab.chew PO SCH (09:48)
[2023-01-16] MEDS: clopidogrel 75mg tablet PO SCH (09:48)
[2023-01-16] MEDS: amLODIPine 5mg tablet PO SCH (09:49)
[2023-01-16 11:30] VITALS: BP 156/82
[2023-01-16 20:13] VITALS: BP 158/85
[2023-01-16] MEDS: insulin glargine (Lantus) pen - multi-dose SQ SCH (21:00)
[2023-01-16 22:00] VITALS: BP 158/88
--- NOTE | 2023-01-16 22:08 | NUR ---
Holding patient's Lantus for the night due to blood sugar of 101 at HS and morning blood sugar was 88. Charge Nurse aware.
[2023-01-16] MEDS: atorvastatin 20mg tablet PO SCH (22:11)
[2023-01-17 06:00] VITALS: BP 172/95
--- NOTE | 2023-01-17 06:03 | NUR ---
Problems reprioritized. Patient report given, questions answered & plan of care reviewed with LEANDRO CHERRY.
--- NOTE | 2023-01-17 06:39 | NUR ---
Patient in room [facility] 349B. I have received report from Jenelle REEVES and had the opportunity to ask questions and assume patient care.
[2023-01-17] MEDS: clopidogrel 75mg tablet PO SCH (09:39)
[2023-01-17] MEDS: lisinopril 20mg tablet PO SCH (09:39)
[2023-01-17] MEDS: amLODIPine 5mg tablet PO SCH (09:39)
[2023-01-17] MEDS: aspirin 81mg tab.chew PO SCH (09:40)
[2023-01-17] MEDS: nystatin 15 GM powder TP SCH ×2 (09:40→20:44)
[2023-01-17] MEDS: heparin, porcine 5000 units/ml vial SQ SCH ×2 (09:40→20:44)
[2023-01-17 11:00] VITALS: BP 158/89
[2023-01-17 18:00] VITALS: BP 111/71
--- NOTE | 2023-01-17 18:34 | NUR ---
CABINET PROFESSIONAL documentation: I have reviewed and agree with all interventions, assessments performed and documented by Sue Hernandez LVN.
[2023-01-17] MEDS: atorvastatin 20mg tablet PO SCH (20:45)
[2023-01-17] MEDS: insulin glargine (Lantus) pen - multi-dose SQ SCH (21:06)
[2023-01-17 23:00] VITALS: BP 137/80
--- NOTE | 2023-01-17 23:00 | NUR ---
Pt. is awake alert aphasic makes eye contact. Answers some questions with yes, no or nothing. Pt. swallows apple sauce with meds. Attempted to feed dinner but turns head to the right in refusal. Pt. has tendency to move body leftward in bed. Prompted leftside arms back and thigh with pillows. Appears comfortable. Slept most of the night.
[2023-01-18 05:30] VITALS: BP 135/69
--- NOTE | 2023-01-18 06:40 | NUR ---
Patient in room [facility]. I have received report from LEANDRO Trevizo and had the opportunity to ask questions and assume patient care.
[2023-01-18 09:17] LABS: BASOPHILS # (AUTO) 0.1 X10'3 (0-0.2); BASOPHILS % (AUTO) 0.6 % (0-1); EOSINOPHILS # (AUTO) 0.1 X10'3 (0-0.9); EOSINOPHILS % (AUTO) 1.1 % (0-6); HEMATOCRIT 42.4 % (35.0-45.0); LYMPHOCYTES # (AUTO) 1.6 X10'3 (1.1-4.8); LYMPHOCYTES % (AUTO) 16.8 % (21-51); MEAN CORPUSCULAR HEMOGLOBIN 29.7 PG (27.0-31.0); MEAN CORPUSCULAR HGB CONC 33.1 g/dL (33.0-36.5); MEAN CORPUSCULAR VOLUME 89.7 FL (78-98); MEAN PLATELET VOLUME 8.2 FL (7.4-10.4); MONOCYTES # (AUTO) 0.9 X10'3 (0-0.9); MONOCYTES % (AUTO) 9.2 % (2-12); NEUTROPHILS # (AUTO) 6.7 X10'3 (1.8-7.7); NEUTROPHILS % (AUTO) 72.3 % (42-75); PLATELET COUNT 401 X10'3 (140-440); RED BLOOD COUNT 4.72 X10'6 (4.20-5.60); RED CELL DISTRIBUTION WIDTH 14.3 % (11.5-14.5); WHITE BLOOD COUNT 9.3 X10'3 (4.5-11.0)
[2023-01-18 09:38] LABS: ALANINE AMINOTRANSFERASE 39 U/L (12-78); ALBUMIN 3.1 G/DL (3.4-5.0); ALBUMIN/GLOBULIN RATIO 0.9 (1.1-1.5); ALKALINE PHOSPHATASE 113 IU/L (46-116); ANION GAP 7 (8-16); ASPARTATE AMINO TRANSFERASE 25 U/L (10-37); BILIRUBIN,TOTAL 0.5 MG/DL (0.1-1.0); BLOOD UREA NITROGEN 42 MG/DL (7-18); BUN/CREATININE RATIO 28.8 (6.6-38.0); CALCIUM 10.5 MG/DL (8.5-10.1); CHLORIDE 102 MMOL/L (99-107); CREATININE 1.46 MG/DL (0.40-0.90); GLUCOSE 93 MG/DL (70-104); POTASSIUM 3.9 MMOL/L (3.5-5.1); SODIUM 140 MMOL/L (135-145); TOTAL CARBON DIOXIDE 31.2 MMOL/L (24-32); TOTAL PROTEIN 6.6 G/DL (6.4-8.2); eGFR 37 ML/MIN
[2023-01-18 10:00] VITALS: BP 132/74
[2023-01-18] MEDS: amLODIPine 5mg tablet PO SCH (10:19)
[2023-01-18] MEDS: lisinopril 20mg tablet PO SCH (10:19)
[2023-01-18] MEDS: heparin, porcine 5000 units/ml vial SQ SCH ×2 (10:19→21:10)
[2023-01-18] MEDS: clopidogrel 75mg tablet PO SCH (10:19)
[2023-01-18] MEDS: aspirin 81mg tab.chew PO SCH (10:19)
[2023-01-18] MEDS: nystatin 15 GM powder TP SCH ×2 (10:20→20:00)
[2023-01-18] MEDS: insulin Lispro (HumaLOG) vial - multi-dose SQ SCH ×2 (10:26→21:14)
[2023-01-18 18:00] VITALS: BP 130/71
--- NOTE | 2023-01-18 18:30 | NUR ---
Problems reprioritized. Patient report given, questions answered & plan of care reviewed with Kae Francisco RN.
[2023-01-18] MEDS: atorvastatin 20mg tablet PO SCH (21:09)
[2023-01-18] MEDS: insulin glargine (Lantus) pen - multi-dose SQ SCH (21:22)
[2023-01-18 22:00] VITALS: BP 133/75
[2023-01-19 05:30] VITALS: BP 116/66
--- NOTE | 2023-01-19 06:10 | NUR ---
Patient in room [facility]. I have received report from Kae Francisco RN and had the opportunity to ask questions and assume patient care.
[2023-01-19] MEDS: amLODIPine 5mg tablet PO SCH (08:18)
[2023-01-19] MEDS: lisinopril 20mg tablet PO SCH (08:18)
[2023-01-19] MEDS: clopidogrel 75mg tablet PO SCH (08:18)
[2023-01-19] MEDS: aspirin 81mg tab.chew PO SCH (08:18)
[2023-01-19] MEDS: nystatin 15 GM powder TP SCH ×2 (08:19→21:08)
[2023-01-19] MEDS: heparin, porcine 5000 units/ml vial SQ SCH ×2 (08:19→21:07)
[2023-01-19] MEDS: insulin Lispro (HumaLOG) vial - multi-dose SQ SCH ×2 (08:47→21:23)
[2023-01-19 10:00] VITALS: BP 158/77
[2023-01-19 18:00] VITALS: BP 142/70
--- NOTE | 2023-01-19 19:10 | NUR ---
Problems reprioritized. Patient report given, questions answered & plan of care reviewed with LEANDRO Francisco.
[2023-01-19] MEDS: atorvastatin 20mg tablet PO SCH (21:08)
[2023-01-19] MEDS: insulin glargine (Lantus) pen - multi-dose SQ SCH (21:25)
[2023-01-19 22:00] VITALS: BP 122/64
[2023-01-20] MEDS: nystatin 15 GM powder TP SCH ×2 (08:00→19:09)
[2023-01-20] MEDS: lisinopril 20mg tablet PO SCH (11:22)
[2023-01-20] MEDS: amLODIPine 5mg tablet PO SCH (11:22)
[2023-01-20] MEDS: clopidogrel 75mg tablet PO SCH (11:22)
[2023-01-20] MEDS: aspirin 81mg tab.chew PO SCH (11:22)
[2023-01-20] MEDS: heparin, porcine 5000 units/ml vial SQ SCH ×2 (11:23→16:03)
[2023-01-20 14:00] VITALS: BP 160/76
--- NOTE | 2023-01-20 16:00 | NUR ---
I have reviewed and agree with interventions, assessments,and documentation by FANNY Rogers.
--- NOTE | 2023-01-20 16:19 | NUR ---
F/u 01/20: Pt continues same poor meal intake fluctuations 0-25% ~2.5 w/ periods of more consistent intake though still refusals ~35% avg past 4 days per EMR. Pt drinks ~25% at most of magic cup smoothies despite frequent encouraging per STEAMER BLOCKER today. Overall still not meeting nutrition needs. CHRISSY d/w STEAMER BLOCKER and paged physician again regarding removal of carb controlled/heart healthy diet restrictions since not indicated w/ poor intake and severe malnutrition status. LBM 01/18 per EMR. Continue to by limited nutrition interventions at this time; will continue to follow. Recommendations: 1) Continue MM5 diet with thin liquids for ease of PO ST notified 01/01; cancel carb controlled/heart healthy diet restrictions given malnutrition and poor intake majority of LOS 1.5 months 2) Encourage PO intake; total assist with meals 3) Dislikes Ensures per pt, magic cup shake BIDLD-encourage PO 4) IF within pt POC and pt accepting; consider NGT placement for EN if within POC given malnutrition status w/ poor PO hx majority LOS. IF EN, continuous Glucerna 1.2 at 55 mL/hr goal rate to provide 1320 ml volume/day, 1584 kcal, 1063 ml water, and 79 g protein 5) appetite stimulant per physician discretion 6) Routine bowel care 7) Weekly scaled weights Addendum: 01/20/23 at [address] Amended: Links added.
[2023-01-20 18:00] VITALS: BP 145/87
[2023-01-20] MEDS: insulin Lispro (HumaLOG) vial - multi-dose SQ SCH (19:07)
[2023-01-20] MEDS: insulin glargine (Lantus) pen - multi-dose SQ SCH (21:02)
[2023-01-20] MEDS: atorvastatin 20mg tablet PO SCH (21:02)
[2023-01-20 23:00] VITALS: BP 122/86
[2023-01-21 06:00] VITALS: BP 133/69
--- NOTE | 2023-01-21 06:36 | NUR ---
Problems reprioritized. Patient report given, questions answered & plan of care reviewed with FANNY CHERRY.
[2023-01-21 07:08] LABS: BASOPHILS % (AUTO) 0.6 % (0-1); EOSINOPHILS # (AUTO) 0.1 X10'3 (0-0.9); EOSINOPHILS % (AUTO) 1.5 % (0-6); HEMATOCRIT 40.8 % (35.0-45.0); HEMOGLOBIN 13.8 g/dl (12.0-16.0); LYMPHOCYTES # (AUTO) 1.4 X10'3 (1.1-4.8); LYMPHOCYTES % (AUTO) 19.8 % (21-51); MEAN CORPUSCULAR HEMOGLOBIN 29.8 PG (27.0-31.0); MEAN CORPUSCULAR HGB CONC 33.8 g/dL (33.0-36.5); MEAN CORPUSCULAR VOLUME 88.3 FL (78-98); MEAN PLATELET VOLUME 8.1 FL (7.4-10.4); MONOCYTES # (AUTO) 0.7 X10'3 (0-0.9); MONOCYTES % (AUTO) 9.2 % (2-12); NEUTROPHILS # (AUTO) 4.9 X10'3 (1.8-7.7); NEUTROPHILS % (AUTO) 68.9 % (42-75); PLATELET COUNT 328 X10'3 (140-440); RED BLOOD COUNT 4.62 X10'6 (4.20-5.60); RED CELL DISTRIBUTION WIDTH 14.3 % (11.5-14.5); WHITE BLOOD COUNT 7.1 X10'3 (4.5-11.0)
[2023-01-21 07:22] LABS: ALANINE AMINOTRANSFERASE 43 U/L (12-78); ALBUMIN 2.7 G/DL (3.4-5.0); ALBUMIN/GLOBULIN RATIO 0.8 (1.1-1.5); ALKALINE PHOSPHATASE 103 IU/L (46-116); ANION GAP 5 (8-16); ASPARTATE AMINO TRANSFERASE 31 U/L (10-37); BILIRUBIN,TOTAL 0.6 MG/DL (0.1-1.0); BLOOD UREA NITROGEN 35 MG/DL (7-18); BUN/CREATININE RATIO 31.3 (10.0-20.0); CHLORIDE 102 MMOL/L (99-107); CREATININE 1.12 MG/DL (0.40-0.90); GLUCOSE 104 MG/DL (70-104); POTASSIUM 3.8 MMOL/L (3.5-5.1); SODIUM 138 MMOL/L (135-145); TOTAL CARBON DIOXIDE 31.2 MMOL/L (24-32); eGFR 50 ML/MIN
[2023-01-21] MEDS: clopidogrel 75mg tablet PO SCH (08:00)
[2023-01-21] MEDS: heparin, porcine 5000 units/ml vial SQ SCH ×2 (08:00→19:59)
[2023-01-21] MEDS: nystatin 15 GM powder TP SCH ×2 (08:00→20:07)
[2023-01-21] MEDS: lisinopril 20mg tablet PO SCH (09:33)
[2023-01-21] MEDS: aspirin 81mg tab.chew PO SCH (09:33)
[2023-01-21] MEDS: amLODIPine 5mg tablet PO SCH (09:34)
[2023-01-21 10:00] VITALS: BP 149/74
[2023-01-21] MEDS: acetaminophen 325mg tablet PO PRN (17:01)
--- NOTE | 2023-01-21 17:18 | NUR ---
patient has been using full sentences today . Set up to brush teeth and patient actively brushed own teeth. Washed hair. and cleansed penny- area. Refuses to eat food that is puree. Sat at bedside and watched patient chew a sandwhich. Patient ate entire turkey sandwich with no swallowing difficulties. Vitals stable. Sitting in chair at bedside at this time. All safety measures in place and call light in reach. Will continue to monitor.
[2023-01-21 18:00] VITALS: BP 139/75
--- NOTE | 2023-01-21 18:00 | NUR ---
I have reviewed interventions, assessments, and documentation by FANNY Rogers
--- NOTE | 2023-01-21 18:30 | NUR ---
Patient in room [facility]. I have received report from DILIP ESCOBEDO and had the opportunity to ask questions and assume patient care.
[2023-01-21] MEDS: insulin Lispro (HumaLOG) vial - multi-dose SQ SCH (19:44)
[2023-01-21] MEDS: atorvastatin 20mg tablet PO SCH (19:59)
[2023-01-21 22:00] VITALS: BP 140/78
[2023-01-21] MEDS: insulin glargine (Lantus) pen - multi-dose SQ SCH (22:22)
--- NOTE | 2023-01-22 06:15 | NUR ---
Patient in room [facility]. I have received report from Supriya MUSE RN and had the opportunity to ask questions and assume patient care.
--- NOTE | 2023-01-22 06:30 | NUR ---
Problems reprioritized. Patient report given, questions answered & plan of care reviewed with GERALD REEVES.
[2023-01-22 06:40] VITALS: BP 118/63
[2023-01-22 07:07] VITALS: BP 112/54
[2023-01-22] MEDS: amLODIPine 5mg tablet PO SCH (08:00)
[2023-01-22] MEDS: nystatin 15 GM powder TP SCH ×2 (08:00→20:09)
[2023-01-22] MEDS: heparin, porcine 5000 units/ml vial SQ SCH ×2 (08:00→20:06)
[2023-01-22] MEDS: lisinopril 20mg tablet PO SCH (08:00)
[2023-01-22] MEDS: aspirin 81mg tab.chew PO SCH (10:25)
[2023-01-22] MEDS: clopidogrel 75mg tablet PO SCH (10:25)
[2023-01-22] MEDS: acetaminophen 325mg tablet PO PRN (10:26)
--- NOTE | 2023-01-22 10:56 | NUR ---
Student documentation: I have reviewed and agree with all interventions, assessments performed and documented by Teri student nurse.
[2023-01-22 11:00] VITALS: BP 138/73
[2023-01-22 18:00] VITALS: BP 147/69
--- NOTE | 2023-01-22 18:11 | NUR ---
Problems reprioritized. Patient report given, questions answered & plan of care reviewed with Supriya Epps RN.
--- NOTE | 2023-01-22 18:30 | NUR ---
Patient in room [facility]. I have received report from GERALD REEVES and had the opportunity to ask questions and assume patient care.
[2023-01-22] MEDS: insulin Lispro (HumaLOG) vial - multi-dose SQ SCH (19:22)
[2023-01-22] MEDS: atorvastatin 20mg tablet PO SCH (20:06)
[2023-01-22] MEDS: insulin glargine (Lantus) pen - multi-dose SQ SCH (21:54)
[2023-01-22 22:00] VITALS: BP 145/77
[2023-01-23 06:00] VITALS: BP 175/90
--- NOTE | 2023-01-23 06:18 | NUR ---
Problems reprioritized. Patient report given, questions answered & plan of care reviewed with GERALD REEVES.
--- NOTE | 2023-01-23 07:07 | NUR ---
Patient in room [facility]. I have received report from and had the opportunity to ask questions and assume patient care.
[2023-01-23] MEDS: clopidogrel 75mg tablet PO SCH (07:59)
[2023-01-23] MEDS: amLODIPine 5mg tablet PO SCH (08:00)
[2023-01-23] MEDS: heparin, porcine 5000 units/ml vial SQ SCH ×2 (08:00→20:57)
[2023-01-23] MEDS: aspirin 81mg tab.chew PO SCH (08:01)
[2023-01-23] MEDS: lisinopril 20mg tablet PO SCH (08:01)
[2023-01-23] MEDS: nystatin 15 GM powder TP SCH ×2 (08:03→20:56)
[2023-01-23 10:00] VITALS: BP 163/83
[2023-01-23 18:00] VITALS: BP 146/83
--- NOTE | 2023-01-23 18:20 | NUR ---
Problems reprioritized. Patient report given, questions answered & plan of care reviewed with Supriya Epps RN.
--- NOTE | 2023-01-23 18:30 | NUR ---
Patient in room [facility]. I have received report from GERALD REEVES and had the opportunity to ask questions and assume patient care.
[2023-01-23] MEDS: insulin Lispro (HumaLOG) vial - multi-dose SQ SCH (19:37)
[2023-01-23] MEDS: atorvastatin 20mg tablet PO SCH (20:56)
[2023-01-23] MEDS: insulin glargine (Lantus) pen - multi-dose SQ SCH (21:56)
[2023-01-23 22:00] VITALS: BP 138/89
--- NOTE | 2023-01-24 06:27 | NUR ---
Problems reprioritized. Patient report given, questions answered & plan of care reviewed with RADHA REEVES.
--- NOTE | 2023-01-24 06:35 | NUR ---
Patient in room [facility]. I have received report from curry zapien rn and had the opportunity to ask questions and assume patient care.
[2023-01-24 07:20] VITALS: BP 150/72
[2023-01-24] MEDS: clopidogrel 75mg tablet PO SCH (08:39)
[2023-01-24] MEDS: aspirin 81mg tab.chew PO SCH (08:40)
[2023-01-24] MEDS: amLODIPine 5mg tablet PO SCH (08:40)
[2023-01-24] MEDS: heparin, porcine 5000 units/ml vial SQ SCH ×2 (08:40→20:06)
[2023-01-24] MEDS: lisinopril 20mg tablet PO SCH (08:40)
[2023-01-24] MEDS: nystatin 15 GM powder TP SCH ×2 (08:47→20:00)
[2023-01-24 10:00] VITALS: BP 144/74
--- NOTE | 2023-01-24 10:45 | NUR ---
Reassessment: PO intake continues to fluctuate though no nutrition intervention to be implemented as patient's code status is DNR with comfort care. Recommend removing heart healthy and CHO controlled diet restrictions in view of code status, poor PO intake, and BG levels controlled. LBM 01/22 per I&O. Will continue to follow per LOS. Recommendations: 1) Bowel care per comfort care measures Addendum: 01/24/23 at [address] Amended: Links added.
[2023-01-24 18:00] VITALS: BP 154/88
--- NOTE | 2023-01-24 18:34 | NUR ---
Problems reprioritized. Patient report given, questions answered & plan of care reviewed with BRITTANY REEVES.
[2023-01-24] MEDS: atorvastatin 20mg tablet PO SCH (19:57)
[2023-01-24] MEDS: insulin glargine (Lantus) pen - multi-dose SQ SCH (20:25)
[2023-01-24 22:00] VITALS: BP 153/90
--- NOTE | 2023-01-25 06:28 | NUR ---
Problems reprioritized. Patient report given, questions answered & plan of care reviewed with LIDA REEVES. Addendum: 01/25/23 at 0628 by Faith Cardoza RN Amended: Links added.
[2023-01-25] MEDS: clopidogrel 75mg tablet PO SCH (10:25)
[2023-01-25] MEDS: amLODIPine 5mg tablet PO SCH (10:26)
[2023-01-25] MEDS: aspirin 81mg tab.chew PO SCH (10:26)
[2023-01-25] MEDS: lisinopril 20mg tablet PO SCH (10:26)
[2023-01-25] MEDS: nystatin 15 GM powder TP SCH ×2 (10:29→20:43)
[2023-01-25] MEDS: heparin, porcine 5000 units/ml vial SQ SCH ×2 (10:36→20:43)
[2023-01-25 11:09] VITALS: BP 124/68
[2023-01-25 18:00] VITALS: BP 133/52
--- NOTE | 2023-01-25 18:18 | NUR ---
Problems reprioritized. Patient report given, questions answered & plan of care reviewed with Chaya REEVES.
[2023-01-25] MEDS: atorvastatin 20mg tablet PO SCH (20:42)
[2023-01-25] MEDS: insulin glargine (Lantus) pen - multi-dose SQ SCH (21:00)
[2023-01-25 22:00] VITALS: BP 151/94
--- NOTE | 2023-01-25 22:13 | NUR ---
Spoke to Dr. Mcclure on the phone regarding lantus/blood glucose. MD hernandez to hold alden cazares.
[2023-01-26 06:00] VITALS: BP 135/50
[2023-01-26] MEDS: nystatin 15 GM powder TP SCH ×2 (08:00→20:13)
[2023-01-26] MEDS: heparin, porcine 5000 units/ml vial SQ SCH (08:58)
[2023-01-26] MEDS: aspirin 81mg tab.chew PO SCH (08:58)
[2023-01-26] MEDS: amLODIPine 5mg tablet PO SCH (08:59)
[2023-01-26] MEDS: clopidogrel 75mg tablet PO SCH (09:00)
[2023-01-26] MEDS: lisinopril 20mg tablet PO SCH (09:00)
[2023-01-26 11:00] VITALS: BP 138/80
[2023-01-26 18:00] VITALS: BP 139/83
[2023-01-26 22:00] VITALS: BP 147/72
[2023-01-27 06:00] VITALS: BP 127/75
[2023-01-27] MEDS: nystatin 15 GM powder TP SCH ×2 (08:33→20:00)
[2023-01-27 12:07] VITALS: BP 169/82
[2023-01-27 18:00] VITALS: BP 142/81
[2023-01-27 22:00] VITALS: BP 139/78
--- NOTE | 2023-01-28 06:32 | NUR ---
Problems reprioritized. Patient report given, questions answered & plan of care reviewed with Fauzia. Addendum: 01/28/23 at 0633 by Nato Monroe RN Amended: Links added.
--- NOTE | 2023-01-28 06:58 | NUR ---
Patient in room [facility] 349. I have received report from Moe REEVES and had the opportunity to ask questions and assume patient care.
[2023-01-28 08:00] VITALS: BP 154/82
[2023-01-28] MEDS: nystatin 15 GM powder TP SCH ×2 (08:30→22:22)
--- NOTE | 2023-01-28 17:00 | NUR ---
I have reviewed and agree with interventions, assessments and documentation by Fauzia Fletcher LVN.
[2023-01-28 18:00] VITALS: BP 142/80
--- NOTE | 2023-01-28 18:43 | NUR ---
Problems reprioritized. Patient report given, questions answered & plan of care reviewed with Jenelle REEVES.
--- NOTE | 2023-01-28 21:00 | NUR ---
PT HAD A PBJ SANDWICH AND REALLY ENJOYED IT.
--- NOTE | 2023-01-29 06:25 | NUR ---
Patient in room [facility]. I have received report from Jenelle REEVES and had the opportunity to ask questions and assume patient care.
--- NOTE | 2023-01-29 06:30 | NUR ---
Problems reprioritized. Patient report given, questions answered & plan of care reviewed with FANNY VELAZQUEZ.
[2023-01-29] MEDS: nystatin 15 GM powder TP SCH ×2 (07:13→22:25)
[2023-01-29 11:52] VITALS: BP 160/79
--- NOTE | 2023-01-29 16:45 | NUR ---
Aditi- Patient's POA visiting and requesting to speak to director of social media marketing regarding disability paperwork. Notified Aditi that I attempted to contact director of social media marketing and they did not answer. Encouraged Aditi to call director of social media marketing and leave a voicemail, she became frustrated and stated, "this is just great, it's ridiculous. Cassi is losing so much money because it has been 49 days! dining services manager knew what days and times I come!." Aditi visited for about 10 mins
--- NOTE | 2023-01-29 17:53 | NUR ---
I have reviewed and agree with interventions, assessments and documentation by Fauzia Fletcher LVN.
[2023-01-29 18:00] VITALS: BP 155/74
--- NOTE | 2023-01-29 18:42 | NUR ---
Problems reprioritized. Patient report given, questions answered & plan of care reviewed with Annabelle RN.
[2023-01-29 22:00] VITALS: BP 154/61
--- NOTE | 2023-01-29 22:04 | NUR ---
Student documentation: I have reviewed interventions, assessments performed and documented by Adele DINH [facility].
--- NOTE | 2023-01-30 03:18 | NUR ---
student assessment reviewed and in agreement.
--- NOTE | 2023-01-30 06:51 | NUR ---
Patient in room [facility]. I have received report from Shoshana REEVES and had the opportunity to ask questions and assume patient care.
--- NOTE | 2023-01-30 07:03 | NUR ---
Problems reprioritized. Patient report given, questions answered & plan of care reviewed with Fauzia ESCOBEDO.
[2023-01-30] MEDS: nystatin 15 GM powder TP SCH ×2 (07:54→20:00)
--- NOTE | 2023-01-30 12:21 | NUR ---
F/u 01/30: Pt remains DNR w/ comfort care w/ LBM 01/29 per EMR. Will continue to follow. Recommendations: 1) Bowel care per comfort care measures Addendum: 01/30/23 at [address] Amended: Links added.
[2023-01-30 18:00] VITALS: BP 92/48
--- NOTE | 2023-01-30 19:08 | NUR ---
Problems reprioritized. Patient report given, questions answered & plan of care reviewed with Shoshana REEVES.
--- NOTE | 2023-01-30 19:13 | NUR ---
Patient resting comfortably. Respirations even and unlabored, no s/sx of distress noted. Addendum: 01/30/23 at 1913 by Fauzia Sahu LVN Amended: Links added.
[2023-01-31 06:00] VITALS: BP 118/74
--- NOTE | 2023-01-31 06:42 | NUR ---
Received report from LEANDRO Anna. Went over plan of care, concerns, questions. Patient checked on, NAD at this time. Bed in lowest position/ locked, call horacio w/ in reach.
--- NOTE | 2023-01-31 07:01 | NUR ---
Problems reprioritized. Patient report given, questions answered & plan of care reviewed with Corine REEVES.
[2023-01-31] MEDS: nystatin 15 GM powder TP SCH ×2 (08:53→20:04)
[2023-01-31 12:15] VITALS: BP 149/85
--- NOTE | 2023-01-31 18:38 | NUR ---
Gave report to Faith REEVES. Reviewed plan of care, answer questions. Patient is NAD at this time. Bed in lowest position, call leonard within reach.
[2023-01-31 22:00] VITALS: BP 138/84
--- NOTE | 2023-02-01 06:40 | NUR ---
Patient in room [facility]. I have received report from LEANDRO Cuevas and had the opportunity to ask questions and assume patient care.
--- NOTE | 2023-02-01 06:46 | NUR ---
Problems reprioritized. Patient report given, questions answered & plan of care reviewed with Radha RN.
[2023-02-01] MEDS: nystatin 15 GM powder TP SCH ×2 (08:41→20:27)
[2023-02-01 10:00] VITALS: BP 153/94
[2023-02-01] MEDS ORDERED: HYDROcodone/acetaminophen 5mg/325mg tablet PO PRN (13:35)
--- NOTE | 2023-02-02 06:20 | NUR ---
Problems reprioritized. Patient report given, questions answered & plan of care reviewed with kim Morales RN & FANNY Rogers.
--- NOTE | 2023-02-02 06:21 | NUR ---
Patient in room [facility]. I have received report from Radha REEVES and had the opportunity to ask questions and assume patient care.
[2023-02-02 06:33] VITALS: BP 142/93
[2023-02-02] MEDS: nystatin 15 GM powder TP SCH ×2 (08:11→20:00)
[2023-02-02 10:00] VITALS: BP 155/94
[2023-02-02 18:00] VITALS: BP 149/83
[2023-02-02 22:30] VITALS: BP 144/96
--- NOTE | 2023-02-03 06:34 | NUR ---
Problems reprioritized. Patient report given, questions answered & plan of care reviewed with Sue ESCOBEDO.
[2023-02-03] MEDS: nystatin 15 GM powder TP SCH ×2 (09:01→20:00)
--- NOTE | 2023-02-03 16:35 | NUR ---
Patient care provided to patient. Ate breakfast and lunch independently today. Currently in bed watching a movie. All safety measures in place and call light in reach. Will continue to monitor.
--- NOTE | 2023-02-03 18:00 | NUR ---
I have reviewed and agree with interventions, assessments and documentation by Sue Liu LVN
--- NOTE | 2023-02-03 18:15 | NUR ---
Patient in room [facility]. I have received report from Sue Jasso and had the opportunity to ask questions and assume patient care.
--- NOTE | 2023-02-04 05:47 | NUR ---
Bladder scan at 3AM for only around 150 in eugenia chaney and no incontinence. Only revealed 71cc. offered water to drink but patient declined. Addendum: 02/04/23 at 0548 by Vivienne Patten RN Have managed to reposition x2 thus far, and patient has denied pain each time.
--- NOTE | 2023-02-04 06:11 | NUR ---
Patient in room [facility] 349. I have received report from Vivienne REEVES and had the opportunity to ask questions and assume patient care.
--- NOTE | 2023-02-04 06:15 | NUR ---
Problems reprioritized. Patient report given, questions answered & plan of care reviewed with Sue Xavier.
[2023-02-04 06:33] VITALS: BP 143/76
[2023-02-04] MEDS: nystatin 15 GM powder TP SCH ×2 (08:00→20:00)
[2023-02-04 10:56] VITALS: BP 137/84
--- NOTE | 2023-02-04 17:00 | NUR ---
I have reviewed and agree with interventions, assessments, and documentation by Sue Liu LVN .
[2023-02-04 18:00] VITALS: BP 150/82
--- NOTE | 2023-02-04 18:20 | NUR ---
Patient in room [facility]. I have received report from Sue ESCOBEDO and had the opportunity to ask questions and assume patient care.
--- NOTE | 2023-02-05 06:14 | NUR ---
Problems reprioritized. Patient report given, questions answered & plan of care reviewed with Fauzia ESCOBEDO.
--- NOTE | 2023-02-05 06:44 | NUR ---
Patient in room [facility] 349. I have received report from Vivienne REEVES and had the opportunity to ask questions and assume patient care.
[2023-02-05] MEDS: nystatin 15 GM powder TP SCH ×2 (08:00→20:00)
[2023-02-05 10:00] VITALS: BP 161/87
--- NOTE | 2023-02-05 17:30 | NUR ---
I have reviewed and agree with interventions, assessments and documentation by Fauzia Fletcher LVN.
[2023-02-05 18:00] VITALS: BP 154/78
--- NOTE | 2023-02-05 18:06 | NUR ---
Problems reprioritized. Patient report given, questions answered & plan of care reviewed with Shoshana REEVES.
[2023-02-05 22:00] VITALS: BP 163/85
[2023-02-06 06:00] VITALS: BP 167/88
--- NOTE | 2023-02-06 06:34 | NUR ---
Patient in room [facility]. I have received report from Shoshana REEVES and had the opportunity to ask questions and assume patient care.
[2023-02-06] MEDS: nystatin 15 GM powder TP SCH ×2 (08:00→20:00)
--- NOTE | 2023-02-06 15:46 | NUR ---
LN inquired with patient- "do you want to be comfort care?" Patient stated no. LN asked patient "Do you want to take your medication like you used to?" Patient stated "yes, I want to." Loyda- restuarant crew worker notified, Loyda stated that she would talk with patient. Patient is not confused and is able to converse in small sentences Addendum: 02/06/23 at 1649 by Fauzia Sahu LVN Loyda notified LN that she will attempt to converse with patient today, if unable to today then first thing tomorrow
--- NOTE | 2023-02-06 18:25 | NUR ---
Problems reprioritized. Patient report given, questions answered & plan of care reviewed with Chaya REEVES.
--- NOTE | 2023-02-06 18:34 | NUR ---
Pt comfort care at this time. Pt assessed and is comfortable with no signs of immediate distress. Will continue to monitor pain/comfort.
--- NOTE | 2023-02-07 06:19 | NUR ---
Patient in room [facility]. I have received report from LEANDRO Larkin and had the opportunity to ask questions and assume patient care.
[2023-02-07] MEDS: nystatin 15 GM powder TP SCH ×2 (08:40→20:37)
[2023-02-07 10:00] VITALS: BP 193/109
--- NOTE | 2023-02-07 11:18 | NUR ---
Sun ESCOBEDO advised Dr Garcia of the conversation that yesterdays FANNY Cage had with patient. Patient advised Chandubryan that she wanted to be a full code and no longer on comfort care. Dr Garcia wants Case management, certified social workers in health care, primary Nurse and charge nurse with the patients POA to be present for the conversation regarding code status and then let Dr Garcia be aware of the decision. Primary OFFICE EQUIPMENT TECHNICIANSherlyn Garsia will page certified social workers in health care, I have paged shoe parts caser. awaiting meeting to be set up. Addendum: 02/07/23 at 1219 by Aishwarya Walsh RN Zuleika pereira casemanervin will get Mickey
--- NOTE | 2023-02-07 11:30 | NUR ---
Informed MD of charted conversation prior nurse had with patient regarding code status. MD requested meeting with case management, social science research assistant, primary nurse, charge nurse, and patients POA, and to let him know of outcome. environmental services associate made aware, case management made aware, waiting for meeting to be set up.
--- NOTE | 2023-02-07 13:57 | NUR ---
Reassessment: PO intake fluctuates however overall not adequate to meet estimated nutrient needs. No nutrition intervention to be implemented as code status remains DNR with comfort care. [facility] 02/02. Recommend bowel care per comfort care measures. Will continue to follow per LOS. Recommendations: 1) Bowel care per comfort care measures Addendum: 02/07/23 at [address] Amended: Links added.
--- NOTE | 2023-02-07 16:14 | NUR ---
Paged social security assessor that Phyllis is at patients bedside. No answer on Zuleika Stewardagers phone number I believe she has gone home for the day. Paged Dr Garcia to advise. Addendum: 02/07/23 at 1633 by Aishwarya Walsh RN Dr Garcia called back and spoke to Aditi LYON for patient on the phone. After conversation Dr Garcia called and wanted me to go and speak to Phyllis and verify the conversation they had together via phone. I asked Aditi about the conversation with Dr Garcia and she verbalized discussing and Aditi would like patient to remain comfort care DNR and that patient is confused and unable to make decisions.
--- NOTE | 2023-02-07 18:27 | NUR ---
Patient in room [facility]. I have received report from LEANDRO Mares and had the opportunity to ask questions and assume patient care. Addendum: 02/07/23 at 1828 by Sun Mcclain LVN, LVN *Gave report.
--- NOTE | 2023-02-07 18:30 | NUR ---
Patient in room [facility]. I have received report from FANNY Garsia and had the opportunity to ask questions and assume patient care. Addendum: 02/07/23 at 1920 by Wero Mcguire RN Amended: Links added.
[2023-02-07 22:00] VITALS: BP 179/86
--- NOTE | 2023-02-07 22:00 | NUR ---
pt is alert, answers most questions with a yes or no answer. asked pt for date states "I don't know", asked pt how her roommate is she stated "Aditi" asked pt if she wants Aditi making decisions for her regarding healthcare pt stated "yes" Addendum: 02/08/23 at 0026 by Wero Mcguire RN Amended: Links added.
--- NOTE | 2023-02-08 06:24 | NUR ---
Problems reprioritized. Patient report given, questions answered & plan of care reviewed with FANNY Bhandari. Addendum: 02/08/23 at 0625 by Wero Mcguire RN Amended: Links added.
--- NOTE | 2023-02-08 06:30 | NUR ---
Received report from LEANDRO Mares. Reviewed plan of care, any concerns, questions addressed. Pt checked on, no acute distress at this time. Bed in lowest position/ locked, call leonard within reach.
[2023-02-08] MEDS: nystatin 15 GM powder TP SCH ×2 (08:43→20:19)
[2023-02-08 10:00] VITALS: BP 163/76
--- NOTE | 2023-02-08 18:17 | NUR ---
Report given to LEANDRO Mares. Reviewed plan of care, went over concerns for today. Patient is in no acute distress at this time.
[2023-02-08 18:30] VITALS: BP 163/77
--- NOTE | 2023-02-08 18:30 | NUR ---
Pt repositioned and sitting up in bed to assist with dinner. pt smilling and laughing answering yes and no questions Addendum: 02/08/23 at 1906 by Wero Mcguire RN Amended: Links added.
--- NOTE | 2023-02-09 06:12 | NUR ---
Problems reprioritized. Patient report given, questions answered & plan of care reviewed with FANNY Bhandari. Addendum: 02/09/23 at 0612 by Wero Mcguire RN Amended: Links added.
--- NOTE | 2023-02-09 06:29 | NUR ---
Received report from LEANDRO Mares. Reviewed plan of care, current condition, and reprioritized. Patient checked on, NAD at this time. Bed in lowest condition/ locked, call leonard within reach.
[2023-02-09] MEDS: nystatin 15 GM powder TP SCH ×2 (08:36→19:48)
--- NOTE | 2023-02-09 18:16 | NUR ---
Report given to LEANDRO Mares. Reviewed plan of care, reprioritized patients current condition/ needs. Patient is in no acute distress at this time
--- NOTE | 2023-02-09 18:30 | NUR ---
Patient in room [facility]. I have received report from FANNY Bhandari and had the opportunity to ask questions and assume patient care. Addendum: 02/09/23 at 1919 by Wero Mcguire RN Amended: Links added.
[2023-02-09 22:00] VITALS: BP 148/78
--- NOTE | 2023-02-10 06:25 | NUR ---
Problems reprioritized. Patient report given, questions answered & plan of care reviewed with FANNY Cage. Addendum: 02/10/23 at 0625 by Wero Mcguire RN Amended: Links added.
--- NOTE | 2023-02-10 06:35 | NUR ---
Patient in room [facility]. I have received report from Divina REEVES and had the opportunity to ask questions and assume patient care.
[2023-02-10] MEDS: nystatin 15 GM powder TP SCH ×2 (08:00→20:00)
[2023-02-10 10:00] VITALS: BP 150/85
--- NOTE | 2023-02-10 18:22 | NUR ---
Problems reprioritized. Patient report given, questions answered & plan of care reviewed with Divina REEVES.
[2023-02-10 18:30] VITALS: BP 162/83
--- NOTE | 2023-02-10 18:30 | NUR ---
Patient in room [facility]. I have received report from FANNY Cage and had the opportunity to ask questions and assume patient care. Addendum: 02/10/23 at 1940 by Wero Mcguire RN Amended: Links added.
--- NOTE | 2023-02-11 06:16 | NUR ---
Problems reprioritized. Patient report given, questions answered & plan of care reviewed with FANNY Cage. Addendum: 02/11/23 at 0616 by Wero Mcguire RN Amended: Links added.
--- NOTE | 2023-02-11 06:28 | NUR ---
Patient in room [facility]. I have received report from Divina REEVES and had the opportunity to ask questions and assume patient care.
[2023-02-11] MEDS: nystatin 15 GM powder TP SCH ×2 (08:00→20:23)
[2023-02-11 10:00] VITALS: BP 161/100
--- NOTE | 2023-02-11 17:00 | NUR ---
I have reviewed and agree with interventions, assessments and documentation by Fauzia Fletcher LVN.
--- NOTE | 2023-02-11 18:28 | NUR ---
Problems reprioritized. Patient report given, questions answered & plan of care reviewed with May REEVES.
--- NOTE | 2023-02-11 18:30 | NUR ---
Patient in room [facility]. I have received report from FANNY Cage and had the opportunity to ask questions and assume patient care. Patient sitting up with dinner tray, is in no obvious distress and reports no needs at this time.
[2023-02-11 20:00] VITALS: BP 160/84
--- NOTE | 2023-02-12 06:30 | NUR ---
Patient in room [facility]. I have received report from LEANDRO Olvera and had the opportunity to ask questions and assume patient care.
[2023-02-12] MEDS: nystatin 15 GM powder TP SCH ×2 (09:48→20:34)
[2023-02-12 10:00] VITALS: BP 173/85
[2023-02-12 18:00] VITALS: BP 179/92
--- NOTE | 2023-02-13 05:14 | NUR ---
REVIEWED CONFERENCE SERVICE COORDINATOR ASSESSMENT AND IN AGREEMENT.
--- NOTE | 2023-02-13 06:18 | NUR ---
Problems reprioritized. Patient report given, questions answered & plan of care reviewed with FANNY Pool.
--- NOTE | 2023-02-13 06:38 | NUR ---
Received report from FANNY Raygoza; reprioritized plan of care. Patient checked on, no acute distress at this time. Bed in lowest position/ locked, call leonard within reach. Bed alarm on.
[2023-02-13] MEDS: nystatin 15 GM powder TP SCH ×2 (08:11→20:56)
--- NOTE | 2023-02-13 18:25 | NUR ---
Gave report to LEANDRO King. Reviewed plan of care, reprioritized patients needs. Patient no acute distress at this time, comfortable.
--- NOTE | 2023-02-13 18:32 | NUR ---
Patient in room [facility]. I have received report from WALI ESCOBEDO and had the opportunity to ask questions and assume patient care.
--- NOTE | 2023-02-13 18:32 | NUR ---
Patient in room [facility]. I have received report from Kartik ESCOBEDO and had the opportunity to ask questions and assume patient care.
[2023-02-13 22:00] VITALS: BP 162/85
--- NOTE | 2023-02-14 04:34 | NUR ---
Student documentation: I have reviewed and agree with all interventions, assessments performed and documented by RIVERA REEVES.
--- NOTE | 2023-02-14 04:35 | NUR ---
Student Medication Administration: For this medication-pass time frame, all medication were reviewed, dispensed, administered and documented per hospital policy by RIVERA FLAHERTY.
--- NOTE | 2023-02-14 06:20 | NUR ---
Problems reprioritized. Patient report given, questions answered & plan of care reviewed with Corine.
--- NOTE | 2023-02-14 06:23 | NUR ---
Problems reprioritized. Patient report given, questions answered & plan of care reviewed with WALI ESCOBEDO.
--- NOTE | 2023-02-14 06:27 | NUR ---
Received report from LEANDRO King. Reprioritized patient's plan of care, current status. Patient checked on, no acute distress at this time. Bed in lowest position/ locked, call leonard within reach.
[2023-02-14] MEDS: nystatin 15 GM powder TP SCH ×2 (08:32→19:55)
[2023-02-14 10:00] VITALS: BP 164/76
--- NOTE | 2023-02-14 18:35 | NUR ---
Relayed information, reprioritized care to FANNY Foster. Patient is NAD at this time.
--- NOTE | 2023-02-15 06:02 | NUR ---
THIRD OFFICER documentation: I have reviewed and agree with all interventions, assessments performed and documented by Kristin Lucia THIRD OFFICER.
[2023-02-15 10:00] VITALS: BP 190/100
[2023-02-15] MEDS: nystatin 15 GM powder TP SCH ×2 (10:54→21:36)
--- NOTE | 2023-02-15 18:45 | NUR ---
Problems reprioritized. Patient report given, questions answered & plan of care reviewed with Airam REEVES.
[2023-02-15 21:00] VITALS: BP 180/81
--- NOTE | 2023-02-16 06:15 | NUR ---
Problems reprioritized. Patient report given, questions answered & plan of care reviewed with Corine.
--- NOTE | 2023-02-16 06:15 | NUR ---
Received report from LEANDRO Spears. Reviewed plan of care. Patient check on, NAD at this time.
[2023-02-16] MEDS: nystatin 15 GM powder TP SCH ×2 (08:28→23:29)
[2023-02-16 13:29] VITALS: BP 176/84
[2023-02-16 18:00] VITALS: BP 180/95
--- NOTE | 2023-02-16 18:35 | NUR ---
Patient in room [facility]. I have received report from Corine ESCOBEDO and had the opportunity to ask questions and assume patient care.
--- NOTE | 2023-02-16 18:35 | NUR ---
Problems reprioritized. Patient report given, questions answered & plan of care reviewed with Alondra REEVES.
--- NOTE | 2023-02-16 19:30 | NUR ---
Called MD with regard to elevated BP. Patient denies having any pain at this time. No new orders received, deferring to day MD .
[2023-02-16 22:00] VITALS: BP 169/87
--- NOTE | 2023-02-17 06:30 | NUR ---
Patient in room [facility] 349. I have received report from Vivienne REEVES and had the opportunity to ask questions and assume patient care.
--- NOTE | 2023-02-17 07:10 | NUR ---
Problems reprioritized. Patient report given, questions answered & plan of care reviewed with Fauzia ESCOBEDO.
[2023-02-17] MEDS: nystatin 15 GM powder TP SCH ×2 (08:00→21:17)
[2023-02-17 11:00] VITALS: BP 182/90
--- NOTE | 2023-02-17 12:25 | NUR ---
PAGER ID: [phone] MESSAGE: Aimee Nava: BP has been trending up- noted . No PRN available. Do you want to treat? ANDREW Abdul Addendum: 02/17/23 at 1331 by Fauzia Sahu LVN 2nd page sent, no new orders at this time PAGER ID: [phone] MESSAGE: Aimee Nava: BP has been trending up- noted . No PRN available. Do you want to treat? ANDREW Abdul Addendum: 02/17/23 at 1825 by Fauzia Sahu LVN No response from
--- NOTE | 2023-02-17 17:07 | NUR ---
F/u 02/17: Pt remains DNR with comfort care. LBM 02/15 per EMR. Will continue to follow. Recommendations: 1) Bowel care per comfort care measures Addendum: 02/17/23 at [address] Amended: Links added.
--- NOTE | 2023-02-17 17:30 | NUR ---
I have reviewed interventions, assessments performed, and documentation by Fauzia Fletcher LVN.
--- NOTE | 2023-02-17 18:25 | NUR ---
Problems reprioritized. Patient report given, questions answered & plan of care reviewed with Jenelle REEVES.
[2023-02-17 23:00] VITALS: BP 170/82
--- NOTE | 2023-02-18 06:29 | NUR ---
Problems reprioritized. Patient report given, questions answered & plan of care reviewed with FANNY VELAZQUEZ.
--- NOTE | 2023-02-18 06:30 | NUR ---
Patient in room [facility]. I have received report from Jenelle REEVES and had the opportunity to ask questions and assume patient care.
[2023-02-18] MEDS: nystatin 15 GM powder TP SCH ×2 (08:00→20:00)
[2023-02-18 10:00] VITALS: BP 155/88
--- NOTE | 2023-02-18 18:00 | NUR ---
I have reviewed and agree with interventions, assessments, and documentation by Fauzia Fletcher LVN.
--- NOTE | 2023-02-18 18:31 | NUR ---
Problems reprioritized. Patient report given, questions answered & plan of care reviewed with Jenelle REEVES.
--- NOTE | 2023-02-18 19:15 | NUR ---
Patient in room [facility]. I have received report from LEANDRO Almanzar and had the opportunity to ask questions and assume patient care. Patient sitting up, dinner in front of her, she only at chips and drank milk. I will continue to monitor.
[2023-02-18 21:27] VITALS: BP 174/87
--- NOTE | 2023-02-19 06:38 | NUR ---
Problems reprioritized. Patient report given, questions answered & plan of care reviewed with LEANDRO Akbar.
[2023-02-19 10:00] VITALS: BP 156/83
[2023-02-19] MEDS: nystatin 15 GM powder TP SCH ×2 (10:30→21:46)
--- NOTE | 2023-02-19 14:36 | NUR ---
Patient in room [facility]. I have received report from LEANDRO Harrington and had the opportunity to ask questions and assume patient care.
--- NOTE | 2023-02-19 18:46 | NUR ---
Problems reprioritized. Patient report given, questions answered & plan of care reviewed with LEANDRO MORENO.
--- NOTE | 2023-02-19 22:37 | NUR ---
Student documentation: I have reviewed interventions, assessments performed and documented by Alba [facility].
--- NOTE | 2023-02-20 06:30 | NUR ---
Patient in room [facility]. I have received report from LEANDRO Anna and had the opportunity to ask questions and assume patient care.
[2023-02-20] MEDS: nystatin 15 GM powder TP SCH ×2 (08:00→20:30)
[2023-02-20 11:38] VITALS: BP 205/99
--- NOTE | 2023-02-20 15:42 | NUR ---
EKG MANAGER documentation: I have reviewed and agree with all interventions, assessments performed and documented by Sun Seals LVN .
[2023-02-20 18:00] VITALS: BP 163/97
--- NOTE | 2023-02-21 06:30 | NUR ---
Patient in room [facility]. I have received report from Shoshana REEVES & FANNY Garsia and had the opportunity to ask questions and assume patient care.
[2023-02-21] MEDS: nystatin 15 GM powder TP SCH ×2 (08:00→20:00)
--- NOTE | 2023-02-21 18:20 | NUR ---
Problems reprioritized. Patient report given, questions answered & plan of care reviewed with LEANDRO Lopez.
[2023-02-22] MEDS: nystatin 15 GM powder TP SCH ×2 (09:31→20:50)
--- NOTE | 2023-02-22 18:34 | NUR ---
Patient with aide, eating dinner, all needs met at this time. Patient care provided with primary nurse, Chaya REEVES. Problems reprioritized. Patient report given, questions answered and plan of care reviewed with LEANDRO Lopez.
--- NOTE | 2023-02-23 07:28 | NUR ---
Patient in room [facility]. I have received report from Jessica REEVES and had the opportunity to ask questions and assume patient care.
[2023-02-23 11:54] VITALS: BP 158/81
[2023-02-23] MEDS: nystatin 15 GM powder TP SCH ×2 (15:52→20:34)
--- NOTE | 2023-02-23 16:39 | NUR ---
Student documentation: I have reviewed all interventions, assessments performed and documented by DODIE THOMAS
--- NOTE | 2023-02-23 18:20 | NUR ---
Problems reprioritized. Patient report given, questions answered & plan of care reviewed with LEANDRO Mares. Care done with LEANDRO Astorga & Chaya REEVES.
--- NOTE | 2023-02-23 18:30 | NUR ---
Patient in room [facility]. I have received report from LEANDRO HILTON, DELPHINE and had the opportunity to ask questions and assume patient care. Addendum: 02/23/23 at 2035 by Wero Mcguire RN Amended: Links added.
--- NOTE | 2023-02-24 06:10 | NUR ---
Received report from LEANDRO Mares. Went over patients plan of care. Patient checked on, no acute distress at this time. Bed in lowest position/ locked, call leonard within reach, fluids present.
--- NOTE | 2023-02-24 06:28 | NUR ---
Problems reprioritized. Patient report given, questions answered & plan of care reviewed with FANNY LIZARRAGA. Addendum: 02/24/23 at 0929 by Wero Mcguire RN Amended: Links added.
[2023-02-24] MEDS: nystatin 15 GM powder TP SCH ×2 (08:17→20:00)
--- NOTE | 2023-02-24 18:00 | NUR ---
I have reviewed and agree with interventions, assessments performed, and documentation by Corine Liu LVN.
--- NOTE | 2023-02-24 18:20 | NUR ---
Reprioritized patients plan of care. NAD at this time. Report given to LEANDRO Mares.
--- NOTE | 2023-02-24 18:30 | NUR ---
Patient in room [facility]. I have received report from FANNY Bhandari and had the opportunity to ask questions and assume patient care. Addendum: 02/24/23 at 1928 by Wero Mcguire RN Amended: Links added.
--- NOTE | 2023-02-24 19:25 | NUR ---
leaning over edge of rail with head, repositioned with pillows, warm blanket given, sitting up in bed eating dinner and protein shake by self. Addendum: 02/24/23 at 6 by Wero Mcguire RN Amended: Links added.
--- NOTE | 2023-02-25 06:36 | NUR ---
Problems reprioritized. Patient report given, questions answered & plan of care reviewed with LEANDRO Lyn. Addendum: 02/25/23 at 0637 by Wero Mcguire RN Amended: Links added.
[2023-02-25] MEDS: nystatin 15 GM powder TP SCH ×2 (08:00→20:00)
[2023-02-25 10:00] VITALS: BP 201/96
--- NOTE | 2023-02-25 18:45 | NUR ---
Patient in room [facility]. I have received report from LEANDRO Lyn and had the opportunity to ask questions and assume patient care. Patient sitting up eating dinner, in no obvious distress. I will continue to monitor.
[2023-02-26] MEDS: nystatin 15 GM powder TP SCH ×2 (08:00→20:00)
--- NOTE | 2023-02-26 16:40 | NUR ---
Patient alert, able to make needs known to staff. Uses sentences appropriately. Had left sided weakness but uses right hand in place. Assisted with feeding. Incontinent of bowel and bladder. WIK in place with normal urine output. No c/o pain or discomfort. Skin intact. Cleansed panis and applied Nystatin as ordered. All safety measures in place and call light and fresh water at bedside. Will continue to monitor until report to physics technician.
--- NOTE | 2023-02-26 18:45 | NUR ---
Patient in room [facility]. I have received report from FANNY Rogers and had the opportunity to ask questions and assume patient care.
--- NOTE | 2023-02-26 19:06 | NUR ---
GRINDER LAP documentation: I have reviewed and agree with all interventions, assessments performed and documented by Sue ESCOBEDO.
[2023-02-26 22:00] VITALS: BP 170/80
--- NOTE | 2023-02-26 22:00 | NUR ---
LVNdocumentation: I have reviewed and agree with all interventions, assessments performed and documented by Kristin Lucia LVN.
[2023-02-27 06:00] VITALS: BP 152/83
--- NOTE | 2023-02-27 06:11 | NUR ---
Problems reprioritized. Patient report given, questions answered & plan of care reviewed with FANNY ANDRE.
--- NOTE | 2023-02-27 06:37 | NUR ---
Patient in room [facility]. I have received report from FANNY Foster and had the opportunity to ask questions and assume patient care.
[2023-02-27] MEDS: nystatin 15 GM powder TP SCH (09:41)
--- NOTE | 2023-02-27 14:45 | NUR ---
DINING CAR CONDUCTOR documentation: I have reviewed and agree with all interventions, assessments performed and documented by Sun Seals LVN .
--- NOTE | 2023-02-27 17:26 | NUR ---
F/u 02/27: Pt remains DNR with comfort care. LBM 02/26 per EMR. Will continue to follow. Recommendations: 1) Bowel care per comfort care measures Addendum: 02/27/23 at [address] Amended: Links added.
--- NOTE | 2023-02-27 18:25 | NUR ---
Problems reprioritized. Patient report given, questions answered & plan of care reviewed with FANNY Foster.
--- NOTE | 2023-02-27 18:49 | NUR ---
Patient in room [facility]. I have received report from FANNY ANDRE and had the opportunity to ask questions and assume patient care.
--- NOTE | 2023-02-27 20:30 | NUR ---
MACHINE SET UP documentation: I have reviewed and agree with all interventions, assessments performed and documented by Kristin Lucia MACHINE SET UP .
--- NOTE | 2023-02-28 06:12 | NUR ---
Problems reprioritized. Patient report given, questions answered & plan of care reviewed with cuco tineo.
--- NOTE | 2023-02-28 06:45 | NUR ---
Patient in room [facility]. I have received report from FANNY Foster and had the opportunity to ask questions and assume patient care.
--- NOTE | 2023-02-28 18:15 | NUR ---
Problems reprioritized. Patient report given, questions answered & plan of care reviewed with FANNY Foster.
--- NOTE | 2023-02-28 18:18 | NUR ---
Patient in room [facility]. I have received report from FANNY Garsia and had the opportunity to ask questions and assume patient care.
--- NOTE | 2023-02-28 19:30 | NUR ---
SENIOR CONSUMER INSIGHTS CONSULTANT documentation: I have reviewed and agree with all interventions, assessments performed and documented by Kristin Lucia RN.
[2023-02-28] MEDS: nystatin 15 GM powder TP PRN (21:41)
--- NOTE | 2023-03-01 06:24 | NUR ---
Problems reprioritized. Patient report given, questions answered & plan of care reviewed with FANNY Thompson.
--- NOTE | 2023-03-01 14:43 | NUR ---
SLIP PRESSER documentation: I have reviewed and agree with all interventions, assessments performed and documented by Donna Vick LVN.
--- NOTE | 2023-03-01 18:12 | NUR ---
Problems reprioritized. Patient report given, questions answered & plan of care reviewed with Prudence RN.
--- NOTE | 2023-03-01 19:23 | NUR ---
Patient in room [facility]. I have received report from RADHA REEVES and had the opportunity to ask questions and assume patient care.
[2023-03-01] MEDS: nystatin 15 GM powder TP PRN (20:14)
--- NOTE | 2023-03-02 06:25 | NUR ---
Problems reprioritized. Patient report given, questions answered & plan of care reviewed with TONY ESCOBEDO.
--- NOTE | 2023-03-02 06:27 | NUR ---
Patient in room [facility]. I have received report from LEANDRO King and had the opportunity to ask questions and assume patient care.
--- NOTE | 2023-03-02 18:18 | NUR ---
Problems reprioritized. Patient report given, questions answered & plan of care reviewed with FANNY Carl.
--- NOTE | 2023-03-02 18:19 | NUR ---
Received report from Gonzales ESCOBEDO, reprioritized plan of care. Patient checked on, no acute distress at this time. Bed locked, lowest position, call leonard within reach. Fluids present.
--- NOTE | 2023-03-03 03:12 | NUR ---
AGREE WITH TRAFFIC RATE CLERK PHYSICAL ASSESSMENT CHARTED.
--- NOTE | 2023-03-03 06:21 | NUR ---
Patient in room [facility]. I have received report from Corine REEVES and had the opportunity to ask questions and assume patient care. Addendum: 03/03/23 at 0622 by Fauzia Sahu LVN FANNY
--- NOTE | 2023-03-03 06:26 | NUR ---
Report given to Fauzia ESCOBEDO. Patient checked on, no acute distress at this time. Bed locked, in lowest position, call leonard within reach. Fluids present.
--- NOTE | 2023-03-03 18:00 | NUR ---
I have reviewed and agree with interventions, assessments, and documentation by Fauzia Fletcher LVN.
--- NOTE | 2023-03-03 18:11 | NUR ---
Problems reprioritized. Patient report given, questions answered & plan of care reviewed with Malena REEVES. Addendum: 03/03/23 at 1818 by Fauzia Sahu LVN With Vivienne REEVES
--- NOTE | 2023-03-03 18:40 | NUR ---
Patient in room [facility]. I have received report from Fauzia ESCOBEDO and had the opportunity to ask questions and assume patient care.
--- NOTE | 2023-03-03 18:49 | NUR ---
No vital signs to be done per MD orders.
--- NOTE | 2023-03-04 06:30 | NUR ---
Patient in room [facility] 349. I have received report from Vivienne REEVES and had the opportunity to ask questions and assume patient care.
--- NOTE | 2023-03-04 06:35 | NUR ---
Problems reprioritized. Patient report given, questions answered & plan of care reviewed with Sue ESCOBEDO.
--- NOTE | 2023-03-04 06:39 | NUR ---
Patient in room [facility] 349. I have received report from Vivienne REEVES and had the opportunity to ask questions and assume patient care.
[2023-03-04 06:58] VITALS: BP 156/90
--- NOTE | 2023-03-04 10:36 | NUR ---
Fed patient breakfast. Patient incontinent of urine gave penny-care and new bed linen. Patient will be moved to orho floor my noon. All safety measures in place and call light in reach. Will continue to monitor.
--- NOTE | 2023-03-04 11:30 | NUR ---
Pt moved to room 4015B and FANNY Rogers will continue to provide this patient's care on the Ortho/Neuro unit. I have reviewed and agree with interventions, assessments, and documentation by Sue Liu LVN.
--- NOTE | 2023-03-04 17:21 | NUR ---
No acute changes this shift. No new orders. Will report to night nurse.
[2023-03-04 18:00] VITALS: BP 177/90
--- NOTE | 2023-03-04 18:10 | NUR ---
Patient in room [facility]TH[facility] 4015. I have received report from FANNY Rogers and had the opportunity to ask questions and assume patient care.
[2023-03-04 22:00] VITALS: BP 191/92
[2023-03-05 06:00] VITALS: BP 195/84
--- NOTE | 2023-03-05 06:15 | NUR ---
Patient in room [facility]TH[facility] 4015. I have received report from [] and had the opportunity to ask questions and assume patient care. Addendum: 03/05/23 at 0714 by Amanda River LVN Cary REEVES
--- NOTE | 2023-03-05 06:38 | NUR ---
Problems reprioritized. Patient report given, questions answered & plan of care reviewed with FANNY Patel.
[2023-03-05 18:00] VITALS: BP 189/92
--- NOTE | 2023-03-05 18:00 | NUR ---
I have reviewed and agree w/ interventions, assessments and documentation by Amanda Duarte LVN.
--- NOTE | 2023-03-05 18:15 | NUR ---
Patient in room [facility] 4015. I have received report from FANNY Patel and had the opportunity to ask questions and assume patient care.
--- NOTE | 2023-03-05 18:28 | NUR ---
Problems reprioritized. Patient report given, questions answered & plan of care reviewed with Cary REEVES.
[2023-03-05 22:00] VITALS: BP 196/94
--- NOTE | 2023-03-06 06:24 | NUR ---
Received report form LEANDRO Townsend. Problems reprioritized, questions answered & plan of care reviewed.
--- NOTE | 2023-03-06 06:26 | NUR ---
Problems reprioritized. Patient report given, questions answered & plan of care reviewed with FANNY Bhandari.
--- NOTE | 2023-03-06 13:37 | NUR ---
RN WOUND CARE documentation: I have reviewed and agree with all interventions, assessments performed and documented by Reed Diana .
--- NOTE | 2023-03-06 18:00 | NUR ---
Patient in room [facility]TH[facility] 4015. I have received report from FANNY Pool and had the opportunity to ask questions and assume patient care.
--- NOTE | 2023-03-06 18:04 | NUR ---
Received report form LEANDRO Grove. Problems reprioritized, questions answered & plan of care reviewed. Addendum: 03/06/23 at 1806 by Corine Mcclain LVN, LVN Gave report to LEANDRO Grove
[2023-03-06 22:09] VITALS: BP 175/96
--- NOTE | 2023-03-07 06:36 | NUR ---
Problems reprioritized. Patient report given, questions answered & plan of care reviewed with LEANDRO Mojica.
[2023-03-07 10:19] VITALS: BP 189/87
--- NOTE | 2023-03-07 18:34 | NUR ---
Problems reprioritized. Patient report given, questions answered & plan of care reviewed with Maine REEVES.
[2023-03-07 22:00] VITALS: BP 202/93
[2023-03-07 22:15] VITALS: BP 178/77
--- NOTE | 2023-03-08 06:18 | NUR ---
Problems reprioritized. Patient report given, questions answered & plan of care reviewed with Chaay REEVES.
--- NOTE | 2023-03-08 10:55 | NUR ---
Reassessment: Pt remains DNR with comfort care. LBM 03/05 per EMR. Will continue to follow per LOS. Recommendations: 1) Bowel care per comfort care measures Addendum: 03/08/23 at [address] Amended: Links added.
--- NOTE | 2023-03-08 18:08 | NUR ---
Report given back to Maine REEVES, all questions answered. Pt sitting up in bed eating with assist and is clean and dry.
--- NOTE | 2023-03-09 06:02 | NUR ---
Problems reprioritized. Patient report given, questions answered & plan of care reviewed with Chaya REEVES.
--- NOTE | 2023-03-09 18:16 | NUR ---
Report given to May, Patient resting comfortably, Patient had a good day, ate a good lunch, laughed at jokes and helped to feed herself more with right hand which was weaker prior. Left hand stronger and with prompting can eat finger foods.
--- NOTE | 2023-03-09 18:20 | NUR ---
Patient in room [facility]TH[facility] 4024. I have received report from LEANDRO Larkin and had the opportunity to ask questions and assume patient care. Patient sitting up in bed eating dinner, no concerns at this time.
[2023-03-09 22:00] VITALS: BP 171/108
[2023-03-10 05:00] VITALS: BP 162/74
--- NOTE | 2023-03-10 06:08 | NUR ---
Problems reprioritized. Patient report given, questions answered & plan of care reviewed with LEANDRO Rolon.
--- NOTE | 2023-03-10 06:30 | NUR ---
Patient in room [facility]TH[facility] 4024. I have received report from May Ríos RN and had the opportunity to ask questions and assume patient care.
[2023-03-10 10:00] VITALS: BP 175/92
--- NOTE | 2023-03-10 17:00 | NUR ---
I have reviewed and agree with interventions, assessments, and documentation by Gonzales Rai LVN.
--- NOTE | 2023-03-10 18:30 | NUR ---
Patient in room [facility]TH[facility] 4024. I have received report from JEFFREY and had the opportunity to ask questions and assume patient care.
--- NOTE | 2023-03-10 18:42 | NUR ---
Problems reprioritized. Patient report given, questions answered & plan of care reviewed with LEANDRO Morales.
[2023-03-10 22:00] VITALS: BP 192/91
--- NOTE | 2023-03-11 06:36 | NUR ---
Patient in room [facility]TH[facility] 4024. I have received report from LEANDRO Morales and had the opportunity to ask questions and assume patient care.
--- NOTE | 2023-03-11 06:42 | NUR ---
Problems reprioritized. Patient report given, questions answered & plan of care reviewed with JEFFREY.
--- NOTE | 2023-03-11 16:00 | NUR ---
DNR/Comfort Care patient. New order to insert wong for comfort measures. Wong inserted, pt tolerated well. F/C draining well no c/o discomfort from patient.
--- NOTE | 2023-03-11 16:40 | NUR ---
VELASCO CATHETER PLACED AFTER PRIMARY CARE NURSE REQUESTED, 16 G VELASCO USING STERILE PROCEDURE. 30 ML OF CLEAR YELLOW URINE CONFIRMED PLACEMENT, SECURED TO LEG. PATIENT TOLERATED PROCEDURE WELL.
[2023-03-11] MEDS: acetaminophen 325mg tablet PO PRN (19:18)
[2023-03-11 22:00] VITALS: BP 184/96
--- NOTE | 2023-03-12 02:26 | NUR ---
AGREE WITH BRIDGE INSPECTOR PHYSICAL ASSESSMENT CHARTED.
--- NOTE | 2023-03-12 06:33 | NUR ---
Problems reprioritized. Patient report given, questions answered & plan of care reviewed with Katelyn. ESCOBEDO.
--- NOTE | 2023-03-12 18:00 | NUR ---
I have reviewed and agree with interventions, assessments, and documentation by Esme Kirkland LVN.
--- NOTE | 2023-03-12 18:51 | NUR ---
Patient in room [facility]TH[facility] 4010. I have received report from FANNY Bullock and had the opportunity to ask questions and assume patient care.
--- NOTE | 2023-03-12 20:00 | NUR ---
I have reviewed and agree with all interventions, assessments performed and documented by FANNY FLORES.
--- NOTE | 2023-03-13 06:26 | NUR ---
Problems reprioritized. Patient report given, questions answered & plan of care reviewed with FANNY Schofield.
--- NOTE | 2023-03-13 06:33 | NUR ---
Patient in room [facility]TH[facility] 4024. I have received report from jose luis norwood and had the opportunity to ask questions and assume patient care.
--- NOTE | 2023-03-13 18:27 | NUR ---
Problems reprioritized. Patient report given, questions answered & plan of care reviewed with Kristin REEVES.
--- NOTE | 2023-03-13 18:42 | NUR ---
PORCELAIN WAXER documentation: I have reviewed and agree with all interventions, assessments performed and documented by Donna Vick LVN.
--- NOTE | 2023-03-13 19:06 | NUR ---
Patient in room [facility]TH[facility] 4010. I have received report from FANNY Thompson and had the opportunity to ask questions and assume patient care.
--- NOTE | 2023-03-14 04:40 | NUR ---
FANNY documentation: I have reviewed and agree with all interventions, assessments performed and documented by FANNY Foster. pt total care. turn q2 for incont stool.
[2023-03-14 06:00] VITALS: BP 151/76
--- NOTE | 2023-03-14 06:30 | NUR ---
Patient in room [facility]TH[facility] 4024. I have received report from Kristin ESCOBEDO and had the opportunity to ask questions and assume patient care.
--- NOTE | 2023-03-14 06:38 | NUR ---
Problems reprioritized. Patient report given, questions answered & plan of care reviewed with FANNY Thompson.
--- NOTE | 2023-03-14 16:02 | NUR ---
CHAIR PAD MAKER documentation: I have reviewed and agree with all interventions, assessments performed and documented by Donna Vick LVN.
--- NOTE | 2023-03-14 18:23 | NUR ---
Problems reprioritized. Patient report given, questions answered & plan of care reviewed with Keyana REEVES.
--- NOTE | 2023-03-14 18:24 | NUR ---
Patient in room ORTHO 4024. I have received report from LEANDRO Thompson and had the opportunity to ask questions and assume patient care.
[2023-03-14 22:20] VITALS: BP 276/201
--- NOTE | 2023-03-15 06:37 | NUR ---
Problems reprioritized. Patient report given, questions answered & plan of care reviewed with LEANDRO Garsia.
--- NOTE | 2023-03-15 07:01 | NUR ---
Patient in room ORTHO 4024. I have received report from LEANDRO Ridley and had the opportunity to ask questions and assume patient care.
--- NOTE | 2023-03-15 15:29 | NUR ---
STORAGE BATTERY INSPECTOR documentation: I have reviewed and agree with all interventions, assessments performed and documented by Sun Seals LVN.
--- NOTE | 2023-03-15 20:00 | NUR ---
Right horse doctor is weaker than the left horse doctor. Addendum: 03/16/23 at 0127 by Cherelle Corral RN Amended: Links added.
--- NOTE | 2023-03-16 01:27 | NUR ---
Agree with Kary ESCOBEDO except where I documented my findings. Addendum: 03/16/23 at 0153 by Cherelle Corral RN Agree with Kary ESCOBEDO's physical assessment except where I documented my findings.
--- NOTE | 2023-03-16 06:12 | NUR ---
Problems reprioritized. Patient report given to shahab ESCOBEDO, questions answered & plan of care reviewed with .
--- NOTE | 2023-03-16 06:30 | NUR ---
Patient in room ORTHO 4024. I have received report from Luisa ESCOBEDO and had the opportunity to ask questions and assume patient care.
[2023-03-16] MEDS: nystatin 15 GM powder TP PRN (07:52)
--- NOTE | 2023-03-16 17:02 | NUR ---
Patient resting in bed, bed bath given and washed patients hair and rinsed with basin. patient alert and able to make needs known to staff. refuses to eat meals due to no appetite. water encouraged throughout shift. sippy cup at bedside for patients independence. Catheter in place. All safety measures in place and call light in reach. will continue to monitor.
--- NOTE | 2023-03-16 18:41 | NUR ---
Patient in room ORTHO 4024. I have received report from Sue ESCOBEDO and had the opportunity to ask questions and assume patient care.
--- NOTE | 2023-03-16 22:25 | NUR ---
Agree with Yrn Izaguirre assessment except pt didn't speak to me just smiled or shrugged. feet deirdre dry and flaky, false nails about to fall off.
--- NOTE | 2023-03-17 06:20 | NUR ---
Patient in room ORTHO 4024. I have received report from Kary ESCOBEDO and had the opportunity to ask questions and assume patient care.
--- NOTE | 2023-03-17 06:21 | NUR ---
Problems reprioritized. Patient report given to Amanda ESCOBEDO, questions answered & plan of care reviewed with .
--- NOTE | 2023-03-17 10:52 | NUR ---
PAGER ID: [phone] MESSAGE: [id number]- Emmanuel, G- patient urine is yellow, thick with white cloudy color and sediment. pls advise? ANDREW Patel [phone]
--- NOTE | 2023-03-17 11:00 | NUR ---
Dr. Black called back and verbally gave authorization to get a UA with Culture. Order placed and will send to lab once obtained.
[2023-03-17 15:43] LABS: CLARITY,URINE CLOUDY (Clear); COLOR,URINE YELLOW (Yellow); GLUCOSE, URINE NEGATIVE (Neg); KETONES,URINE NEGATIVE (Neg); LEUKOCYTE ESTERASE ,URINE LARGE (Neg); NITRITES, URINE NEGATIVE (Neg); OCCULT BLOOD,URINE MODERATE (Neg); PH,URINE 8.5 (4.8-8.0); PROTEIN,URINE >=300 mg/dl (Neg); UROBILINOGEN,URINE 0.2 E.U/dL (0.2-1.0)
[2023-03-17 15:57] LABS: UA COLLECTION TYPE FOLEY CATH
[2023-03-17 16:13] LABS: BACTERIA,URINE 4+ /HPF (Neg); SQUAMOUS EPITHELIAL CELL,UR NONE SEEN /LPF (FEW)
--- NOTE | 2023-03-17 16:22 | NUR ---
PAGER ID: [phone] MESSAGE: [id number]- Roc Benitez- Patient UA results are in the chart. Pls advise? ANDREW Patel [phone]
--- NOTE | 2023-03-17 17:06 | NUR ---
reported to md about ua being positive, called back and said 'we will wait for the culture'
--- NOTE | 2023-03-17 18:00 | NUR ---
I have reviewed and agree with interventions, assessments, and documentation by Amanda Duarte LVN.
--- NOTE | 2023-03-17 18:42 | NUR ---
Problems reprioritized. Patient report given, questions answered & plan of care reviewed with Jayleen RN.
[2023-03-17] MEDS: nystatin 15 GM powder TP PRN (23:37)
--- NOTE | 2023-03-18 06:36 | NUR ---
Patient in room ORTHO 4024. I have received report from LEANDRO Clemens and had the opportunity to ask questions and assume patient care.
--- NOTE | 2023-03-18 08:35 | NUR ---
F/u 03/18: Pt remains DNR with comfort care. LBM 03/15 per EMR. Will continue to follow. Recommendations: 1) Bowel care per comfort care measures Addendum: 03/18/23 at [address] Amended: Links added.
[2023-03-18] MEDS ORDERED: acetaminophen 325mg tablet PO PRN (13:50)
[2023-03-18] MEDS ORDERED: bisacodyl 10mg suppository rectal RC PRN (13:50)
[2023-03-18] MEDS ORDERED: magnesium hydroxide 30ml (MOM) UD suspension PO ONE (14:02)
[2023-03-18] MEDS ORDERED: magnesium hydroxide 30ml (MOM) UD suspension PO PRN (14:20)
--- NOTE | 2023-03-18 17:00 | NUR ---
I have reviewed and agree with interventions, assessments. and documentation by Gonzales Rai LVN
--- NOTE | 2023-03-18 17:32 | NUR ---
reviewed and made changes to telemetry registered nurse physical assessment of patient
--- NOTE | 2023-03-18 18:55 | NUR ---
Problems reprioritized. Patient report given, questions answered & plan of care reviewed with LEANDRO Estrella. Addendum: 03/18/23 at 1857 by Gonzales Reddy - FANNY SOLE TIER Problems reprioritized. Patient report given, questions answered & plan of care reviewed with LEANDRO Palafox.
--- NOTE | 2023-03-18 19:00 | NUR ---
Patient in room ORTHO 4024. I have received report from Gonzales ESCOBEDO and had the opportunity to ask questions and assume patient care.
--- NOTE | 2023-03-18 20:00 | NUR ---
Assignment changed and reported off to Delores REEVES.
--- NOTE | 2023-03-19 06:54 | NUR ---
Report to Patrica REEVES. Addendum: 03/19/23 at 0656 by Lavern Villegas RN Report to Patrica Pool.
--- NOTE | 2023-03-19 17:00 | NUR ---
I have reviewed and agree with interventions, assessments and documentation by Esme Kirkland LVN.
--- NOTE | 2023-03-19 18:29 | NUR ---
Patient in room ORTHO 4014. I have received report from Esme ESCOBEDO and had the opportunity to ask questions and assume patient care.
[2023-03-19 22:00] VITALS: BP 118/64
--- NOTE | 2023-03-20 06:45 | NUR ---
Problems reprioritized. Patient report given, questions answered & plan of care reviewed with FANNY Cage.
--- NOTE | 2023-03-20 07:00 | NUR ---
Agree with Kristin ESCOBEDO physical assessment.
--- NOTE | 2023-03-20 15:04 | NUR ---
ENVIRONMENTAL GEOLOGIST documentation: I have reviewed and agree with all interventions, assessments performed and documented by Fauzia Sahu LVN .
--- NOTE | 2023-03-20 22:00 | NUR ---
Patient in room ORTHO 4024. I have received report from Fauzia ESCOBEDO and had the opportunity to ask questions and assume patient care.
--- NOTE | 2023-03-20 22:00 | NUR ---
Patient in room ORTHO 4024. I have received report from Fauzia ESCOBEDO and had the opportunity to ask questions and assume patient care.
--- NOTE | 2023-03-21 02:04 | NUR ---
Agree with Fauzia ESCOBEDO physical assessment except where I documented my findings.
--- NOTE | 2023-03-21 06:33 | NUR ---
Problems reprioritized. Patient report given, questions answered & plan of care reviewed with Elisabet ESCOBEDO.
--- NOTE | 2023-03-21 06:36 | NUR ---
Problems reprioritized. Patient report received from FANNY Foster. ,questions answered & plan of care reviewed. Addendum: 03/21/23 at 0637 by Corine Mcclain LVN, LVN LEANDRO Villarreal
--- NOTE | 2023-03-21 15:04 | NUR ---
STRAIGHT KNIFE MACHINE CUTTER documentation: I have reviewed and agree with all interventions, assessments performed and documented by Corine Diana LVN .
--- NOTE | 2023-03-21 18:17 | NUR ---
Problems reprioritized. Patient report given, questions answered & plan of care reviewed with LEANDRO Pedroza
--- NOTE | 2023-03-21 18:22 | NUR ---
Problems reprioritized. Patient report given, questions answered & plan of care reviewed with Aurora REEVES
--- NOTE | 2023-03-21 18:32 | NUR ---
Patient in room ORTHO 4024. I have received report from WALI ESCOBEDO and had the opportunity to ask questions and assume patient care.
[2023-03-21 22:00] VITALS: BP 175/80
--- NOTE | 2023-03-22 06:15 | NUR ---
Problems reprioritized. Patient report given, questions answered & plan of care reviewed with ZAKI RN.
--- NOTE | 2023-03-22 06:19 | NUR ---
Problems reprioritized. Patient report received from LEANDRO Pedroza. Questions answered & plan of care reviewed.
--- NOTE | 2023-03-22 15:23 | NUR ---
HAND CLOTH CUTTER documentation: I have reviewed and agree with all interventions, assessments performed and documented by Corine Diana LVN.
--- NOTE | 2023-03-22 18:30 | NUR ---
Reviewed plan of care, and gave report of the patient to LEANDRO Cuevas
[2023-03-22 22:00] VITALS: BP 156/83
--- NOTE | 2023-03-23 18:32 | NUR ---
gave report to cuco arvizu
--- NOTE | 2023-03-24 00:54 | NUR ---
APPELLATE LAW CLERK documentation: I have reviewed and agree with all interventions, assessments performed and documented by LOTTIE Paredes
--- NOTE | 2023-03-24 06:10 | NUR ---
Patient in room ORTHO 4024. I have received report from Christopher ESCOBEDO and had the opportunity to ask questions and assume patient care.
[2023-03-24 09:06] LABS: BASOPHILS # (AUTO) 0.1 X10'3 (0-0.2); EOSINOPHILS # (AUTO) 0.1 X10'3 (0-0.9); EOSINOPHILS % (AUTO) 1.1 % (0-6); HEMATOCRIT 42.9 % (35.0-45.0); HEMOGLOBIN 14.5 g/dl (12.0-16.0); LYMPHOCYTES # (AUTO) 1.5 X10'3 (1.1-4.8); LYMPHOCYTES % (AUTO) 18.3 % (21-51); MEAN CORPUSCULAR HEMOGLOBIN 29.9 PG (27.0-31.0); MEAN CORPUSCULAR HGB CONC 33.8 g/dL (33.0-36.5); MEAN CORPUSCULAR VOLUME 88.5 FL (78-98); MEAN PLATELET VOLUME 7.9 FL (7.4-10.4); MONOCYTES # (AUTO) 0.6 X10'3 (0-0.9); MONOCYTES % (AUTO) 7.7 % (2-12); NEUTROPHILS # (AUTO) 5.9 X10'3 (1.8-7.7); NEUTROPHILS % (AUTO) 71.9 % (42-75); PLATELET COUNT 412 X10'3 (140-440); RED BLOOD COUNT 4.85 X10'6 (4.20-5.60); RED CELL DISTRIBUTION WIDTH 13.3 % (11.5-14.5); WHITE BLOOD COUNT 8.2 X10'3 (4.5-11.0)
[2023-03-24 09:26] LABS: ALANINE AMINOTRANSFERASE 14 U/L (12-78); ALBUMIN 2.9 G/DL (3.4-5.0); ALBUMIN/GLOBULIN RATIO 0.9 (1.1-1.5); ALKALINE PHOSPHATASE 97 IU/L (46-116); ANION GAP 7 (8-16); ASPARTATE AMINO TRANSFERASE 15 U/L (10-37); BILIRUBIN,TOTAL 0.6 MG/DL (0.1-1.0); BLOOD UREA NITROGEN 29 MG/DL (7-18); BUN/CREATININE RATIO 27.1 (10.0-20.0); CALCIUM 9.6 MG/DL (8.5-10.1); CHLORIDE 105 MMOL/L (99-107); CREATININE 1.07 MG/DL (0.40-0.90); GLUCOSE 138 MG/DL (70-104); POTASSIUM 3.4 MMOL/L (3.5-5.1); SODIUM 143 MMOL/L (135-145); TOTAL CARBON DIOXIDE 30.8 MMOL/L (24-32); TOTAL PROTEIN 6.1 G/DL (6.4-8.2); eGFR 52 ML/MIN
[2023-03-24] MEDS ORDERED: potassium Cl 20 mEq SR tablet PO PRN ×2 (12:40)
[2023-03-24] MEDS ORDERED: magnesium 4gm in 100ml NS 100 ML IV PRN (12:40)
[2023-03-24] MEDS ORDERED: potassium Cl 40MEQ/1/2NS 520ml 520 ML IV PRN (12:40)
[2023-03-24] MEDS ORDERED: potassium Cl 20 mEq SR tablet PO STA (12:44)
--- NOTE | 2023-03-24 15:55 | NUR ---
PAGER ID: [phone] MESSAGE: [id number]- Emmanuel, Yu- seen patient K was low and potassium ordered. Patient on comfort care, do you want me to still administer? Pls advise? ANDREW Patel [phone]
--- NOTE | 2023-03-24 16:00 | NUR ---
Dr. Henning called back and advised to still administer the once time dose of potassium.
[2023-03-24] MEDS: HYDROcodone/acetaminophen 5mg/325mg tablet PO PRN (16:56)
[2023-03-24] MEDS ORDERED: K and/or MAG REPLACEMENT MC SCH (20:00)
--- NOTE | 2023-03-24 20:15 | NUR ---
Agree with Amanda SPECIAL EDUCATION INSTRUCTOR assessment.
--- NOTE | 2023-03-24 21:00 | NUR ---
Performing penny care and patient is very uncomfortable and itchy. Patient was pulling on wong cath and cased it to start leaking. Placed a new wong cath. Patient seems very uncomfortable and her eyes show that she is in pain. when asked if she is in pain or if she wants a pain pill, patient was unable to verbally tell me what she wanted. Will give pain pill if she is still in pain during my next assessment.
--- NOTE | 2023-03-24 22:00 | NUR ---
When I reassessed patient again, patient was resting in the bed with eyes closed. Patient seemed not to be in any pain or distress at this time. Will continue to monitor patient.
--- NOTE | 2023-03-25 06:10 | NUR ---
Problems reprioritized. Patient report given, questions answered & plan of care reviewed with Giuseppe ESCOBEDO.
[2023-03-25] MEDS: HYDROcodone/acetaminophen 5mg/325mg tablet PO PRN (16:55)
--- NOTE | 2023-03-25 18:00 | NUR ---
I have reviewed and agree with interventions, assessments, and documentation by Esme Kirkland LVN.
--- NOTE | 2023-03-25 18:30 | NUR ---
Patient in room ORTHO 4024. I have received report from FANNY Victoria and had the opportunity to ask questions and assume patient care.
[2023-03-25 22:00] VITALS: BP 116/76
--- NOTE | 2023-03-26 06:40 | NUR ---
Problems reprioritized. Patient report given, questions answered & plan of care reviewed with FANNY Victoria.
--- NOTE | 2023-03-26 17:30 | NUR ---
I have reviewed and agree with interventions, assessments, and documentation by Esme Kirkland LVN.
--- NOTE | 2023-03-26 19:07 | NUR ---
Patient in room ORTHO 4024. I have received report from FANNY Ramos and had the opportunity to ask questions and assume patient care.
[2023-03-26] MEDS: HYDROcodone/acetaminophen 5mg/325mg tablet PO PRN (19:52)
--- NOTE | 2023-03-26 23:00 | NUR ---
Agree with assessment done by Kristin Pool except pt not on Telemetry, no emesis noted.
--- NOTE | 2023-03-27 06:22 | NUR ---
Problems reprioritized. Patient report given, questions answered & plan of care reviewed with FANNY Ramos.
--- NOTE | 2023-03-27 09:17 | NUR ---
Reassessment: Pt remains DNR with comfort care. LBM 03/25 per EMR. Will continue to follow per LOS. Recommendations: 1) Bowel care per comfort care measures Addendum: 03/27/23 at [address] Amended: Links added.
--- NOTE | 2023-03-27 10:50 | NUR ---
report called to Adele at [facility]. Questions answered.
--- NOTE | 2023-03-27 11:00 | NUR ---
Pt discharged via medivan and attendants. Personal belongings sent with. Pt alert and appropriate at time of discharge.
--- NOTE | 2023-03-27 19:11 | NUR ---
I have reviewed and agree with all interventions, assessments performed and documented by Esme ESCOBEDO.
== END 2023-03-27 11:03 | DRG 64 ==
LOC: ER 15:35 → ED HOLD 12-09 17:22 → EDBEDREQ 12-09 20:10 → SUR 3N 12-10 01:36 → ORTHO 4S 03-04 11:00
PROVIDERS: ADMIT Internal Medicine; ATTEND Internal Medicine
DX: I63.89 Other cerebral infarction (principal); G93.41 Metabolic encephalopathy; N17.0 Acute kidney failure with tubular necrosis; N39.0 Urinary tract infection, site not specified; Z68.41 Body mass index [BMI] 40.0-44.9, adult; I13.0 Hypertensive heart and chronic kidney disease with heart failure and stage 1 through stage 4 chronic kidney disease, or unspecified chronic kidney disease; Z66 Do not resuscitate; Z51.5 Encounter for palliative care; R47.01 Aphasia; E66.01 Morbid (severe) obesity due to excess calories; I50.9 Heart failure, unspecified; E11.22 Type 2 diabetes mellitus with diabetic chronic kidney disease; N18.30 Chronic kidney disease, stage 3 unspecified; R29.701 NIHSS score 1; B96.20 Unspecified Escherichia coli [E. coli] as the cause of diseases classified elsewhere; B96.4 Proteus (mirabilis) (morganii) as the cause of diseases classified elsewhere; E78.5 Hyperlipidemia, unspecified; E87.6 Hypokalemia; F03.90 Unspecified dementia, unspecified severity, without behavioral disturbance, psychotic disturbance, mood disturbance, and anxiety; R63.0 Anorexia; R79.89 Other specified abnormal findings of blood chemistry; E86.0 Dehydration; Z87.891 Personal history of nicotine dependence; I69.328 Other speech and language deficits following cerebral infarction; Z79.82 Long term (current) use of aspirin; Z79.899 Other long term (current) drug therapy; Z88.2 Allergy status to sulfonamides; Z79.02 Long term (current) use of antithrombotics/antiplatelets
CPT/HCPCS: 36415; 70450; 70544; 70551; 71045; 80048; 80053; 80061; 81001; 81003; 82140; 82948; 83735; 83880; 84145; 84443; 84484; 85025; 85610; 85651; 87077; 87081; 87088; 87186; 92508; 92616; 93005; 93308; 93312; 93880; 94760; 97110; 97112; 97116; 97161; 97162; 97530; 97535; 99285; A4353; A4620; A5200; A6212; A6213; A6250; A6258; G0378; J0360; J1644; J1650; J1815; J1940; J2250; J2274; J2405; J3480; J3490; J7030